=== PATIENT | female | born 1940 | race Caucasian/White ===

== ENCOUNTER 2017-01-10 05:13 | Outpatient (CLI) | payer MEDICARE, OTHER | END 2017-01-10 05:14 | disposition short-term general hospital (02) | LOC: EMS 05:13 | PROVIDERS: ATTEND Surgery | DX: R07.9 Chest pain, unspecified (principal) | CPT/HCPCS: A0425; A0433 ==

== ENCOUNTER 2017-05-03 08:47 | Inpatient (IN) | payer MEDICARE, OTHER, MEDICAID ==
[2017-05-03] MEDS ORDERED: ONDANSETRON 4 MG/2 ML VIAL IVP STA (09:17)
[2017-05-03] MEDS ORDERED: HYDROmorphone 0.5 MG/0.5 ML SYRINGE IVP STA ×2 (09:17→12:32)
--- NOTE | 2017-05-03 09:17 | ED Physician Documentation ---
PD HPI ABD PAIN - Stated complaint Stated Complaint: ABD PX - Chief complaint Chief Complaint: Abd Pain - History obtained from History obtained from: Patient - History of Present Illness Timing - onset: How many days ago (2-3) Timing - duration: Days Timing - details: Gradual onset, Still present Quality: Cramping, Aching, Pain Location: LLQ Radiation: Left flank Improved by: No: Eating, Position Worsened by: Position. No: Eating, Breathing, Palpation Associated symptoms: Nausea. No: Fever, Vomiting, Diarrhea, Constipation, Dysuria, Chest pain Similar symptoms before: Diagnosis (kidney stones in the past with similar symptoms.) Review of Systems Constitutional: denies: Fever, Chills Eyes: reports: Loss of vision (chjronic blind) Nose: denies: Rhinorrhea / runny nose, Congestion Throat: denies: Sore throat Respiratory: denies: Cough GI: reports: Abdominal Pain, Nausea, Vomiting. denies: Constipation, Diarrhea : denies: Dysuria, Frequency Skin: reports: Rash, Lesions Neurologic: reports: Generalized weakness. denies: Focal weakness, Numbness, Near syncope Immunocompromised: denies: Immunocompromised PD PAST MEDICAL HISTORY - Past Medical History Cardiovascular: [place] Respiratory: None Neuro: None Endocrine/Autoimmune: Type 2 diabetes GI: Diverticulitis : Kidney stones - Past Surgical History Past Surgical History: Yes - Present Medications Home Medications: Ambulatory Orders Medication Instructions Recorded Confirmed Insulin Glargine,Hum.rec.anlog 40 unit SQ HS 11/12/12 11/12/12 [Lantus Solostar] Atorvastatin Calcium 80 mg PO DAILY 05/03/17 05/03/17 Carvedilol 3.125 mg PO DAILY 05/03/17 05/03/17 Gabapentin 100 mg PO DAILY 05/03/17 05/03/17 Hydroxychloroquine [Plaquenil] 200 mg PO DAILY 05/03/17 05/03/17 Isosorbide Mononitrate [Isosorbide 30 mg PO DAILY 05/03/17 05/03/17 Mononitrate ER] Losartan Potassium 25 mg PO DAILY 05/03/17 05/03/17 - Allergies Allergies/Adverse Reactions: Allergies Allergy/AdvReac Type Severity Reaction Status Date / Time Penicillins Allergy Unknown unknown Verified 05/03/17 08:53 lisinopril Allergy Unknown Verified 05/03/17 08:53 metformin Allergy Emesis Verified 05/03/17 08:53 - Social History Does the pt smoke?: No Smoking Status: Never smoker Does the pt drink ETOH?: No Does the pt have substance abuse?: No - Immunizations Immunizations are current?: Yes PD ED PE NORMAL - Vitals Vital signs reviewed: Yes - General General: Alert and oriented X 3, Well developed/nourished - HEENT HEENT: Moist mucous membranes, Pharynx benign - Neck Neck: Supple, no meningeal sign, No adenopathy - Cardiac Cardiac: RRR, No murmur - Respiratory Respiratory: Clear bilaterally - Abdomen Abdomen: Normal bowel sounds, Soft, Non distended, No organomegaly, Other ( tender left lower and suprapubic with local guarding. No percussion tenderness. ) - Female Female : Deferred - Rectal Rectal: Deferred - Back Back: No CVA TTP - Derm Derm: Normal color, Warm and dry - Extremities Extremities: No tenderness to palpate, Normal ROM s pain, No edema, No calf tenderness / cord - Neuro Neuro: Alert and oriented X 3, No motor deficit, Normal speech Eye Opening: Spontaneous Motor: Obeys Commands Verbal: Oriented GCS Score: 15 Results - Vitals Vitals: Vital Signs - 24 hr 05/03/17 05/03/17 05/03/17 08:48 11:08 11:09 Temperature 36.3 C L Heart Rate 67 78 62 Respiratory 16 12 12 Rate Blood Pressure 131/85 H 113/47 L O2 Saturation 96 97 99 05/03/17 12:44 Temperature 36.6 C Heart Rate 66 Respiratory 12 Rate Blood Pressure 126/61 O2 Saturation 96 Oxygen O2 Source Room air - Labs Labs: Laboratory Tests 05/03/17 05/03/17 05/03/17 09:30 09:30 09:30 WBC 9.4 RBC 4.48 Hgb 12.6 Hct 38.9 MCV 86.9 MCH 28.1 MCHC 32.4 RDW 14.7 Plt Count 148 MPV 9.0 Neut # 7.1 H Lymph # 1.5 [place] # 0.7 Eos # 0.1 Baso # 0.0 Absolute Nucleated RBC 0.00 Nucleated RBC % 0.0 Sodium 139 Potassium 4.5 Chloride 105 Carbon Dioxide 23 Anion Gap 11.0 BUN 16 Creatinine 1.1 H Estimated GFR (MDRD) 48 L Glucose 108 H Lactic Acid 1.4 Calcium 9.4 Total Bilirubin 0.8 AST 22 ALT 15 Alkaline Phosphatase 75 Total Protein 7.5 Albumin 4.1 Globulin 3.4 Albumin/Globulin Ratio 1.2 Lipase 20 L Urine Color Urine Clarity Urine pH Ur Specific [place] Urine Protein Urine Glucose (UA) Urine Ketones Urine Occult Blood Urine Nitrite Urine Bilirubin Urine Urobilinogen Ur Leukocyte Esterase Urine RBC Urine WBC Ur Squamous Epith Cells Urine Bacteria Ur Microscopic Review Urine Culture Comments 05/03/17 11:00 WBC RBC Hgb Hct MCV MCH MCHC RDW Plt Count MPV Neut # Lymph # [place] # Eos # Baso # Absolute Nucleated RBC Nucleated RBC % Sodium Potassium Chloride Carbon Dioxide Anion Gap BUN Creatinine Estimated GFR (MDRD) Glucose Lactic Acid Calcium Total Bilirubin AST ALT Alkaline Phosphatase Total Protein Albumin Globulin Albumin/Globulin Ratio Lipase Urine Color YELLOW Urine Clarity HAZY Urine pH 6.0 Ur Specific [place] 1.010 Urine Protein NEGATIVE Urine Glucose (UA) NEGATIVE Urine Ketones NEGATIVE Urine Occult Blood TRACE-LYSE Urine Nitrite POSITIVE H Urine Bilirubin NEGATIVE Urine Urobilinogen 0.2 (NORMAL) Ur Leukocyte Esterase MODERATE H Urine RBC 0-5 Urine WBC 11-25 H Ur Squamous Epith Cells MOD Squamous H Urine Bacteria Moderate H Ur Microscopic Review INDICATED Urine Culture Comments NOT INDICATED - Rads (name of study) abd/pelvic CT Radiology: Prelim report reviewed (no kidney stones. diverticula without diverticulitis. Appendix not seen but no inflammatory changes in area. Distended gallbladder with stones. ), EMP read contemporaneously (left kidney with mild swelling/stranding. ) PD MEDICAL DECISION MAKING - ED course Complexity details: reviewed results, considered differential, d/w patient Departure - Departure Disposition: ED Place in Observation Clinical Impression: Pyelonephritis UTI (urinary tract infection) Qualifiers: Urinary tract infection type: acute pyelonephritis Qualified Code(s): N10 - Acute pyelonephritis Abdominal pain Qualifiers: Abdominal location: left lower quadrant Qualified Code(s): R10.32 - Left lower quadrant pain Vomiting Qualifiers: Vomiting type: unspecified Vomiting Intractability: non-intractable Nausea presence: with nausea Qualified Code(s): R11.2 - Nausea with vomiting, unspecified Condition: Stable Record reviewed to determine appropriate education?: Yes
[2017-05-03] MEDS ORDERED: SODIUM CHLORIDE 0.9% 1,000 ML IV ONE (09:18)
[2017-05-03] MEDS ORDERED: KETOROLAC 60 MG/2 ML VIAL IVP STA (09:19)
[2017-05-03] MEDS ORDERED: HYDROmorphone 1 MG/ML SYRINGE IVP STA ×2 (09:21→12:38)
[2017-05-03] MEDS ORDERED: IOPAMIDOL-300 100 ML VIAL ONE (09:28)
[2017-05-03 09:44] LABS: BASOPHILS % (AUTO) 0.5 %; EOSINOPHILS # (AUTO) 0.1 10^3/uL (0.0-0.7); EOSINOPHILS % (AUTO) 1.2 %; HCT - HEMATOCRIT 38.9 % (37.0-47.0); HGB - HEMOGLOBIN 12.6 g/dL (12.0-16.0); LYMPHOCYTES # (AUTO) 1.5 10^3/uL (1.5-3.5); LYMPHOCYTES % (AUTO) 15.5 %; MEAN CORPUSCULAR HEMOGLOBIN 28.1 pg (27.0-31.0); MEAN CORPUSCULAR HGB CONC 32.4 g/dL (32.0-36.0); MEAN CORPUSCULAR VOLUME 86.9 fL (81.0-99.0); MONOCYTES # (AUTO) 0.7 10^3/uL (0.0-1.0); MONOCYTES % (AUTO) 7.2 %; NEUTROPHILS # (AUTO) 7.1 10^3/uL (1.5-6.6); NEUTROPHILS % (AUTO) 75.6 %; RED BLOOD COUNT 4.48 10^6/uL (4.20-5.40); RED CELL DISTRIBUTION WIDTH 14.7 % (12.0-15.0); UNCORRECTED WHITE BLOOD COUNT 9.4 x10^3/uL; WHITE BLOOD COUNT 9.4 x10^3/uL (4.8-10.8)
[2017-05-03] MEDS ORDERED: HYDROmorphone 1 MG/ML SYRINGE ONE ×2 (09:45→12:49)
[2017-05-03] MEDS ORDERED: KETOROLAC 15 MG/ML VIAL ONE (09:46)
[2017-05-03] MEDS ORDERED: ONDANSETRON 4 MG/2 ML VIAL ONE (09:46)
[2017-05-03 09:57] LABS: ALBUMIN/GLOBULIN RATIO 1.2 (1.0-2.2); BILIRUBIN,TOTAL 0.8 mg/dL (0.2-1.0); CALCIUM 9.4 mg/dL (8.5-10.3); CREATININE 1.1 mg/dL (0.4-1.0); POTASSIUM 4.5 mmol/L (3.5-5.0); TOTAL PROTEIN 7.5 g/dL (6.7-8.2)
[2017-05-03] MEDS ORDERED: IOPAMIDOL-300 100 ML VIAL IVP ONE (10:44)
[2017-05-03 11:08] LABS: BILIRUBIN,URINE NEGATIVE (NEGATIVE)
[2017-05-03 11:12] LABS: UA w/ MICROSCOPIC CHARGE YES
[2017-05-03 11:19] LABS: UR CULTURE IF IND NOT INDICATED
--- NOTE | 2017-05-03 11:19 | CT Preliminary Report ---
Exam: CT ABDOMEN/PELVIS W/ IMPRESSION: 1. Diverticulosis. No convincing diverticulitis. 2. No hydronephrosis. Bilateral nonobstructing renal stones and/or atherosclerotic arterial calcifica tions. 3. Cholelithiasis. No evidence for cholecystitis. Borderline prominent 10 mm CBD. [facility] SITE ID: [id number]
--- NOTE | 2017-05-03 11:21 | CT Report ---
EXAM: CT ABDOMEN AND PELVIS EXAM DATE: 05/03/2017 10:44 AM. CLINICAL HISTORY: Left abd pain for 3 days. COMPARISONS: Abdominal pelvic CT 08/10/2014. TECHNIQUE: Routine helical CT imaging was performed through the abdomen and pelvis. IV contrast: 100M L OF ISOVUE 300. Enteric contrast: No. Reconstructions: Coronal and sagittal. In accordance with CT protocol optimization, one or more of the following dose reduction techniques w ere utilized for this exam: automated exposure control, adjustment of mA and/or KV based on patient s ize, or use of iterative reconstructive technique. FINDINGS: Lung Bases: Cardiomegaly with extensive coronary atherosclerotic calcifications. Prior sternotomy. Liver: Normal. No masses. Gallbladder/Bile Ducts: Distended gallbladder with dependent stone. Borderline prominent 10 mm common bile duct. Spleen: Normal. Splenule noted. Pancreas: Normal. Adrenal Glands: Normal. Kidneys: Calcifications within both bilateral upper renal poles may be from nonobstructing stones and /or atherosclerotic arterial calcifications. Peritoneal Cavity/Bowel: Diverticulosis. Appendix not identified. No inflamed appendix evident. Lower ventral abdominal wall diastases. Pelvic Organs: Prior hysterectomy. Unremarkable bladder. Vasculature: No aneurysms or other significant abnormality. Bones: Thoracic spine DISH. Advanced lumbar spine degenerative changes. Mild convex left lower lumbar scoliosis. Other: None. IMPRESSION: 1. Diverticulosis. No convincing diverticulitis. 2. No hydronephrosis. Bilateral nonobstructing renal stones and/or atherosclerotic arterial calcifica tions. 3. Cholelithiasis. No evidence for cholecystitis. Borderline prominent 10 mm CBD. [facility] Referring Provider Line: [phone] SITE ID: [id number]
[2017-05-03] MEDS ORDERED: cefTRIAXone 1 GM in SODIUM CHLORIDE 0.9% MINIBAG 100 ML IV STA (12:06)
[2017-05-03] MEDS ORDERED: cefTRIAXone 1 GM VIAL ONE (12:25)
[2017-05-03] MEDS ORDERED: diphenhydrAMINE INJ 50 MG/ML VIAL IVP STA (13:32)
[2017-05-03] MEDS ORDERED: fentaNYL 100 MCG/2 ML VIAL IVP STA (13:33)
[2017-05-03] MEDS ORDERED: diphenhydrAMINE INJ 50 MG/ML VIAL ONE (13:55)
[2017-05-03] MEDS ORDERED: fentaNYL 100 MCG/2 ML VIAL ONE (13:57)
[2017-05-03] MEDS ORDERED: SODIUM CHLORIDE 0.9% 1,000 ML IV SCH (14:00)
[2017-05-03] MEDS ORDERED: DEXTROSE GEL 37.5 GM TUBE PO ONE (15:44)
[2017-05-03] MEDS: SODIUM CHLORIDE FLUSH 0.9% 10 ML SYRINGE IVP SCH ×2 (15:57→16:29)
[2017-05-03] MEDS ORDERED: DEXTROSE 50% ABBOJECT 25 GM/50 ML SYRINGE IVP SCH (16:02)
[2017-05-03] MEDS ORDERED: DEXTROSE 5%-0.45% NACL 1,000 ML IV ONE (16:03)
[2017-05-03] MEDS: SODIUM CHLORIDE FLUSH 0.9% 10 ML SYRINGE IVP PRN ×2 (16:29→18:43)
[2017-05-03] MEDS: oxyCODONE 5 MG TABLET PO PRN ×2 (16:52→21:36)
[2017-05-03] MEDS: ENOXAPARIN 40 MG/0.4 ML SYRINGE SUBQ SCH (16:53)
--- NOTE | 2017-05-03 17:05 | HISTORY & PHYSICAL EXAMINATION ---
Chief Complaint - Chief Complaint Chief Complaint: weakness, left flank pain. 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 She will be admitted as inpatient to the hospital service for further pneumonia work up, IVF, labs, cardiac/syncope work up for at least 2 midnights. History - Past Medical History Cardiovascular: reports: [place] Respiratory: reports: None Neuro: reports: None Endocrine/Autoimmune: reports: Type 2 diabetes GI: reports: Diverticulitis [employer]: reports: Breast cancer, Other (dysmenorhea) : reports: Incontinence, Kidney stones HEENT: reports: Chronic vision loss, Macular degeneration (BEST) Psych: reports: Anxiety Musculoskeletal: reports: None Derm: reports: None MRSA Hx?: No Other Past Medical History: In cardiac rehab - Past Surgical History /[employer]: reports: Hysterectomy, Oophrectomy, Mastectomy, Breast implants Cardiovascular: reports: CABG, Coronary stent - Family & Social History Family History: Mother: , Alcoholism, Father: , [place], Sister: , Cancer (ovarian) Living arrangement: At home Living Situation: Alone - Substance History Use: Uses substance without health or social issues: NONE Abuse: Recurrent use of substance despite neg consequences: NONE Dependence: Experiences withdrawal or developed tolerances: NONE - POLST Patient has POLST: No Meds/Allgy - Home Medications Home Medications: Ambulatory Orders Medication Instructions Recorded Confirmed Insulin Glargine,Hum.rec.anlog 40 unit SUBQ QPM 11/12/12 05/03/17 [Lantus Solostar] Aspirin Chewable [[place] 81 mg PO DAILY 05/03/17 05/03/17 Aspirin] Atorvastatin Calcium 80 mg PO QPM 05/03/17 05/03/17 Carvedilol 3.125 mg PO BID 05/03/17 05/03/17 Clopidogrel [Plavix] 75 mg PO QPM 05/03/17 05/03/17 Gabapentin 100 mg PO QPM 05/03/17 05/03/17 Hydroxychloroquine [Plaquenil] 200 mg PO BID 05/03/17 05/03/17 Isosorbide Mononitrate [Isosorbide 30 mg PO DAILY 05/03/17 05/03/17 Mononitrate ER] Losartan Potassium 12.5 mg PO QPM 05/03/17 05/03/17 - Allergies Allergies/Adverse Reactions: Allergies Allergy/AdvReac Type Severity Reaction Status Date / Time Penicillins Allergy Unknown unknown Verified 05/03/17 08:53 lisinopril Allergy Unknown Verified 05/03/17 08:53 metformin Allergy Emesis Verified 05/03/17 08:53 hydromorphone [From Dilaudid] AdvReac Itching Verified 05/03/17 18:14 Review of Systems - Constitutional Constitutional: reports: Weakness, Weight loss (intentional due to cardiac rehab ) - Eyes Eyes: reports: Field loss, Vision loss - Ears, Nose & Throat Ears, Nose & Throat: reports: Dentures - Respiratory Respiratory: reports: Orthopnea, SOB with exertion - Gastrointestinal Gastrointestinal: reports: Abdominal distention, Constipation (No BM since 05/01 , has chronic constipation) - Genitourinary Genitourinary: reports: Dysuria, Frequency, Urgency, Incontinence, Flank pain ( Left) - Musculoskeletal Musculoskeletal: reports: Back pain (related to pylonephritis.) - Neurological Neurological: reports: General weakness Exam - Vital Signs Reviewed Vital Signs: Yes Vital Signs: Vital Signs x48h Temp Pulse Pulse Resp BP BP Pulse Ox 05/03/17 15:07 36.4 C L 75 16 131/74 H 97 05/03/17 13:59 69 12 127/65 95 - Physical Exam General Appearance: positive: No acute distress, Alert Eyes Bilateral: positive: Normal inspection, PERRL ENT: positive: ENT inspection nml, Pharynx nml, Dry mucous membranes Neck: positive: Nml inspection, Thyroid nml, No JVD, Trachea midline Respiratory: positive: Chest non-tender, No respiratory distress, Other ( diminshed low bases bilaterally) Cardiovascular: positive: Regular rate & rhythm, Systolic murmur Peripheral Pulses: positive: 1+ Abdomen: positive: No organomegaly, Nml bowel sounds, Tenderness, Guarding Back: positive: CVA tenderness (L) Skin: positive: Color nml, No rash, Warm, Dry, Pallor Extremities: positive: Non-tender, Full ROM, Nml appearance, No pedal edema Neurologic/Psychiatric: positive: Oriented x3, CN's nml (2-12), Sensation nml, Mood/affect nml, Weakness, Sensory loss (related to blindness.) Conclusion/Plan - Lab Results Lab results reviewed: Yes Fish Bones: 05/03/17 09:30 05/03/17 09:30 - Diagnostic Imaging Results Diagnostic Imaging Results: positive: Prelim report reviewed - EKG Results EKG Interpreted Independently: Yes Issues/Core Measures - Anticipated LOS Anticipated Stay Length: 2 or more midnights - Issues Hospital Issues and Management Plan: Pylonephritis: Patient prescribed Aztreonam IV every 6 hours for moderate pyelonephritis. Plan: Will monitor vital signs and signs of intolerance to medication. We will also continue pain management. Left flank pain: Likely due to acute infection. Denies recent injury or fall. Plan: Topical lidocaine patch for added comfort. IV tylenol, PRN. Limit narcotics. Blindness: First signs of vision loss at age 28, progressive. Now only sees figures of people. Plan: Keep everything within reach. Diabetes mellitus type 2: Diagnosed 20 years ago. Plan: Sliding scale insulin resumed. Encourage regular meals. CAD: Status post 2-vessel CABG in 1996, [place] with 2 cardiac stents in December of 2016. Contribute to DM history. Plan: Continue outpatient cardiac rehab. Patient states that she has completed 23 sessions with healthy weight loss and improved stamina. hypoglycemia: Patient as low as 52mg/dl once on the nursing floor. Juice and snacks offered with not much improvement. IV dextrose administered with an improvement up to 171mg/dl. Likely from reports of patient not eating all day, in addition to acute illness. Plan: Sliding scale insulin ordered with hypoglycemic protocol. Will continue to monitor bedside blood glucose and mental status. DVT prophylaxis: Enoxaparin SQ. Spent 40 minutes for patient exam. - DVT/VTE - Prophylaxis VTE/DVT Device ordered at admit?: Yes VTE/DVT Prophylaxis med ordered at admit?: Yes - Stroke - Rehab Assessment Rehab services assessment to be ordered?: No Not Ordered - Medical Reason: Contraindicated - AMI - Statin at Admit Aspirin Prescribed on Admit: Yes
[2017-05-03] MEDS ORDERED: AZTREONAM 2 GM in SODIUM CHLORIDE 0.9% MINIBAG 100 ML IV SCH (18:00)
[2017-05-03 18:06] LABS: HEMOGLOBIN A1C 0.72 g/dL
[2017-05-03] MEDS: LIDOCAINE PATCH 5% TOP PRN (19:59)
[2017-05-03] MEDS ORDERED: INSULIN GLARGINE 300 UNIT/3 ML PEN SUBQ SCH (21:00)
[2017-05-03] MEDS: INSULIN ASPART 300 UNIT/3 ML PEN SUBQ SCH (21:35)
[2017-05-03] MEDS: CARVEDILOL 3.125 MG TABLET PO SCH (21:36)
[2017-05-03] MEDS: CLOPIDOGREL 75 MG TABLET PO SCH (21:36)
[2017-05-03] MEDS: GABAPENTIN 100 MG CAPSULE PO SCH (21:36)
[2017-05-03] MEDS: ATORVASTATIN 40 MG TABLET PO SCH (21:37)
[2017-05-04] MEDS: SODIUM CHLORIDE FLUSH 0.9% 10 ML SYRINGE IVP PRN (01:35)
[2017-05-04] MEDS: oxyCODONE 5 MG TABLET PO PRN ×4 (01:36→20:21)
[2017-05-04 05:44] LABS: BASOPHILS # (AUTO) 0.1 10^3/uL (0.0-0.1); BASOPHILS % (AUTO) 0.8 %; EOSINOPHILS # (AUTO) 0.2 10^3/uL (0.0-0.7); EOSINOPHILS % (AUTO) 3.1 %; HCT - HEMATOCRIT 35.2 % (37.0-47.0); HGB - HEMOGLOBIN 11.3 g/dL (12.0-16.0); LYMPHOCYTES # (AUTO) 1.8 10^3/uL (1.5-3.5); LYMPHOCYTES % (AUTO) 28.1 %; MEAN CORPUSCULAR HEMOGLOBIN 28.2 pg (27.0-31.0); MEAN CORPUSCULAR VOLUME 88.1 fL (81.0-99.0); MEAN PLATELET VOLUME 8.6 fL (7.9-10.8); MONOCYTES # (AUTO) 0.7 10^3/uL (0.0-1.0); MONOCYTES % (AUTO) 11.4 %; NEUTROPHILS # (AUTO) 3.7 10^3/uL (1.5-6.6); NEUTROPHILS % (AUTO) 56.6 %; RED CELL DISTRIBUTION WIDTH 14.7 % (12.0-15.0); UNCORRECTED WHITE BLOOD COUNT 6.5 x10^3/uL; WHITE BLOOD COUNT 6.5 x10^3/uL (4.8-10.8)
[2017-05-04] MEDS: SODIUM CHLORIDE FLUSH 0.9% 10 ML SYRINGE IVP SCH ×3 (05:50→20:38)
[2017-05-04 05:55] LABS: ALBUMIN/GLOBULIN RATIO 1.1 (1.0-2.2); BILIRUBIN,TOTAL 0.6 mg/dL (0.2-1.0); CALCIUM 8.7 mg/dL (8.5-10.3); CREATININE 1.1 mg/dL (0.4-1.0); POTASSIUM 4.2 mmol/L (3.5-5.0); TOTAL PROTEIN 6.6 g/dL (6.7-8.2)
[2017-05-04 06:21] LABS: NP AUTO DIFFERENTIAL? NO; NP MAN DIFFERENTIAL? YES; PLATELET ESTIMATE, MANUAL NORMAL (130-450,000) (NORMAL)
[2017-05-04] MEDS: INSULIN ASPART 300 UNIT/3 ML PEN SUBQ SCH ×4 (08:09→20:21)
[2017-05-04] MEDS: POLYETHYLENE GLYCOL 3350 17 GM PACKET PO SCH (08:19)
[2017-05-04] MEDS: ASPIRIN CHEW 81 MG TABLET PO SCH (08:20)
[2017-05-04] MEDS: ENOXAPARIN 40 MG/0.4 ML SYRINGE SUBQ SCH (08:20)
[2017-05-04] MEDS: CARVEDILOL 3.125 MG TABLET PO SCH ×2 (08:20→20:19)
[2017-05-04] MEDS: ISOSORBIDE MONONITRATE ER 30 MG TABLET PO SCH (08:23)
[2017-05-04] MEDS ORDERED: MAGNESIUM CITRATE 296 ML BOTTLE PO PRN (11:04)
[2017-05-04] MEDS: cefTRIAXone 1 GM in SODIUM CHLORIDE 0.9% MINIBAG 100 ML IV SCH (11:39)
--- NOTE | 2017-05-04 12:32 | PROVIDER PROGRESS NOTE ---
Subjective - Prog Note Date Prog Note Date: 05/04/17 Prog Note Time: 12:31 - Subjective Pt reports feeling: No change Subjective: Stacie complains of ongoing left flank pain that is somewhat better with topical lidocaine patch and abdominal fullness with nausea related to constipation. She denies SOB, chest pain, vomiting or new cough. Current Medications - Current Medications Current Medications: Active Medications Generic Name Dose Route Start Last Admin Trade Name Freq PRN Reason Stop Dose Admin Acetaminophen 650 mg 05/03/17 13:47 Tylenol PO Q4HR PRN Pain 1 to 4 Aspirin 81 mg 05/04/17 09:00 05/04/17 08:20 [facility] Aspirin PO 81 mg DAILY ALLAN Administration Atorvastatin Calcium 80 mg 05/03/17 21:00 05/03/17 21:37 Lipitor PO 80 mg QPM ALLAN Administration Carvedilol 3.125 mg 05/03/17 21:00 05/04/17 08:20 Coreg PO 3.125 mg BID ALLAN Administration Clopidogrel Bisulfate 75 mg 05/03/17 21:00 05/03/17 21:36 Plavix PO 75 mg QPM ALLAN Administration Enoxaparin Sodium 40 mg 05/03/17 17:00 05/04/17 08:20 Lovenox SUBQ 40 mg DAILY ALLAN Administration Gabapentin 100 mg 05/03/17 21:00 05/03/17 21:36 Neurontin PO 100 mg QPM ALLAN Administration Acetaminophen 100 mls @ 400 mls/hr 05/03/17 17:25 Ofirmev IV Q6HR PRN PAIN Ceftriaxone Sodium 1 gm/ 100 mls @ 200 mls/hr 05/04/17 12:00 05/04/17 11:39 Sodium Chloride IV 200 mls/hr Q24H ALLAN Administration Insulin Aspart 1 - 5 unit 05/03/17 21:00 05/04/17 11:25 Novolog SUBQ Not Given 0800,1200,1700,2100 [facility] Protocol Insulin Glargine 30 unit 05/04/17 12:31 Lantus Solostar SUBQ QPM [facility] Isosorbide Mononitrate 30 mg 05/04/17 09:00 05/04/17 08:23 Imdur PO 30 mg DAILY ALLAN Administration Lidocaine 1 patch 05/03/17 17:42 05/03/17 19:59 Lidoderm Patch TOP 1 patch DAILY PRN Administration PAIN Losartan Potassium 12.5 mg 05/04/17 21:00 Cozaar PO QPM ALLAN Magnesium Citrate 296 ml 05/04/17 11:04 PO 05/05/17 11:03 ONCE PRN Constipation Oxycodone HCl 5 mg 05/03/17 13:47 05/04/17 11:53 Roxicodone PO 5 mg Q4HR PRN Administration Pain 5 to 7 Polyethylene Glycol 17 gm 05/04/17 09:00 05/04/17 08:19 Miralax PO 17 gm DAILY ALLAN Administration Sodium Chloride 10 ml 05/03/17 13:47 05/04/17 01:35 Normal Saline Flush 0.9% IVP 10 ml PRN PRN Administration NEEDED PER PROVIDER ORDERS Sodium Chloride 10 ml 05/03/17 14:00 05/04/17 11:39 Normal Saline Flush 0.9% IVP 10 ml Q8HR ALLAN Administration Insulin Glargine,Hum.rec.anlog [Lantus Solostar] 40 unit SUBQ QPM 11/12/12 Aspirin Chewable [[facility] Aspirin] 81 mg PO DAILY 05/03/17 Atorvastatin Calcium 80 mg PO QPM 05/03/17 Carvedilol 3.125 mg PO BID 05/03/17 Clopidogrel [Plavix] 75 mg PO QPM 05/03/17 Gabapentin 100 mg PO QPM 05/03/17 Hydroxychloroquine [Plaquenil] 200 mg PO BID 05/03/17 Isosorbide Mononitrate [Isosorbide Mononitrate ER] 30 mg PO DAILY 05/03/17 Losartan Potassium 12.5 mg PO QPM 05/03/17 Objective - Vital Signs/Intake & Output Reviewed Vital Signs: Yes Vital Signs: Vital Signs x48h Temp Pulse Resp BP Pulse Ox 05/04/17 12:17 36.3 C L 73 18 114/50 L 94 05/04/17 07:26 36.5 C 62 20 135/69 H 93 05/04/17 05:00 36.4 C L 78 16 108/58 L 97 Intake & Output: Intake & Output 05/01/17 05/02/17 05/03/17 05/04/17 23:59 23:59 23:59 23:59 Intake Total 885 560 Balance 885 560 - Objective General Appearance: positive: Alert, Moderate distress Eyes Bilateral: positive: Other (Chronic blindness with icterus bilaterally.) ENT: positive: ENT inspection nml, Pharynx nml, No signs of dehydration Neck: positive: Nml inspection, Thyroid nml, No JVD, Trachea midline Respiratory: positive: Chest non-tender, No respiratory distress, Breath sounds nml Cardiovascular: positive: Irregularly irregular, Systolic murmur Abdomen: positive: Tenderness, Guarding, Abnml bowel sounds Back: positive: Nml inspection, CVA tenderness (L) Skin: positive: No rash, Warm, Dry, Pallor Extremities: positive: Non-tender, Full ROM, Nml appearance, No pedal edema Neurologic/Psychiatric: positive: Oriented x3, CN's nml (2-12), Motor nml, Mood/ affect nml, Sensory loss - Lab Results Fish Bones: 05/04/17 05:36 05/04/17 05:36 Other Labs: Lab Results x24hrs 05/04/17 05/04/17 05/04/17 Range/Units 11:03 08:01 07:14 WBC (4.8-10.8) x10^3/uL RBC (4.20-5.40) 10^6/uL Hgb (12.0-16.0) g/dL Hct (37.0-47.0) % MCV (81.0-99.0) fL MCH (27.0-31.0) pg MCHC (32.0-36.0) g/dL RDW (12.0-15.0) % Plt Count (130-450) 10^3/uL MPV (7.9-10.8) fL Neut # (1.5-6.6) 10^3/uL Lymph # (1.5-3.5) 10^3/uL Parker # (0.0-1.0) 10^3/uL Eos # (0.0-0.7) 10^3/uL Baso # (0.0-0.1) 10^3/uL Absolute Nucleated RBC x10^3/uL Band Neuts % (Manual) Nucleated RBC % /100WBC Differential Comment Platelet Estimate (NORMAL) RBC Morph Micro Appear (NORMAL) Sodium (135-145) mmol/L Potassium (3.5-5.0) mmol/L Chloride (101-111) mmol/L Carbon Dioxide (21-32) mmol/L Anion Gap (6-13) BUN (6-20) mg/dL Creatinine (0.4-1.0) mg/dL Estimated GFR (MDRD) (>89) Glucose (70-100) mg/dL POC Whole Bld Glucose 115 H 70 50 L* (70 - 100) mg/dL Lactic Acid (0.5-2.2) mmol/L Calcium (8.5-10.3) mg/dL Phosphorus (2.5-4.6) mg/dL Magnesium (1.7-2.8) mg/dL Total Bilirubin (0.2-1.0) mg/dL AST (10-42) IU/L ALT (10-60) IU/L Alkaline Phosphatase (42-121) IU/L Total Protein (6.7-8.2) g/dL Albumin (3.2-5.5) g/dL Globulin (2.1-4.2) g/dL Albumin/Globulin Ratio (1.0-2.2) 05/04/17 05/04/17 05/04/17 Range/Units 05:36 05:36 05:36 WBC 6.5 (4.8-10.8) x10^3/uL RBC 4.00 L (4.20-5.40) 10^6/uL Hgb 11.3 L (12.0-16.0) g/dL Hct 35.2 L (37.0-47.0) % MCV 88.1 (81.0-99.0) fL MCH 28.2 (27.0-31.0) pg MCHC 32.0 (32.0-36.0) g/dL RDW 14.7 (12.0-15.0) % Plt Count 128 L (130-450) 10^3/uL MPV 8.6 (7.9-10.8) fL Neut # 3.7 (1.5-6.6) 10^3/uL Lymph # 1.8 (1.5-3.5) 10^3/uL Parker # 0.7 (0.0-1.0) 10^3/uL Eos # 0.2 (0.0-0.7) 10^3/uL Baso # 0.1 (0.0-0.1) 10^3/uL Absolute Nucleated RBC 0.00 x10^3/uL Band Neuts % (Manual) Not Reportable Nucleated RBC % 0.0 /100WBC Differential Comment MANUAL=AUTO DIFF Platelet Estimate NORMAL (130-450,000) (NORMAL) RBC Morph Micro Appear NORMAL APPEARANCE (NORMAL) Sodium 140 (135-145) mmol/L Potassium 4.2 (3.5-5.0) mmol/L Chloride 107 (101-111) mmol/L Carbon Dioxide 24 (21-32) mmol/L Anion Gap 9.0 (6-13) BUN 15 (6-20) mg/dL Creatinine 1.1 H (0.4-1.0) mg/dL Estimated GFR (MDRD) 48 L (>89) Glucose 62 L (70-100) mg/dL POC Whole Bld Glucose (70 - 100) mg/dL Lactic Acid 0.9 (0.5-2.2) mmol/L Calcium 8.7 (8.5-10.3) mg/dL Phosphorus 4.0 (2.5-4.6) mg/dL Magnesium 2.0 (1.7-2.8) mg/dL Total Bilirubin 0.6 (0.2-1.0) mg/dL AST 18 (10-42) IU/L ALT 12 (10-60) IU/L Alkaline Phosphatase 56 (42-121) IU/L Total Protein 6.6 L (6.7-8.2) g/dL Albumin 3.4 (3.2-5.5) g/dL Globulin 3.2 (2.1-4.2) g/dL Albumin/Globulin Ratio 1.1 (1.0-2.2) 05/03/17 05/03/17 05/03/17 Range/Units 20:23 18:48 16:42 WBC (4.8-10.8) x10^3/uL RBC (4.20-5.40) 10^6/uL Hgb (12.0-16.0) g/dL Hct (37.0-47.0) % MCV (81.0-99.0) fL MCH (27.0-31.0) pg MCHC (32.0-36.0) g/dL RDW (12.0-15.0) % Plt Count (130-450) 10^3/uL MPV (7.9-10.8) fL Neut # (1.5-6.6) 10^3/uL Lymph # (1.5-3.5) 10^3/uL Parker # (0.0-1.0) 10^3/uL Eos # (0.0-0.7) 10^3/uL Baso # (0.0-0.1) 10^3/uL Absolute Nucleated RBC x10^3/uL Band Neuts % (Manual) Nucleated RBC % /100WBC Differential Comment Platelet Estimate (NORMAL) RBC Morph Micro Appear (NORMAL) Sodium (135-145) mmol/L Potassium (3.5-5.0) mmol/L Chloride (101-111) mmol/L Carbon Dioxide (21-32) mmol/L Anion Gap (6-13) BUN (6-20) mg/dL Creatinine (0.4-1.0) mg/dL Estimated GFR (MDRD) (>89) Glucose (70-100) mg/dL POC Whole Bld Glucose 188 H 251 H 171 H (70 - 100) mg/dL Lactic Acid (0.5-2.2) mmol/L Calcium (8.5-10.3) mg/dL Phosphorus (2.5-4.6) mg/dL Magnesium (1.7-2.8) mg/dL Total Bilirubin (0.2-1.0) mg/dL AST (10-42) IU/L ALT (10-60) IU/L Alkaline Phosphatase (42-121) IU/L Total Protein (6.7-8.2) g/dL Albumin (3.2-5.5) g/dL Globulin (2.1-4.2) g/dL Albumin/Globulin Ratio (1.0-2.2) 05/03/17 05/03/17 05/03/17 Range/Units 16:02 15:37 15:15 WBC (4.8-10.8) x10^3/uL RBC (4.20-5.40) 10^6/uL Hgb (12.0-16.0) g/dL Hct (37.0-47.0) % MCV (81.0-99.0) fL MCH (27.0-31.0) pg MCHC (32.0-36.0) g/dL RDW (12.0-15.0) % Plt Count (130-450) 10^3/uL MPV (7.9-10.8) fL Neut # (1.5-6.6) 10^3/uL Lymph # (1.5-3.5) 10^3/uL Parker # (0.0-1.0) 10^3/uL Eos # (0.0-0.7) 10^3/uL Baso # (0.0-0.1) 10^3/uL Absolute Nucleated RBC x10^3/uL Band Neuts % (Manual) Nucleated RBC % /100WBC Differential Comment Platelet Estimate (NORMAL) RBC Morph Micro Appear (NORMAL) Sodium (135-145) mmol/L Potassium (3.5-5.0) mmol/L Chloride (101-111) mmol/L Carbon Dioxide (21-32) mmol/L Anion Gap (6-13) BUN (6-20) mg/dL Creatinine (0.4-1.0) mg/dL Estimated GFR (MDRD) (>89) Glucose (70-100) mg/dL POC Whole Bld Glucose 58 L* 52 L* 58 L* (70 - 100) mg/dL Lactic Acid (0.5-2.2) mmol/L Calcium (8.5-10.3) mg/dL Phosphorus (2.5-4.6) mg/dL Magnesium (1.7-2.8) mg/dL Total Bilirubin (0.2-1.0) mg/dL AST (10-42) IU/L ALT (10-60) IU/L Alkaline Phosphatase (42-121) IU/L Total Protein (6.7-8.2) g/dL Albumin (3.2-5.5) g/dL Globulin (2.1-4.2) g/dL Albumin/Globulin Ratio (1.0-2.2) - Diagnostic Imaging Diagnostic Imaging Results: positive: Final report reviewed Assessment/Plan - Problem List (1) Pyelonephritis Impression: Pylonephritis: Patient prescribed Rocephin IV for moderate pyelonephritis. Plan: Will monitor vital signs and signs of intolerance to medication. We will also continue pain management. (2) Left flank pain Impression: Left flank pain: Likely due to acute infection. Denies recent injury or fall. Plan: Topical lidocaine patch for added comfort. IV tylenol, PRN. Limit narcotics. (3) CAD S/P percutaneous coronary angioplasty Impression: CAD: Status post 2-vessel CABG in 1996, PR with 2 cardiac stents in December of 2016. Contribute to DM history. Plan: Continue outpatient cardiac rehab. Patient states that she has completed 23 sessions with healthy weight loss and improved stamina. (4) Blindness of both eyes Impression: Blindness: First signs of vision loss at age 28, progressive. Now only sees figures of people. Plan: Keep everything within reach. Use of voices helps Stacie recognize who you are. (5) Diabetes mellitus type 2, controlled Impression: Diabetes mellitus type 2: Diagnosed 20 years ago. Plan: Sliding scale insulin resumed, Lantus insulin decreased due to recent hypoglycemia. Encourage regular meals. (6) Hypoglycemia Impression: hypoglycemia: Patient's POC blood glucose was ~50mg/dl this AM. Juice and snacks offered with not much improvement. IV dextrose if needed, although patient ate a good breakfast and had OJ. Likely caused by acute illness. Plan: Sliding scale insulin ordered with hypoglycemic protocol. Lantus decreased today. Will continue to monitor bedside blood glucose and mental status. (7) Constipation Impression: No BM since 05/01/17 per patient. Tenderness with palpation. Patient notes a strong history of constipation, likely related to medications. No history of bowel surgery or hernias. Plan: Miralax daily, mag citrate today, and ambulation. Will monitor outputs.
[2017-05-04] MEDS: LIDOCAINE PATCH 5% TOP PRN (20:00)
[2017-05-04] MEDS: LOSARTAN 50 MG TABLET PO SCH (20:19)
[2017-05-04] MEDS: ATORVASTATIN 40 MG TABLET PO SCH (20:21)
[2017-05-04] MEDS: GABAPENTIN 100 MG CAPSULE PO SCH (20:21)
[2017-05-04] MEDS: CLOPIDOGREL 75 MG TABLET PO SCH (20:21)
[2017-05-04] MEDS: INSULIN GLARGINE 300 UNIT/3 ML PEN SUBQ SCH (20:31)
[2017-05-04] MEDS: ACETAMINOPHEN 325 MG TABLET PO PRN (22:43)
[2017-05-05] MEDS: oxyCODONE 5 MG TABLET PO PRN ×4 (03:42→21:19)
[2017-05-05] MEDS: SODIUM CHLORIDE FLUSH 0.9% 10 ML SYRINGE IVP SCH ×3 (06:06→21:37)
[2017-05-05] MEDS: INSULIN ASPART 300 UNIT/3 ML PEN SUBQ SCH ×4 (08:46→21:24)
[2017-05-05] MEDS: ASPIRIN CHEW 81 MG TABLET PO SCH (08:47)
[2017-05-05] MEDS: CARVEDILOL 3.125 MG TABLET PO SCH ×2 (08:47→21:18)
[2017-05-05] MEDS: ISOSORBIDE MONONITRATE ER 30 MG TABLET PO SCH (08:47)
[2017-05-05] MEDS: ENOXAPARIN 40 MG/0.4 ML SYRINGE SUBQ SCH (08:48)
[2017-05-05] MEDS: POLYETHYLENE GLYCOL 3350 17 GM PACKET PO SCH (08:48)
[2017-05-05 10:36] LABS: BILIRUBIN,URINE NEGATIVE (NEGATIVE)
[2017-05-05 10:53] LABS: UR CULTURE IF IND NOT INDICATED
[2017-05-05] MEDS: cefTRIAXone 1 GM in SODIUM CHLORIDE 0.9% MINIBAG 100 ML IV SCH (12:06)
--- NOTE | 2017-05-05 12:12 | PROVIDER PROGRESS NOTE ---
Subjective - Prog Note Date Prog Note Date: 05/05/17 Prog Note Time: 12:11 - Subjective Pt reports feeling: Improved, No change Subjective: Stacie continues to have Left flank pain that is not relieved by lidocaine patch , or pain medication. Current Medications - Current Medications Current Medications: Active Medications Generic Name Dose Route Start Last Admin Trade Name Freq PRN Reason Stop Dose Admin Acetaminophen 650 mg 05/03/17 13:47 05/04/17 22:43 Tylenol PO 650 mg Q4HR PRN Administration Pain 1 to 4 Aspirin 81 mg 05/04/17 09:00 05/05/17 08:47 [facility] Aspirin PO 81 mg DAILY ALLAN Administration Atorvastatin Calcium 80 mg 05/03/17 21:00 05/04/17 20:21 Lipitor PO 80 mg QPM ALLAN Administration Carvedilol 3.125 mg 05/03/17 21:00 05/05/17 08:47 Coreg PO 3.125 mg BID ALLAN Administration Clopidogrel Bisulfate 75 mg 05/03/17 21:00 05/04/17 20:21 Plavix PO 75 mg QPM ALLAN Administration Enoxaparin Sodium 40 mg 05/03/17 17:00 05/05/17 08:48 Lovenox SUBQ 40 mg DAILY ALLAN Administration Gabapentin 100 mg 05/03/17 21:00 05/04/17 20:21 Neurontin PO 100 mg QPM ALLAN Administration Acetaminophen 100 mls @ 400 mls/hr 05/03/17 17:25 Ofirmev IV Q6HR PRN PAIN Ceftriaxone Sodium 1 gm/ 100 mls @ 200 mls/hr 05/04/17 12:00 05/05/17 12:06 Sodium Chloride IV 200 mls/hr Q24H ALLAN Administration Insulin Aspart 1 - 5 unit 05/03/17 21:00 05/05/17 11:19 Novolog SUBQ Not Given 0800,1200,1700,2100 [facility] Protocol Insulin Glargine 30 unit 05/04/17 21:00 05/04/17 20:31 Lantus Solostar SUBQ 30 unit QPM ALLAN Administration Isosorbide Mononitrate 30 mg 05/04/17 09:00 05/05/17 08:47 Imdur PO 30 mg DAILY ALLAN Administration Lidocaine 1 patch 05/03/17 17:42 05/04/17 20:00 Lidoderm Patch TOP 1 patch DAILY PRN Administration PAIN Losartan Potassium 12.5 mg 05/04/17 21:00 05/04/17 20:19 Cozaar PO 12.5 mg QPM ALLAN Administration Oxycodone HCl 5 mg 05/03/17 13:47 05/05/17 09:36 Roxicodone PO 5 mg Q4HR PRN Administration Pain 5 to 7 Polyethylene Glycol 17 gm 05/04/17 09:00 05/05/17 08:48 Miralax PO 17 gm DAILY ALLAN Administration Sodium Chloride 10 ml 05/03/17 13:47 05/04/17 01:35 Normal Saline Flush 0.9% IVP 10 ml PRN PRN Administration NEEDED PER PROVIDER ORDERS Sodium Chloride 10 ml 05/03/17 14:00 05/05/17 06:06 Normal Saline Flush 0.9% IVP 10 ml Q8HR ALLAN Administration Insulin Glargine,Hum.rec.anlog [Lantus Solostar] 40 unit SUBQ QPM 11/12/12 Aspirin Chewable [[facility] Aspirin] 81 mg PO DAILY 05/03/17 Atorvastatin Calcium 80 mg PO QPM 05/03/17 Carvedilol 3.125 mg PO BID 05/03/17 Clopidogrel [Plavix] 75 mg PO QPM 05/03/17 Gabapentin 100 mg PO QPM 05/03/17 Hydroxychloroquine [Plaquenil] 200 mg PO BID 05/03/17 Isosorbide Mononitrate [Isosorbide Mononitrate ER] 30 mg PO DAILY 05/03/17 Losartan Potassium 12.5 mg PO QPM 05/03/17 Objective - Vital Signs/Intake & Output Reviewed Vital Signs: Yes Vital Signs: Vital Signs x48h Temp Pulse Resp BP Pulse Ox 05/05/17 07:42 36.3 C L 65 20 134/66 H 97 Intake & Output: Intake & Output 05/02/17 05/03/17 05/04/17 05/05/17 23:59 23:59 23:59 23:59 Intake Total 885 2400 480 Output Total 250 Balance 885 2400 230 - Objective General Appearance: positive: No acute distress, Alert Eyes Bilateral: positive: Normal inspection ENT: positive: ENT inspection nml, Pharynx nml, No signs of dehydration Neck: positive: Nml inspection, Thyroid nml, No JVD, Trachea midline Respiratory: positive: Chest non-tender, No respiratory distress Cardiovascular: positive: No gallop, Irregularly irregular, Systolic murmur Abdomen: positive: Tenderness, Guarding, Hepatomegaly, Splenomegaly Rectal: positive: Non-tender Skin: positive: Color nml, No rash, Warm, Dry, Pallor Extremities: positive: Non-tender, Full ROM, Nml appearance, No pedal edema Neurologic/Psychiatric: positive: Oriented x3, CN's nml (2-12), Motor nml, Sensation nml, Mood/affect nml, Weakness, Sensory loss, Depressed mood/affect Reflexes: Bicep (R): 2+, Bicep (L): 2+ - Lab Results Fish Bones: 05/05/17 13:00 05/05/17 13:00 Other Labs: Lab Results x24hrs 05/05/17 05/05/17 05/05/17 Range/Units 11:13 10:25 07:35 POC Whole Bld Glucose 95 70 (70 - 100) mg/dL Urine Color YELLOW Urine Clarity CLEAR (CLEAR) Urine pH 6.0 (5.0-7.5) PH Ur Specific [place] <=1.005 (1.002-1.030) Urine Protein NEGATIVE (NEGATIVE) mg/dL Urine Glucose (UA) NEGATIVE (NEGATIVE) mg/dL Urine Ketones NEGATIVE (NEGATIVE) mg/dL Urine Occult Blood NEGATIVE (NEGATIVE) Urine Nitrite NEGATIVE (NEGATIVE) Urine Bilirubin NEGATIVE (NEGATIVE) Urine Urobilinogen 0.2 (NORMAL) (NORMAL) E.U./dL Ur Leukocyte Esterase TRACE H (NEGATIVE) Urine RBC 0-5 (0-5) /HPF Urine WBC 6-10 H (0-5) /HPF Ur Squamous Epith Cells MOD Squamous H (<= Few) Urine Bacteria None Seen (None Seen) /HPF Urine Culture Comments NOT INDICATED 05/05/17 05/04/17 05/04/17 Range/Units 00:57 20:18 16:02 POC Whole Bld Glucose 110 H 121 H 73 (70 - 100) mg/dL Urine Color Urine Clarity (CLEAR) Urine pH (5.0-7.5) PH Ur Specific [place] (1.002-1.030) Urine Protein (NEGATIVE) mg/dL Urine Glucose (UA) (NEGATIVE) mg/dL Urine Ketones (NEGATIVE) mg/dL Urine Occult Blood (NEGATIVE) Urine Nitrite (NEGATIVE) Urine Bilirubin (NEGATIVE) Urine Urobilinogen (NORMAL) E.U./dL Ur Leukocyte Esterase (NEGATIVE) Urine RBC (0-5) /HPF Urine WBC (0-5) /HPF Ur Squamous Epith Cells (<= Few) Urine Bacteria (None Seen) /HPF Urine Culture Comments - Diagnostic Imaging Diagnostic Imaging Results: positive: Prelim report reviewed Assessment/Plan - Problem List (1) Left flank pain Impression: Likely due to acute infection. Denies recent injury or fall. This is ongoing with minimal relief from lidocaine patch or pain medications. Left sided CVA tenderness appreciated upon exam. Plan: Topical lidocaine patch for added comfort. IV tylenol, PRN. Limit narcotics. May consider re-imaging it progress is not made. (2) Pyelonephritis Impression: Attempts to obtain a culture worthy sample have failed. Straight cath ordered for a sample to culture due to concerns with ongoing flank pain. Plan: We continue to treat with IV antibiotics and will consider re-imaging if not improved. (3) CAD S/P percutaneous coronary angioplasty Impression: Patient most recently had 2 stents in December 2016 and is followed by cardiology. Plan: Continue outpatient cardiac rehab. Take all medications as prescribed. (4) Blindness of both eyes Impression: Patient began to loose her sight at the age of 28 years, and has been steadily progressing to full blindness. 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 Plan: Patient makes great accommodations for this disability such as having a blood glucose at home that says the values out loud. Avoid sun light. (5) Diabetes mellitus type 2, controlled Impression: Blood sugars have now been more stabilized and running between 84-170 for the past 24 hours. There have no more noted hypoglycemia. Plan: Continue POC bedside monitoring and insulin. Patient continues to have a good appetite. (6) Constipation Impression: This has been chronic for her and she feels that it is neuropathy related. Concern for constipation being the culprit for her left flank pain. Plan: continue laxative routine and regular bowel program with ambulation.
[2017-05-05] MEDS: ACETAMINOPHEN 1,000 MG/100 ML 100 ML IV PRN (12:51)
[2017-05-05] MEDS: SODIUM CHLORIDE FLUSH 0.9% 10 ML SYRINGE IVP PRN (13:21)
[2017-05-05 13:24] LABS: HCT - HEMATOCRIT 34.5 % (37.0-47.0); HGB - HEMOGLOBIN 11.3 g/dL (12.0-16.0); MEAN CORPUSCULAR HEMOGLOBIN 28.6 pg (27.0-31.0); MEAN CORPUSCULAR HGB CONC 32.8 g/dL (32.0-36.0); MEAN CORPUSCULAR VOLUME 87.4 fL (81.0-99.0); MEAN PLATELET VOLUME 9.2 fL (7.9-10.8); RED BLOOD COUNT 3.94 10^6/uL (4.20-5.40); RED CELL DISTRIBUTION WIDTH 14.7 % (12.0-15.0)
[2017-05-05 13:27] LABS: CREATININE 1.1 mg/dL (0.4-1.0); MAGNESIUM 2.1 mg/dL (1.7-2.8); POTASSIUM 4.8 mmol/L (3.5-5.0)
[2017-05-05 13:49] LABS: BILIRUBIN,URINE NEGATIVE (NEGATIVE)
[2017-05-05 14:02] LABS: UR CULTURE IF IND NOT INDICATED
[2017-05-05] MEDS: PHENAZOPYRIDINE 100 MG TABLET PO SCH (19:49)
[2017-05-05] MEDS: CLOPIDOGREL 75 MG TABLET PO SCH (21:18)
[2017-05-05] MEDS: ATORVASTATIN 40 MG TABLET PO SCH (21:18)
[2017-05-05] MEDS: GABAPENTIN 100 MG CAPSULE PO SCH (21:18)
[2017-05-05] MEDS: LIDOCAINE PATCH 5% TOP PRN (21:21)
[2017-05-05] MEDS: LOSARTAN 50 MG TABLET PO SCH (21:35)
[2017-05-05] MEDS: INSULIN GLARGINE 300 UNIT/3 ML PEN SUBQ SCH (21:36)
[2017-05-06] MEDS: ACETAMINOPHEN 1,000 MG/100 ML 100 ML IV PRN ×2 (00:33→08:49)
[2017-05-06] MEDS: SODIUM CHLORIDE FLUSH 0.9% 10 ML SYRINGE IVP PRN ×2 (00:33→00:59)
[2017-05-06] MEDS: oxyCODONE 5 MG TABLET PO PRN ×3 (03:43→23:53)
[2017-05-06] MEDS: SODIUM CHLORIDE FLUSH 0.9% 10 ML SYRINGE IVP SCH ×3 (06:07→21:51)
[2017-05-06] MEDS: ENOXAPARIN 40 MG/0.4 ML SYRINGE SUBQ SCH (08:48)
[2017-05-06] MEDS: INSULIN ASPART 300 UNIT/3 ML PEN SUBQ SCH ×4 (08:49→21:49)
[2017-05-06] MEDS: ISOSORBIDE MONONITRATE ER 30 MG TABLET PO SCH (08:50)
[2017-05-06] MEDS: ASPIRIN CHEW 81 MG TABLET PO SCH (08:50)
[2017-05-06] MEDS: CARVEDILOL 3.125 MG TABLET PO SCH ×2 (08:50→20:22)
[2017-05-06] MEDS: PHENAZOPYRIDINE 100 MG TABLET PO SCH ×4 (08:50→18:10)
[2017-05-06] MEDS ORDERED: IOPAMIDOL-300 100 ML VIAL ONE (10:48)
[2017-05-06] MEDS ORDERED: IOPAMIDOL-300 50 ML VIAL ONE (10:48)
[2017-05-06] MEDS: POLYETHYLENE GLYCOL 3350 17 GM PACKET PO SCH (11:46)
[2017-05-06] MEDS: cefTRIAXone 1 GM in SODIUM CHLORIDE 0.9% MINIBAG 100 ML IV SCH (13:15)
--- NOTE | 2017-05-06 14:13 | CT Report ---
CT IVP: 05/06/2017 CLINICAL INDICATION: Right flank pain, constipation. COMPARISON: 05/03/2017 TECHNIQUE: Axial CT images of the abdomen and pelvis were obtained prior to and following 100 mL Iso mignon-300 intravenously, using split bolus technique. In accordance with CT protocol optimization, one or more of the following dose reduction techniques w ere utilized for this exam: automated exposure control, adjustment of mA and/or KV based on patient size, or use of iterative reconstructive technique. FINDINGS: Limited evaluation of the lung bases demonstrates atelectasis. Abdomen: On the unenhanced images, bilateral nonobstructing renal calculi are again noted. No hydro nephrosis or hydroureter is seen. Cholelithiasis is again noted. The kidneys demonstrate symmetric uptake and excretion of contrast. No renal collecting system lesion or ureteral lesion is appreciate d. Allowing for the phase of contrast enhancement, the liver, spleen, pancreas, and adrenal glands a re unremarkable. No abdominal adenopathy, free gas, or free fluid is present. No bowel dilatation i s seen. Pelvis: The distal ureters and urinary bladder appear unremarkable. The patient is status post hyst erectomy. There is an anterior abdominal wall hernia, containing a nonobstructed loop of small bowel as well as fat. The hernia neck measures approximately 7 cm. Osseous structures demonstrate degenerative and postsurgical changes. IMPRESSION: NO EVIDENCE OF BOWEL OBSTRUCTION. NONOBSTRUCTING RENAL CALCULI, BUT NO HYDRONEPHROSIS O R HYDROURETER. ANTERIOR ABDOMINAL WALL HERNIA, CONTAINING A NONOBSTRUCTED LOOP OF SMALL BOWEL WEL L FAT. CHOLELITHIASIS. JOB #: [id number] EXT JOB #:[id number]
[2017-05-06] MEDS ORDERED: IOPAMIDOL-300 100 ML VIAL IVP ONE (15:14)
[2017-05-06] MEDS ORDERED: IOPAMIDOL-300 50 ML VIAL PO ONE (15:14)
--- NOTE | 2017-05-06 18:14 | PROVIDER PROGRESS NOTE ---
Subjective - Prog Note Date Prog Note Date: 05/06/17 Prog Note Time: 18:11 - Subjective Pt reports feeling: No change Subjective: Stacie claims she did not sleep well and remembers another patient coming into her room and talked about " bodies". This scared her and she could not sleep after that. She admits to ongoing left flank pain that is not relieved by pain patch or oral medications. She denies SOB, chest pain, N/V or new cough. She notes that she may be a little constipated. Current Medications - Current Medications Current Medications: Active Medications Generic Name Dose Route Start Last Admin Trade Name Freq PRN Reason Stop Dose Admin Acetaminophen 650 mg 05/03/17 13:47 05/04/17 22:43 Tylenol PO 650 mg Q4HR PRN Administration Pain 1 to 4 Aspirin 81 mg 05/04/17 09:00 05/06/17 08:50 [facility] Aspirin PO 81 mg DAILY ALLAN Administration Atorvastatin Calcium 80 mg 05/03/17 21:00 05/05/17 21:18 Lipitor PO 80 mg QPM ALLAN Administration Carvedilol 3.125 mg 05/03/17 21:00 05/06/17 08:50 Coreg PO 3.125 mg BID ALLAN Administration Clopidogrel Bisulfate 75 mg 05/03/17 21:00 05/05/17 21:18 Plavix PO 75 mg QPM ALLAN Administration Enoxaparin Sodium 40 mg 05/03/17 17:00 05/06/17 08:48 Lovenox SUBQ 40 mg DAILY ALLAN Administration Gabapentin 100 mg 05/03/17 21:00 05/05/17 21:18 Neurontin PO 100 mg QPM ALLAN Administration Acetaminophen 100 mls @ 400 mls/hr 05/03/17 17:25 05/06/17 09:10 Ofirmev IV Infused Q6HR PRN Infusion PAIN Ceftriaxone Sodium 1 gm/ 100 mls @ 200 mls/hr 05/04/17 12:00 05/06/17 13:45 Sodium Chloride IV Infused Q24H ALLAN Infusion Insulin Aspart 1 - 5 unit 05/03/17 21:00 05/06/17 18:12 Novolog SUBQ Not Given 0800,1200,1700,2100 ALLAN Protocol Insulin Glargine 30 unit 05/04/17 21:00 05/05/17 21:36 Lantus Solostar SUBQ 30 unit QPM ALALN Administration Isosorbide Mononitrate 30 mg 05/04/17 09:00 05/06/17 08:50 Imdur PO 30 mg DAILY ALLAN Administration Lidocaine 1 patch 05/03/17 17:42 05/05/17 21:21 Lidoderm Patch TOP 1 patch DAILY PRN Administration PAIN Losartan Potassium 12.5 mg 05/04/17 21:00 05/05/17 21:35 Cozaar PO Not Given QPM ALLAN Oxycodone HCl 5 mg 05/03/17 13:47 05/06/17 18:10 Roxicodone PO 5 mg Q4HR PRN Administration Pain 5 to 7 Phenazopyridine HCl 100 mg 05/05/17 17:00 05/06/17 18:10 Pyridium PO 100 mg TIDWM ALLAN Administration Polyethylene Glycol 17 gm 05/04/17 09:00 05/06/17 11:46 Miralax PO Not Given DAILY ALLAN Sodium Chloride 10 ml 05/03/17 13:47 05/06/17 00:59 Normal Saline Flush 0.9% IVP 10 ml PRN PRN Administration NEEDED PER PROVIDER ORDERS Sodium Chloride 10 ml 05/03/17 14:00 05/06/17 08:49 Normal Saline Flush 0.9% IVP 10 ml Q8HR ALLAN Administration Insulin Glargine,Hum.rec.anlog [Lantus Solostar] 40 unit SUBQ QPM 11/12/12 Aspirin Chewable [[facility] Aspirin] 81 mg PO DAILY 05/03/17 Atorvastatin Calcium 80 mg PO QPM 05/03/17 Carvedilol 3.125 mg PO BID 05/03/17 Clopidogrel [Plavix] 75 mg PO QPM 05/03/17 Gabapentin 100 mg PO QPM 05/03/17 Hydroxychloroquine [Plaquenil] 200 mg PO BID 05/03/17 Isosorbide Mononitrate [Isosorbide Mononitrate ER] 30 mg PO DAILY 05/03/17 Losartan Potassium 12.5 mg PO QPM 05/03/17 Objective - Vital Signs/Intake & Output Reviewed Vital Signs: Yes Vital Signs: Vital Signs x48h Temp Pulse Resp BP Pulse Ox 05/06/17 15:50 77 16 140/72 H 99 05/06/17 13:00 36.5 C 50 L 16 139/52 H 93 Intake & Output: Intake & Output 05/03/17 05/04/17 05/05/17 05/06/17 23:59 23:59 23:59 23:59 Intake Total 885 2400 1370 1170 Output Total 250 1000 Balance 885 2400 1120 170 - Objective General Appearance: positive: Alert, Moderate distress Eyes Bilateral: positive: Normal inspection ENT: positive: ENT inspection nml, Pharynx nml, Dry mucous membranes Neck: positive: Nml inspection, Thyroid nml, No JVD, Trachea midline Respiratory: positive: Chest non-tender, No respiratory distress, Breath sounds nml Cardiovascular: positive: Regular rate & rhythm, Systolic murmur Abdomen: positive: Tenderness, Guarding, Hepatomegaly, Splenomegaly Back: positive: Nml inspection, CVA tenderness (L) Skin: positive: Color nml, No rash, Warm, Dry, Pallor Extremities: positive: Non-tender, Full ROM, Nml appearance, No pedal edema Neurologic/Psychiatric: positive: Oriented x3, CN's nml (2-12), Motor nml, Mood/ affect nml, Weakness, Sensory loss Reflexes: Bicep (R): 2+, Bicep (L): 2+ - Lab Results Fish Bones: 05/05/17 13:00 05/05/17 13:00 Other Labs: Lab Results x24hrs 05/06/17 05/06/17 05/06/17 Range/Units 16:34 14:52 11:31 POC Whole Bld Glucose 94 84 122 H (70 - 100) mg/dL 05/06/17 05/06/17 05/06/17 Range/Units 07:46 03:34 01:02 POC Whole Bld Glucose 157 H 108 H 146 H (70 - 100) mg/dL 05/05/17 Range/Units 21:07 POC Whole Bld Glucose 138 H (70 - 100) mg/dL - Diagnostic Imaging Diagnostic Imaging Results: positive: Prelim report reviewed, Final report reviewed Diagnostic Imaging Comments: Abdominal CT with oral and IV contrast: Ordered due to ongoing unresolved left flank pain. No new findings. Stable hernia noted in anterior abdominal wall that measures 7 cm. This is stable and non-obstructing and was also seen on a 2015 CT. Assessment/Plan - Problem List (1) Left flank pain Impression: CT abdomen with oral contrast ordered due to ongoing unresolved left flank pain. No new findings. Stable hernia noted in anterior abdominal wall that measures 7 cm. This is stable and non-obstructing and was also seen on a 2015 CT. Suspected pain due to pyelonephritis. Plan: Continue current IV antibiotics. Use lidocaine patches and tylenol for pain control. Pyridium prescribed for mild dysuria and can be continued at home. (2) Pyelonephritis Impression: Patient came to the ED originally for left flank pain with dysuria and was prescribed IV antibiotics. She has a history of previous illnesses. Plan: We continue to treat with IV antibiotic. Urine cultures with no growth, squamous cells, contaminated. (3) CAD S/P percutaneous coronary angioplasty Impression: Patient most recently had 2 stents in December 2016 and is followed by cardiology. She also has a history of CABG in 2006. Plan: Continue outpatient cardiac rehab. Take all medications as prescribed. (4) Blindness of both eyes Impression: Patient began to loose her sight at the age of 28 years, and has been steadily progressing to full blindness. 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 Plan: Patient makes great accommodations for this disability such as having a blood glucose at home that says the values out loud. Avoid sun light. (5) Diabetes mellitus type 2, controlled Impression: Blood sugars have now been more stabilized and running between 105-131 for the past 24 hours. There have no more noted hypoglycemia. Plan: Continue POC bedside monitoring and insulin. Patient continues to have a good appetite. (6) Constipation Impression: This has been chronic for her and she feels that it is neuropathy related. Concern for constipation being the culprit for her left flank pain. Plan: continue laxative routine and regular bowel program with ambulation.
[2017-05-06] MEDS: LOSARTAN 50 MG TABLET PO SCH (20:16)
[2017-05-06] MEDS: LIDOCAINE PATCH 5% TOP PRN (20:22)
[2017-05-06] MEDS: CLOPIDOGREL 75 MG TABLET PO SCH (20:23)
[2017-05-06] MEDS: ATORVASTATIN 40 MG TABLET PO SCH (20:23)
[2017-05-06] MEDS: GABAPENTIN 100 MG CAPSULE PO SCH (20:23)
[2017-05-06] MEDS: INSULIN GLARGINE 300 UNIT/3 ML PEN SUBQ SCH (21:47)
[2017-05-07] MEDS: ACETAMINOPHEN 325 MG TABLET PO PRN (06:03)
[2017-05-07] MEDS: SODIUM CHLORIDE FLUSH 0.9% 10 ML SYRINGE IVP SCH (06:04)
[2017-05-07] MEDS: INSULIN ASPART 300 UNIT/3 ML PEN SUBQ SCH ×2 (07:44→11:54)
[2017-05-07] MEDS: PHENAZOPYRIDINE 100 MG TABLET PO SCH ×2 (08:15→11:54)
[2017-05-07] MEDS: ASPIRIN CHEW 81 MG TABLET PO SCH (08:15)
[2017-05-07] MEDS: ISOSORBIDE MONONITRATE ER 30 MG TABLET PO SCH (08:15)
[2017-05-07] MEDS: POLYETHYLENE GLYCOL 3350 17 GM PACKET PO SCH (08:15)
[2017-05-07] MEDS: CARVEDILOL 3.125 MG TABLET PO SCH (08:15)
[2017-05-07] MEDS: ENOXAPARIN 40 MG/0.4 ML SYRINGE SUBQ SCH (08:15)
[2017-05-07] MEDS: oxyCODONE 5 MG TABLET PO PRN (08:56)
--- NOTE | 2017-05-07 11:45 | Discharge Plan ---
Discharge Plan Disposition: Home, Self Care Condition: Stable Prescriptions: oxyCODONE [Roxicodone] 5 mg PO Q4HR PRN #18 tablet PRN Reason: Pain 5 to 7 Sulfamethoxazole/Trimethoprim [Bactrim 400-80 mg Tablet] 1 each PO BID #10 tablet Diet: Diabetic Activity Restrictions: Activity as Tolerated Shower Restrictions: No Driving Restrictions: Yes Assistance Devices: Walker Additional Instructions or Follow Up instructions: may follow up PCP in one week, may follow up urologist in one month. Follow-Up Care: [facility] - Cardiac, [facility] - [facility], [facility] - Diabetes Ed No Smoking: If you smoke, Please STOP! Call for help. Follow-up with: Bruce Plasencia MD [Provider Admit Priv/Credential] -
[2017-05-07] MEDS: cefTRIAXone 1 GM in SODIUM CHLORIDE 0.9% MINIBAG 100 ML IV SCH ×2 (11:53→12:00)
--- NOTE | 2017-05-07 12:00 | DISCHARGE SUMMARY ---
Discharge Summary Admit Date: 05/03/17 Discharge Date: 05/07/17 Discharging Provider: CALABRESE Primary Care Provider: Dr. Bruce Plasencia Condition at Discharge: Stable Discharge Disposition: 01 Home, Self Care Discharge Facility Name: home - DIAGNOSES Admission Diagnoses: (1) Pyelonephritis (2) Left flank pain (3) CAD S/P percutaneous coronary angioplasty (4) Blindness of both eyes (5) Diabetes mellitus type 2, controlled (6) Hypoglycemia (7) Constipation Discharge Diagnoses with Status of Each Condition: (1) Pyelonephritis pt refuse to have blood workup and request to be D/C to home. Stable, denies dysuria, hematuria continue to finish antibiotics course (2) Left flank pain CT of abdomen twice indicate no SBO, no obstruction of urinary trace. pain is better than before, pain management refer to PCP (3) CAD S/P percutaneous coronary angioplasty stable (4) Blindness of both eyes stable (5) Diabetes mellitus type 2, controlled reduced Lantus to 30 unit daily since pt has episode of hypoglycemia (6) Hypoglycemia resolved after reduced night lantus dosage (7) Constipation resolved, pt had twice bowel movements on yesterday, pt state she did not have more. - HPI History of Present Illness: please refer from Ms. 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 She will be admitted as inpatient to the hospital service for further pneumonia work up, IVF, labs, cardiac/syncope work up for at least 2 midnights. - HOSPITAL COURSE Hospital Course: pt was admitted for left flank pain and UA indicated UTI. Pt was treated rocephin. twice CT of abdomen reveals no obstruction of SBO and urinary trace. Pt state her pain is better control. pt is advised to finish antibiotics course. pt is advised to follow up PCP in one week ,and urologist in one month. - ALLERGIES Allergies/Adverse Reactions: Allergies Allergy/AdvReac Type Severity Reaction Status Date / Time Penicillins Allergy Unknown unknown Verified 05/03/17 08:53 lisinopril Allergy Unknown Verified 05/03/17 08:53 metformin Allergy Emesis Verified 05/03/17 08:53 hydromorphone [From Dilaudid] AdvReac Itching Verified 05/03/17 18:14 - MEDICATIONS Home Medications: Ambulatory Orders Medication Instructions Recorded Confirmed Aspirin Chewable [[facility] Eleazar 81 mg PO DAILY 05/03/17 05/03/17 Aspirin] Atorvastatin Calcium 80 mg PO QPM 05/03/17 05/03/17 Carvedilol 3.125 mg PO BID 05/03/17 05/03/17 Clopidogrel [Plavix] 75 mg PO QPM 05/03/17 05/03/17 Gabapentin 100 mg PO QPM 05/03/17 05/03/17 Hydroxychloroquine [Plaquenil] 200 mg PO BID 05/03/17 05/03/17 Isosorbide Mononitrate [Isosorbide 30 mg PO DAILY 05/03/17 05/03/17 Mononitrate ER] Losartan Potassium 12.5 mg PO QPM 05/03/17 05/03/17 Insulin Glargine [Lantus Solostar] 30 unit SUBQ QPM pen 05/07/17 Sulfamethoxazole/Trimethoprim 1 each PO BID #10 tablet 05/07/17 [Bactrim 400-80 mg Tablet] oxyCODONE [Roxicodone] 5 mg PO Q4HR PRN #18 tablet 05/07/17 - PHYSICAL EXAM AT DISCHARGE General Appearance: positive: No acute distress, Alert. negative: Lethargic Eyes Bilateral: positive: Normal inspection, PERRL, No lid inflammation, Conjunctivae nml ENT: positive: ENT inspection nml, Pharynx nml, No signs of dehydration. negative: Purulent nasal drainage, Pharyngeal erythema, Oral lesions, Dry mucous membranes Neck: positive: Nml inspection, Thyroid nml, Trachea midline. negative: Thyromegaly, Lymphadenopathy (R), Lymphadenopathy (L), Stiff neck, Carotid bruit , Swelling/bruising, Tracheal deviation Respiratory: positive: Chest non-tender, No respiratory distress, Breath sounds nml. negative: Wheezes, Rales, Rhonchi Cardiovascular: positive: Regular rate & rhythm, No murmur, No gallop. negative : Irregularly irregular, Extrasystoles, Tachycardia, Bradycardia, Systolic murmur, Diastolic murmur Peripheral Pulses: positive: 2+ Abdomen: positive: Non-tender, Nml bowel sounds, No distention. negative: Tenderness, Guarding, Rebound Back: positive: Nml inspection. negative: CVA tenderness (R), CVA tenderness (L ) Skin: positive: Color nml, No rash, Warm, Dry. negative: Cyanosis, Diaphoresis , Pallor, Skin rash Extremities: positive: Non-tender, Full ROM, Nml appearance. negative: Calf tenderness, Joint swelling, Fauzia's sign/cords Neurologic/Psychiatric: positive: Oriented x3, Motor nml, Sensation nml, Mood/ affect nml. negative: Sensory loss, Facial droop, Slurred/abnml speech, Depressed mood/affect - LABS Result Diagrams: 05/05/17 13:00 05/05/17 13:00 - FOLLOW UP Follow Up: pt is advised to follow up PCP in one week, and follow up urologist in one month. Pt is advised to finish antibiotics for UTI, and Pt's Lantus is reduced to 30 unit per night.
[2017-05-07 12:43] VITALS: BP 139/64
[2017-05-07] MEDS ORDERED: SULFAMETH/TRIMETH DS 800/160 MG TABLET PO SCH (13:00)
== END 2017-05-07 13:45 | disposition home or self-care (01) | DRG 690 ==
LOC: ED 08:47 → MS2 13:47
PROVIDERS: ADMIT Nurse Practitioner; ATTEND Nurse Practitioner Gerontology
DX: N12 Tubulo-interstitial nephritis, not specified as acute or chronic (principal); E11.649 Type 2 diabetes mellitus with hypoglycemia without coma; Z79.4 Long term (current) use of insulin; R10.9 Unspecified abdominal pain; H35.30 Unspecified macular degeneration; H54.3 Unqualified visual loss, both eyes; K59.09 Other constipation; R32 Unspecified urinary incontinence; I25.10 Atherosclerotic heart disease of native coronary artery without angina pectoris; Z95.5 Presence of coronary angioplasty implant and graft; Z79.82 Long term (current) use of aspirin; Z79.02 Long term (current) use of antithrombotics/antiplatelets; I25.2 Old myocardial infarction; Z79.899 Other long term (current) drug therapy; Z85.3 Personal history of malignant neoplasm of breast; Z90.13 Acquired absence of bilateral breasts and nipples; Z90.79 Acquired absence of other genital organ(s); Z97.8 Presence of other specified devices; Z95.1 Presence of aortocoronary bypass graft; K57.30 Diverticulosis of large intestine without perforation or abscess without bleeding
CPT/HCPCS: 36415; 51701; 74177; 74178; 80048; 80053; 81001; 81003; 83036; 83605; 83690; 83735; 84100; 85025; 87086; 96361; 96365; 96367; 96375; 96376; 99284

== ENCOUNTER 2017-05-09 09:06 | Outpatient (CLI) | payer MEDICARE, OTHER, MEDICAID ==
[2017-05-09 10:04] LABS: BUN - BLOOD UREA NITROGEN 17 mg/dL (6-20); CALCIUM 9.1 mg/dL (8.5-10.3); CARBON DIOXIDE - CO2 22 mmol/L (21-32); CHLORIDE 102 mmol/L (101-111); CHOL/HDL RATIO 2.7 (<4.4); CHOLESTEROL 102 mg/dL; CREATININE 1.4 mg/dL (0.4-1.0); GFR - MDRD 36 (>89); GLUCOSE 88 mg/dL (70-100); HDL CHOLESTEROL 38 mg/dL; LDL/HDL RATIO 1.1 (<4.4); SODIUM 137 mmol/L (135-145); TRIGLYCERIDES 113 mg/dL; VLDL CHOLESTEROL 23 mg/dL
== END 2017-05-09 09:07 | disposition home or self-care (01) ==
LOC: LAB 09:06
PROVIDERS: ATTEND Internal Medicine Interventional Cardiology
DX: I21.19 ST elevation (STEMI) myocardial infarction involving other coronary artery of inferior wall (principal); Z95.5 Presence of coronary angioplasty implant and graft; Z95.1 Presence of aortocoronary bypass graft; I10 Essential (primary) hypertension; E11.42 Type 2 diabetes mellitus with diabetic polyneuropathy; Z79.4 Long term (current) use of insulin
CPT/HCPCS: 36415; 80048; 80061

== ENCOUNTER 2017-05-18 09:37 | Outpatient (CLI) | payer MEDICARE, OTHER, MEDICAID ==
[2017-05-18] MEDS ORDERED: IOPAMIDOL-300 50 ML VIAL ONE (10:22)
[2017-05-18] MEDS ORDERED: IOPAMIDOL-300 50 ML VIAL PO ONE (11:31)
--- NOTE | 2017-05-19 00:07 | CT Report ---
EXAM: CT ABDOMEN AND PELVIS EXAM DATE: 05/18/2017 11:26 AM. CLINICAL HISTORY: Left flank pain COMPARISONS: CT IVP 05/06/2017. TECHNIQUE: Routine helical CT imaging was performed through the abdomen and pelvis. IV contrast: 50ML OF ISOVUE 300. Enteric contrast: No. Reconstructions: Coronal and sagittal. In accordance with CT protocol optimization, one or more of the following dose reduction techniques w ere utilized for this exam: automated exposure control, adjustment of mA and/or KV based on patient s ize, or use of iterative reconstructive technique. FINDINGS: Lung Bases: Postoperative changes of prior CABG. Liver: Unremarkable noncontrast appearance. Gallbladder/Bile Ducts: Cholelithiasis, as before. No gallbladder distention or pericholecystic fat s tranding to suggest acute cholecystitis. No biliary ductal dilatation. Spleen: Normal size. No contour deforming mass. Pancreas: No contour deforming mass or ductal dilatation. Adrenal Glands: Normal. Kidneys and Ureters: Tiny intrarenal vascular calcifications in the bilateral upper poles. No convinc ing stones. No hydronephrosis or hydroureter. Peritoneal Cavity/Bowel: Colonic diverticulosis, hepatic flexure through sigmoid colon. No evident fo arely colon wall thickening or adjacent mesenteric fat stranding to suggest acute diverticulitis. No ev idence for bowel obstruction. The appendix is normal. No free fluid, pneumoperitoneum, or cherelle adeno albert. Pelvic Organs: Post hysterectomy. The bladder is within normal limits. Vasculature: Extensive atherosclerotic calcifications within the aorta and its branches. No aneurysm. Bones: Mild levoscoliosis centered at L4. Lower thoracic spine DISH. Advanced multilevel degenerative disk disease in the mid/lower lumbar spine with partial ankylosis of the L3 and L4 vertebral bodies. 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 No acute bony abnormality. Other: Unchanged lower anterior abdominal wall hernia containing fat and a loop of small bowel. IMPRESSION: 1. Within the limits of noncontrast examination, no acute process identified to explain left flank pa in. 2. Colonic diverticulosis without noncontrast CT evidence of acute diverticulitis. 3. Lower anterior abdominal wall hernia containing fat and a loop of small bowel, without evidence fo r associated bowel obstruction. 4. Cholelithiasis. [facility] Referring Provider Line: [phone] SITE ID: [id number]
== END 2017-05-18 09:38 | disposition home or self-care (01) ==
LOC: DI 09:37
PROVIDERS: ATTEND Surgery
DX: R10.9 Unspecified abdominal pain (principal); K57.30 Diverticulosis of large intestine without perforation or abscess without bleeding; K43.9 Ventral hernia without obstruction or gangrene; K80.20 Calculus of gallbladder without cholecystitis without obstruction
CPT/HCPCS: 74176; Q9967

== ENCOUNTER 2017-05-27 14:12 | Outpatient (CLI) | payer MEDICARE, OTHER, MEDICAID | END 2017-05-27 14:13 | disposition home or self-care (01) | LOC: LAB 14:12 | PROVIDERS: ATTEND Internal Medicine Cardiovascular Disease | DX: I47.2 Ventricular tachycardia (principal); I10 Essential (primary) hypertension; I49.3 Ventricular premature depolarization | CPT/HCPCS: 36415; 83735; 84443 ==

== ENCOUNTER 2017-08-01 11:02 | Outpatient (CLI) | payer MEDICARE, OTHER, MEDICAID | END 2017-08-01 11:03 | disposition home or self-care (01) | LOC: NS 11:02 | PROVIDERS: ATTEND Internal Medicine | DX: Z71.3 Dietary counseling and surveillance (principal); E11.49 Type 2 diabetes mellitus with other diabetic neurological complication; Z79.4 Long term (current) use of insulin; Z68.31 Body mass index [BMI] 31.0-31.9, adult | CPT/HCPCS: 97802 ==

== ENCOUNTER 2017-09-03 15:52 | Outpatient (CLI) | payer MEDICARE, OTHER, MEDICAID ==
--- NOTE | 2017-09-03 17:33 | XRAY Report ---
TWO VIEW CHEST: 09/03/2017 COMPARISON: Chest CT 04/24/2010. INDICATION: Fever and cough. TECHNIQUE: Two views. FINDINGS: ICD and sternotomy are noted. There is a right mid lung pulmonary nodule. On the previous CT of 2009, it measured 1.8 cm. It now measures 2.2 cm. No other focal pulmonary abnormalities are seen. No pneumothorax or pleural effusion. Stable cardiomegaly. There is a subtle right lower lung infiltrate. IMPRESSION: RIGHT PULMONARY NODULE HAS INCREASED IN SIZE 2.2 CM, PREVIOUSLY 1.8 CM. THIS REMAINS NONSPECIFIC, BUT FURTHER WORKUP IS AVAILABLE. RIGHT LOWER LUNG INFILTRATE IS CONCERNING FOR PNEUMONIA IN THE CORRECT CLINICAL SETTING. TD: 09/03/2017 17:32 CLAUDIA
== END 2017-09-03 15:53 | disposition home or self-care (01) ==
LOC: DI 15:52
PROVIDERS: ATTEND Nurse Practitioner Primary Care
DX: R91.1 Solitary pulmonary nodule (principal); R91.8 Other nonspecific abnormal finding of lung field
CPT/HCPCS: 71046

== ENCOUNTER 2018-01-13 13:43 | Outpatient (CLI) | payer MEDICARE, OTHER, MEDICAID ==
[2018-01-13 19:06] LABS: HEMOGLOBIN A1C % 8.3 % (4.6-6.2)
== END 2018-01-13 13:44 | disposition home or self-care (01) ==
LOC: LAB.R 13:43
PROVIDERS: ATTEND Internal Medicine
DX: E11.49 Type 2 diabetes mellitus with other diabetic neurological complication (principal); I47.2 Ventricular tachycardia; I49.3 Ventricular premature depolarization; I10 Essential (primary) hypertension
CPT/HCPCS: 83036; 84443

== ENCOUNTER 2018-05-07 14:05 | Outpatient (CLI) | payer MEDICARE, OTHER, MEDICAID ==
[2018-05-07 19:52] LABS: HB2 TOTAL 15.1 g/dL; HEMOGLOBIN A1C 0.89 g/dL; HEMOGLOBIN A1C % 7.5 % (4.6-6.2)
== END 2018-05-07 14:06 ==
LOC: LAB.R 14:05
PROVIDERS: ATTEND Internal Medicine
DX: E11.49 Type 2 diabetes mellitus with other diabetic neurological complication (principal)
CPT/HCPCS: 83036

== ENCOUNTER 2018-06-11 11:54 | Outpatient (CLI) | payer MEDICARE, OTHER, MEDICAID | END 2018-06-11 11:55 | disposition EMS.NT | LOC: EMS 11:54 | PROVIDERS: ATTEND Surgery | DX: T17.920A Food in respiratory tract, part unspecified causing asphyxiation, initial encounter (principal) ==

== ENCOUNTER 2018-08-08 13:28 | Outpatient (CLI) | payer MEDICARE, OTHER, MEDICAID ==
[2018-08-08 13:54] LABS: CALCIUM 9.1 mg/dL (8.5-10.3); CREATININE 1.1 mg/dL (0.4-1.0)
== END 2018-08-08 13:29 | disposition home or self-care (01) ==
LOC: LAB 13:28
PROVIDERS: ATTEND Internal Medicine Cardiovascular Disease
DX: I10 Essential (primary) hypertension (principal); E78.5 Hyperlipidemia, unspecified
CPT/HCPCS: 36415; 80048

== ENCOUNTER 2018-08-27 13:06 | Outpatient (CLI) | payer MEDICARE, OTHER, MEDICAID ==
--- NOTE | 2018-08-27 15:13 | XRAY Report ---
Reason: OTHER DYSPHAGIA,HOARSENESS,RESPIRATORY OBSTRUCTION Procedure Date: 08/27/2018 Accession Number: [id number] / [id number] Procedure: FL - Modified Barium Swallow W/SP CPT Code: FULL RESULT: EXAM: MODIFIED BARIUM SWALLOW EXAM DATE: 08/27/2018 01:37 PM. CLINICAL HISTORY: Other dysphagia, hoarseness, respiratory obstruction. COMPARISON: None. TECHNIQUE: Under the direction of speech pathology, patient swallowed various consistencies of barium under lateral fluoroscopic observation of the neck. Fluoroscopy Time: 40 seconds. Number of Images: 31. FINDINGS: Swallowing Mechanism: Normal oral phase and swallowing reflex. Airway Protection: Normal epiglottic motion. No episodes of tracheal penetration or aspiration with all consistencies of barium. Pharynx: Normal. No significant vallecular or piriform sinus contrast pooling. Other: None. IMPRESSION: Normal modified barium swallow. No aspiration identified. [facility]
== END 2018-08-27 13:07 | disposition home or self-care (01) ==
LOC: DI 13:06
PROVIDERS: ATTEND Otolaryngology
DX: R13.19 Other dysphagia (principal); R49.0 Dysphonia; J98.8 Other specified respiratory disorders; R68.2 Dry mouth, unspecified
CPT/HCPCS: 74230

== ENCOUNTER 2018-12-10 08:46 | Outpatient (CLI) | payer MEDICARE, OTHER, MEDICAID ==
[2018-12-10 09:10] LABS: BASOPHILS % (AUTO) 0.9 %; EOSINOPHILS # (AUTO) 0.2 10^3/uL (0.0-0.7); HGB - HEMOGLOBIN 13.3 g/dL (12.0-16.0); LYMPHOCYTES # (AUTO) 1.5 10^3/uL (1.5-3.5); LYMPHOCYTES % (AUTO) 32.8 %; MEAN CORPUSCULAR HGB CONC 30.4 g/dL (32.0-36.0); MEAN CORPUSCULAR VOLUME 95.2 fL (81.0-99.0); MEAN PLATELET VOLUME 10.2 fL (7.9-10.8); MONOCYTES # (AUTO) 0.5 10^3/uL (0.0-1.0); MONOCYTES % (AUTO) 11.9 %; NEUTROPHILS # (AUTO) 2.3 10^3/uL (1.5-6.6); NEUTROPHILS % (AUTO) 50.2 %; PLT - PLATELET COUNT 132 10^3/uL (130-450); RED BLOOD COUNT 4.59 10^6/uL (4.20-5.40); RED CELL DISTRIBUTION WIDTH 12.7 % (12.0-15.0); WHITE BLOOD COUNT 4.5 x10^3/uL (4.8-10.8)
[2018-12-10 09:17] LABS: CALCIUM 9.3 mg/dL (8.5-10.3)
[2018-12-10 09:23] LABS: HB2 TOTAL 14.7 g/dL; HEMOGLOBIN A1C 0.84 g/dL; HEMOGLOBIN A1C % 7.4 % (4.6-6.2)
[2018-12-10 09:38] LABS: THYROID STIMULATING HORMONE 2.78 uIU/mL (0.34-5.60)
[2018-12-10 09:40] LABS: FREE T4 (FREE THYROXINE) 0.93 ng/dL (0.58-1.64)
== END 2018-12-10 08:47 | disposition home or self-care (01) ==
LOC: LAB 08:46
PROVIDERS: ATTEND Family Medicine
DX: E11.22 Type 2 diabetes mellitus with diabetic chronic kidney disease (principal); N18.9 Chronic kidney disease, unspecified; M06.9 Rheumatoid arthritis, unspecified; E11.42 Type 2 diabetes mellitus with diabetic polyneuropathy
CPT/HCPCS: 36415; 80048; 83036; 84439; 84443; 84481; 85025

== ENCOUNTER 2019-03-04 23:06 | Outpatient (CLI) | payer MEDICARE, OTHER, MEDICAID | END 2019-03-04 23:07 | disposition critical access hospital (66) | LOC: EMS 23:06 | PROVIDERS: ATTEND Surgery | DX: R68.84 Jaw pain (principal) | CPT/HCPCS: A0425; A0429 ==

== ENCOUNTER 2019-03-04 23:09 | Emergency (ER) | payer MEDICARE, OTHER, MEDICAID ==
--- NOTE | 2019-03-04 23:35 | ED Physician Documentation ---
PD HPI HEENT - Stated complaint Stated Complaint: JAW PAIN - Chief complaint Chief Complaint: Cardiac - History obtained from History obtained from: Patient - History of Present Illness Timing - onset: How many hours ago (few), How many weeks ago (Has noticed some pain around the left ear and a little bit on the right ear and down by the side of the neck intermittently for about a week and it seems worse the last day. She also noticed some pressure feeling in her chest a couple of hours ago.) Timing - details: Gradual onset, Waxing and waning Location: Left ear, Other (side of neck and submandibular area pain with some tenderness around left ear and behind ear.) Worsens: No: Swalllowing Associated symptoms: Congestion, Swollen nodes (left side of neck). No: Fever, Headache, Cough Similar symptoms before: Has not had sx before Recently seen: Not recently seen Review of Systems Constitutional: denies: Fever, Chills, Myalgias Eyes: reports: Loss of vision (chronic, legally blind) Nose: reports: Congestion. denies: Rhinorrhea / runny nose, Sinus pressure / pain Throat: denies: Sore throat Cardiac: reports: Chest pain / pressure. denies: Palpitations, Pedal edema, Calf pain Respiratory: denies: Cough GI: denies: Abdominal Pain, Nausea, Vomiting Skin: denies: Abrasion (s), Laceration (s) Musculoskeletal: reports: Neck pain (left side of neck and around the ear). denies: Back pain Neurologic: denies: Focal weakness, Numbness PD PAST MEDICAL HISTORY - Past Medical History Past Medical History: Yes Cardiovascular: [place] Respiratory: None Endocrine/Autoimmune: Type 2 diabetes GI: Diverticulitis TERMITE CONTROL REPRESENTATIVE: Breast cancer, Other : Incontinence, Kidney stones HEENT: Chronic vision loss, Macular degeneration Psych: Anxiety Musculoskeletal: None Derm: None - Past Surgical History Past Surgical History: Yes General: Other /TERMITE CONTROL REPRESENTATIVE: Hysterectomy, Oophrectomy, Mastectomy, Breast implants Cardiovascular: CABG, Coronary stent, AICD - Present Medications Home Medications: Ambulatory Orders Medication Instructions Recorded Confirmed Aspirin Chewable [St Eleazar 81 mg PO DAILY 05/03/17 01/15/19 Aspirin] Atorvastatin Calcium 80 mg PO QPM 05/03/17 01/15/19 Carvedilol 3.125 mg PO BID 05/03/17 01/15/19 Isosorbide Mononitrate [Isosorbide 15 mg PO DAILY 05/03/17 01/15/19 Mononitrate ER] Losartan Potassium 25 mg PO QPM 05/03/17 01/15/19 Insulin Glargine [Lantus Solostar] 27 unit SUBQ QPM 06/20/17 01/16/19 Oxybutynin Chloride [Ditropan Xl] 5 mg PO DAILY 06/20/17 01/15/19 Polyethylene Glycol 3350 [Miralax] 1 tsp PO DAILY 06/20/17 01/15/19 Insulin Lispro [Humalog Kwikpen] 3 unit SQ TIDWM 07/26/17 01/15/19 Acetaminophen [Tylenol Extra 1,000 mg PO QPM 01/15/19 01/15/19 Strength] Cyclosporine [Restasis] 1 each OP DAILY 01/15/19 01/15/19 Naproxen Sodium [Aleve] 220 mg PO TID 01/15/19 01/15/19 [place]-3/Dha/Epa/Fish Oil [[place] 3 1 each PO DAILY 01/15/19 01/15/19 500 Softgel] Polyethylene Glycol 3350 [Miralax] 17 gm PO DAILY 01/15/19 01/15/19 Cephalexin [Keflex] 500 mg PO TID #21 capsule 03/05/19 Naproxen 375 mg PO BID #20 tablet 03/05/19 - Allergies Allergies/Adverse Reactions: Allergies Allergy/AdvReac Type Severity Reaction Status Date / Time hydromorphone [From Dilaudid] Allergy Severe Itching Verified 03/04/19 23:20 Penicillins Allergy Severe Rash Verified 03/04/19 23:20 lisinopril AdvReac Severe cough Verified 03/04/19 23:20 metformin AdvReac Severe Emesis Verified 03/04/19 23:20 - Social History Does the pt smoke?: No Smoking Status: Never smoker Does the pt drink ETOH?: No Does the pt have substance abuse?: No - Immunizations Immunizations are current?: Yes - POLST Patient has POLST: Yes PD ED PE NORMAL - Vitals Vital signs reviewed: Yes - General General: Alert and oriented X 3, No acute distress, Well developed/nourished - HEENT HEENT: Moist mucous membranes, Pharynx benign. No: Ears normal (right is okay. Left TM is normal. The outer part of the canal and the outer ear/pinna have redness and swelling. No distortion of the cartilage shape.) - Neck Neck: Supple, no meningeal sign, Other (left anterior and postauricular nodes, mildly tender. ) - Cardiac Cardiac: RRR, No murmur - Respiratory Respiratory: Clear bilaterally, Other (no chestwall tenderness. ) - Abdomen Abdomen: Soft, Non tender - Derm Derm: Normal color, Warm and dry - Extremities Extremities: No tenderness to palpate, Normal ROM s pain, No edema, No calf tenderness / cord - Neuro Neuro: Alert and oriented X 3, metal melter 2-12 intact (ecept for vision), No motor deficit, Normal speech Results - Vitals Vitals: Vital Signs - 24 hr 03/04/19 03/04/19 03/05/19 23:09 23:15 00:12 Temperature 36.7 C Heart Rate 67 61 58 L Respiratory 18 18 Rate Blood Pressure 183/90 H 127/65 O2 Saturation 97 99 95 03/05/19 01:20 Temperature Heart Rate 50 L Respiratory 16 Rate Blood Pressure 143/66 H O2 Saturation 96 Oxygen O2 Source Room air - EKG (time done) 23:13 Rate: Rate (enter#) (57) Rhythm: Sinus bradycardia, Paced (intermittently vent paced, with atrial sensed NSR. ) QRS: Poor R wave progression Ischemia: No: ST elevation c/w ischemia, ST depression - Labs Labs: Laboratory Tests 03/05/19 03/05/19 03/05/19 00:10 00:10 00:10 WBC 5.4 RBC 4.26 Hgb 12.6 Hct 39.3 MCV 92.3 MCH 29.6 MCHC 32.1 RDW 13.2 Plt Count 118 L MPV 10.4 Neut # (Auto) 2.9 Lymph # (Auto) 1.7 [place] # (Auto) 0.6 Eos # (Auto) 0.2 Baso # (Auto) 0.0 Absolute Nucleated RBC 0.00 Nucleated RBC % 0.0 Sodium 141 Potassium 4.1 Chloride 109 Carbon Dioxide 24 Anion Gap 8.0 BUN 28 H Creatinine 1.1 H Estimated GFR (MDRD) 48 L Glucose 163 H Calcium 9.1 Magnesium 2.0 Total Bilirubin 0.8 AST 24 ALT 17 Alkaline Phosphatase 76 Troponin I High Sens 15.8 H* B-Natriuretic Peptide Total Protein 6.9 Albumin 3.7 Globulin 3.2 Albumin/Globulin Ratio 1.2 Lipase 27 Urine Color Urine Clarity Urine pH Ur Specific [place] Urine Protein Urine Glucose (UA) Urine Ketones Urine Occult Blood Urine Nitrite Urine Bilirubin Urine Urobilinogen Ur Leukocyte Esterase Urine RBC Urine WBC Ur Squamous Epith Cells Urine Bacteria Ur Microscopic Review Urine Culture Comments 03/05/19 03/05/19 00:10 00:20 WBC RBC Hgb Hct MCV MCH MCHC RDW Plt Count MPV Neut # (Auto) Lymph # (Auto) [place] # (Auto) Eos # (Auto) Baso # (Auto) Absolute Nucleated RBC Nucleated RBC % Sodium Potassium Chloride Carbon Dioxide Anion Gap BUN Creatinine Estimated GFR (MDRD) Glucose Calcium Magnesium Total Bilirubin AST ALT Alkaline Phosphatase Troponin I High Sens B-Natriuretic Peptide 225 H Total Protein Albumin Globulin Albumin/Globulin Ratio Lipase Urine Color YELLOW Urine Clarity CLEAR Urine pH 6.0 Ur Specific [place] <=1.005 Urine Protein NEGATIVE Urine Glucose (UA) NEGATIVE Urine Ketones NEGATIVE Urine Occult Blood NEGATIVE Urine Nitrite NEGATIVE Urine Bilirubin NEGATIVE Urine Urobilinogen 0.2 (NORMAL) Ur Leukocyte Esterase TRACE H Urine RBC 0-5 Urine WBC 4-5 Ur Squamous Epith Cells MOD Squamous H Urine Bacteria Rare Ur Microscopic Review INDICATED Urine Culture Comments NOT INDICATED PD MEDICAL DECISION MAKING - ED course Complexity details: considered differential (There is cellulitic changes of the outer ear on left. Some mild cervical adenopathy. No signs of heart problem on ECG/Trop. ), d/w patient Departure - Departure Disposition: 01 Home, Self Care Clinical Impression: Acute facial pain Cellulitis of external ear Qualifiers: Laterality: left Qualified Code(s): H60.12 - Cellulitis of left external ear Condition: Stable Record reviewed to determine appropriate education?: Yes Instructions: ED Cellulitis Facial Prescriptions: Cephalexin [Keflex] 500 mg PO TID #21 capsule Naproxen 375 mg PO BID #20 tablet Comments: Cephalexin 500 mg 3 times a day for a week. This is for the infection of the skin of the left ear. There may also be some infection in the middle ear and sinuses causing some of the other pains you are having around the ears and jaw. Naproxen anti-inflammatory twice daily for 7 to 10 days with food. Continue your Tylenol 3 times a day if needed for pains as well. Stay well-hydrated. Recheck if not improving on your ear pain and generally not feeling well over the next several days. Return if worsening. Your heart rhythm is showing good function of the pacemaker and your EKG along with your blood test did not show any signs of heart failure or heart attack. Discharge Date/Time: 03/05/19 01:47
[2019-03-05] MEDS ORDERED: cephALEXin 250 MG CAPSULE PO STA (00:04)
[2019-03-05] MEDS ORDERED: ACETAMINOPHEN 325 MG TABLET PO STA (00:05)
[2019-03-05] MEDS ORDERED: NAPROXEN 250 MG TABLET PO STA (00:05)
[2019-03-05 00:21] LABS: BASOPHILS % (AUTO) 0.6 %; EOSINOPHILS # (AUTO) 0.2 10^3/uL (0.0-0.7); EOSINOPHILS % (AUTO) 3.5 %; HGB - HEMOGLOBIN 12.6 g/dL (12.0-16.0); LYMPHOCYTES # (AUTO) 1.7 10^3/uL (1.5-3.5); LYMPHOCYTES % (AUTO) 31.3 %; MEAN CORPUSCULAR HEMOGLOBIN 29.6 pg (27.0-31.0); MEAN CORPUSCULAR HGB CONC 32.1 g/dL (32.0-36.0); MEAN CORPUSCULAR VOLUME 92.3 fL (81.0-99.0); MEAN PLATELET VOLUME 10.4 fL (7.9-10.8); MONOCYTES # (AUTO) 0.6 10^3/uL (0.0-1.0); NEUTROPHILS # (AUTO) 2.9 10^3/uL (1.5-6.6); NEUTROPHILS % (AUTO) 53.4 %; PLT - PLATELET COUNT 118 10^3/uL (130-450); RED BLOOD COUNT 4.26 10^6/uL (4.20-5.40); RED CELL DISTRIBUTION WIDTH 13.2 % (12.0-15.0); WHITE BLOOD COUNT 5.4 x10^3/uL (4.8-10.8)
[2019-03-05 00:32] LABS: ALBUMIN 3.7 g/dL (3.2-5.5); ALBUMIN/GLOBULIN RATIO 1.2 (1.0-2.2); BILIRUBIN,TOTAL 0.8 mg/dL (0.2-1.0); CALCIUM 9.1 mg/dL (8.5-10.3); CREATININE 1.1 mg/dL (0.4-1.0); TOTAL PROTEIN 6.9 g/dL (6.7-8.2)
[2019-03-05 00:33] LABS: BILIRUBIN,URINE NEGATIVE (NEGATIVE); GLUCOSE, URINE (UA) NEGATIVE (NEGATIVE); KETONES,URINE (UA) NEGATIVE (NEGATIVE); LEUKOCYTE ESTERASE, URINE TRACE (NEGATIVE); NITRITE,URINE NEGATIVE (NEGATIVE); OCCULT BLOOD,URINE NEGATIVE (NEGATIVE); PROTEIN,URINE NEGATIVE (NEGATIVE); UROBILINOGEN,URINE 0.2 (NORMAL) E.U./dL (NORMAL)
[2019-03-05 00:34] LABS: CLARITY,URINE CLEAR (CLEAR)
[2019-03-05 00:37] LABS: BACTERIA,URINE Rare /HPF (None Seen); RBC,URINE 0-5 /HPF (0-5); SQUAMOUS EPITHELIAL CELL,UR MOD Squamous (<= Few)
[2019-03-05] MEDS ORDERED: CEPHALEXIN 250 MG Prepack 8 CAP BOTTLE PO STA (01:14)
[2019-03-05 01:20] VITALS: BP 143/66
== END 2019-03-05 01:47 | disposition home or self-care (01) ==
LOC: EDUNIT# → ED 23:09
DX: H60.12 Cellulitis of left external ear (principal); R51 Headache; E11.9 Type 2 diabetes mellitus without complications; Z79.4 Long term (current) use of insulin
CPT/HCPCS: 36415; 80053; 81001; 83690; 83735; 83880; 84484; 85025; 93005; 99283; 99284; A9270; 81003; 87086

== ENCOUNTER 2019-05-08 13:30 | Outpatient (CLI) | payer MEDICARE, OTHER, MEDICAID ==
[2019-05-08 14:04] LABS: CREATININE 1.1 mg/dL (0.4-1.0)
[2019-05-08 14:31] LABS: HB2 TOTAL 13.7 g/dL; HEMOGLOBIN A1C 0.79 g/dL; HEMOGLOBIN A1C % 7.4 % (4.6-6.2)
== END 2019-05-08 23:59 | disposition home or self-care (01) ==
LOC: LAB 13:30
PROVIDERS: ATTEND Family Medicine
DX: E11.49 Type 2 diabetes mellitus with other diabetic neurological complication (principal); E78.5 Hyperlipidemia, unspecified; I10 Essential (primary) hypertension
CPT/HCPCS: 36415; 80048; 83036

== ENCOUNTER 2019-08-05 12:36 | Outpatient (CLI) | payer MEDICARE, OTHER, MEDICAID ==
[2019-08-05 12:55] LABS: CALCIUM 9.3 mg/dL (8.5-10.3); CREATININE 1.5 mg/dL (0.4-1.0)
== END 2019-08-05 12:37 | disposition home or self-care (01) ==
LOC: LAB 12:36
PROVIDERS: ATTEND Internal Medicine Cardiovascular Disease
DX: I10 Essential (primary) hypertension (principal)
CPT/HCPCS: 36415; 80048

== ENCOUNTER 2019-08-18 09:47 | Outpatient (CLI) | payer MEDICARE, OTHER, MEDICAID ==
[2019-08-18 10:39] LABS: HB2 TOTAL 14.2 g/dL; HEMOGLOBIN A1C 0.79 g/dL; HEMOGLOBIN A1C % 7.2 % (4.6-6.2)
[2019-08-18 11:14] LABS: ALBUMIN 3.9 g/dL (3.2-5.5); ALBUMIN/GLOBULIN RATIO 1.1 (1.0-2.2); ALKALINE PHOSPHATASE 87 IU/L (42-121); ALT ALANINE AMINOTRANSFERASE 23 IU/L (10-60); AST ASPARTATE AMINOTRANSFERASE 26 IU/L (10-42); BILIRUBIN,TOTAL 0.7 mg/dL (0.2-1.0); BUN - BLOOD UREA NITROGEN 22 mg/dL (6-20); CALCIUM 9.2 mg/dL (8.5-10.3); CARBON DIOXIDE - CO2 23 mmol/L (21-32); CHLORIDE 110 mmol/L (101-111); CHOL/HDL RATIO 2.6 (<4.4); CHOLESTEROL 123 mg/dL; GFR - MDRD 53 (>89); GLUCOSE 142 mg/dL (70-100); HDL CHOLESTEROL 48 mg/dL; LDL CHOLESTEROL,CALCULATED 55 mg/dL; LDL/HDL RATIO 1.1 (<4.4); SODIUM 140 mmol/L (135-145); TOTAL PROTEIN 7.4 g/dL (6.7-8.2); VLDL CHOLESTEROL 20 mg/dL
== END 2019-08-18 09:48 | disposition home or self-care (01) ==
LOC: LAB 09:47
PROVIDERS: ATTEND Internal Medicine Cardiovascular Disease
DX: E78.5 Hyperlipidemia, unspecified (principal); I95.2 Hypotension due to drugs; E11.49 Type 2 diabetes mellitus with other diabetic neurological complication; E11.22 Type 2 diabetes mellitus with diabetic chronic kidney disease; I12.9 Hypertensive chronic kidney disease with stage 1 through stage 4 chronic kidney disease, or unspecified chronic kidney disease; N18.9 Chronic kidney disease, unspecified
CPT/HCPCS: 36415; 80053; 80061; 83036; 83721

== ENCOUNTER 2020-05-04 14:39 | Outpatient (CLI) | payer MEDICARE, OTHER, MEDICAID ==
[2020-05-04 15:03] LABS: CALCIUM 9.1 mg/dL (8.5-10.3); CREATININE 1.1 mg/dL (0.4-1.0)
[2020-05-04 15:36] LABS: CREATININE,URINE 60.7 mg/dL; MICROALBUM/CREATININE RATIO,UR 11.5 ug/mg (<30.0); MICROALBUMIN,URINE 0.7 mg/dL (0-300.0)
[2020-05-04 18:46] LABS: HEMOGLOBIN A1c% 6.8 % (4.27-6.07)
== END 2020-05-04 14:40 | disposition home or self-care (01) ==
LOC: LAB 14:39
PROVIDERS: ATTEND Family Medicine
DX: E11.42 Type 2 diabetes mellitus with diabetic polyneuropathy (principal)
CPT/HCPCS: 36415; 80048; 82043; 82570; 83036

== ENCOUNTER 2020-08-05 07:00 | Outpatient (CLI) | payer MEDICARE, OTHER, MEDICAID ==
[2020-08-05 10:42] LABS: BASOPHILS # (AUTO) 0.1 10^3/uL (0.0-0.1); BASOPHILS % (AUTO) 0.7 %; EOSINOPHILS # (AUTO) 0.2 10^3/uL (0.0-0.7); EOSINOPHILS % (AUTO) 3.2 %; HGB - HEMOGLOBIN 13.2 g/dL (12.0-16.0); LYMPHOCYTES # (AUTO) 1.9 10^3/uL (1.5-3.5); LYMPHOCYTES % (AUTO) 28.2 %; MEAN CORPUSCULAR HEMOGLOBIN 29.1 pg (27.0-31.0); MEAN CORPUSCULAR HGB CONC 30.8 g/dL (32.0-36.0); MEAN CORPUSCULAR VOLUME 94.3 fL (81.0-99.0); MEAN PLATELET VOLUME 10.8 fL (7.9-10.8); MONOCYTES # (AUTO) 0.6 10^3/uL (0.0-1.0); MONOCYTES % (AUTO) 8.1 %; NEUTROPHILS % (AUTO) 59.5 %; PLT - PLATELET COUNT 118 10^3/uL (130-450); RED BLOOD COUNT 4.54 10^6/uL (4.20-5.40); WHITE BLOOD COUNT 6.8 x10^3/uL (4.8-10.8)
[2020-08-05 11:03] LABS: ALBUMIN 3.9 g/dL (3.2-5.5); ALBUMIN/GLOBULIN RATIO 1.2 (1.0-2.2); ALKALINE PHOSPHATASE 83 IU/L (42-121); ALT ALANINE AMINOTRANSFERASE 17 IU/L (10-60); AST ASPARTATE AMINOTRANSFERASE 22 IU/L (10-42); BILIRUBIN,TOTAL 0.8 mg/dL (0.2-1.0); BUN - BLOOD UREA NITROGEN 25 mg/dL (6-20); CALCIUM 9.3 mg/dL (8.5-10.3); CARBON DIOXIDE - CO2 23 mmol/L (21-32); CHLORIDE 106 mmol/L (101-111); CHOL/HDL RATIO 2.2 (<4.4); CHOLESTEROL 113 mg/dL; CREATININE 1.1 mg/dL (0.4-1.0); GLUCOSE 104 mg/dL (70-100); HDL CHOLESTEROL 52 mg/dL; LDL CHOLESTEROL,CALCULATED 48 mg/dL; LDL/HDL RATIO 0.9 (<4.4); TOTAL PROTEIN 7.1 g/dL (6.7-8.2); VLDL CHOLESTEROL 13 mg/dL
[2020-08-05 11:25] LABS: HEMOGLOBIN A1c% 6.6 % (4.27-6.07)
== END 2020-08-05 23:59 | disposition home or self-care (01) ==
LOC: LAB 07:00
PROVIDERS: ATTEND Family Medicine
DX: I25.10 Atherosclerotic heart disease of native coronary artery without angina pectoris (principal); M06.9 Rheumatoid arthritis, unspecified; E11.49 Type 2 diabetes mellitus with other diabetic neurological complication; E78.5 Hyperlipidemia, unspecified; I10 Essential (primary) hypertension; R06.02 Shortness of breath; E78.00 Pure hypercholesterolemia, unspecified
CPT/HCPCS: 36415; 80053; 80061; 83036; 83721; 83880; 84443; 85025

== ENCOUNTER 2020-10-10 10:33 | Outpatient (CLI) | payer MEDICARE, OTHER, MEDICAID ==
[2020-10-10 11:46] LABS: BUN - BLOOD UREA NITROGEN 21 mg/dL (6-20); CALCIUM 9.2 mg/dL (8.5-10.3); CARBON DIOXIDE - CO2 22 mmol/L (21-32); CHLORIDE 112 mmol/L (101-111); CHOL/HDL RATIO 2.3 (<4.4); CHOLESTEROL 101 mg/dL; CREATININE 1.2 mg/dL (0.4-1.0); GFR - MDRD 43 (>89); GLUCOSE 110 mg/dL (70-100); HDL CHOLESTEROL 44 mg/dL; LDL CHOLESTEROL,CALCULATED 45 mg/dL; MAGNESIUM 2.1 mg/dL (1.7-2.8); POTASSIUM 5.4 mmol/L (3.5-5.0); SODIUM 141 mmol/L (135-145); TRIGLYCERIDES 59 mg/dL; VLDL CHOLESTEROL 12 mg/dL
== END 2020-10-10 10:34 | disposition home or self-care (01) ==
LOC: LAB 10:33
PROVIDERS: ATTEND Internal Medicine Cardiovascular Disease
DX: I10 Essential (primary) hypertension (principal); R06.02 Shortness of breath; I25.5 Ischemic cardiomyopathy; R07.89 Other chest pain; I47.2 Ventricular tachycardia; I49.3 Ventricular premature depolarization; E78.00 Pure hypercholesterolemia, unspecified; Z20.822 Contact with and (suspected) exposure to COVID-19
CPT/HCPCS: 36415; 80048; 80061; 83735; 83880; 84443; U0004; 83721

== ENCOUNTER 2020-10-20 22:27 | Outpatient (CLI) | payer MEDICARE, OTHER, MEDICAID | END 2020-10-20 22:28 | disposition EMS.NT | LOC: EMS 22:27 | DX: F41.9 Anxiety disorder, unspecified (principal) ==

== ENCOUNTER 2020-11-11 07:10 | Outpatient (CLI) | payer MEDICARE, OTHER | END 2020-11-11 07:11 | disposition home or self-care (01) | LOC: LAB 07:10 | PROVIDERS: ATTEND Internal Medicine Cardiovascular Disease | DX: Z01.812 Encounter for preprocedural laboratory examination (principal); I49.5 Sick sinus syndrome ==

== ENCOUNTER 2020-12-23 16:33 | Outpatient (CLI) | payer MEDICARE, OTHER ==
[2020-12-23 16:43] LABS: BASOPHILS % (AUTO) 0.4 %; EOSINOPHILS # (AUTO) 0.2 10^3/uL (0.0-0.7); EOSINOPHILS % (AUTO) 2.2 %; HCT - HEMATOCRIT 33.6 % (37.0-47.0); HGB - HEMOGLOBIN 11.3 g/dL (12.0-16.0); LYMPHOCYTES # (AUTO) 2.1 10^3/uL (1.5-3.5); LYMPHOCYTES % (AUTO) 28.1 %; MEAN CORPUSCULAR HEMOGLOBIN 31.6 pg (27.0-31.0); MEAN CORPUSCULAR HGB CONC 33.6 g/dL (32.0-36.0); MEAN CORPUSCULAR VOLUME 93.9 fL (81.0-99.0); MEAN PLATELET VOLUME 9.6 fL (7.9-10.8); MONOCYTES # (AUTO) 0.7 10^3/uL (0.0-1.0); MONOCYTES % (AUTO) 9.8 %; NEUTROPHILS # (AUTO) 4.3 10^3/uL (1.5-6.6); NEUTROPHILS % (AUTO) 59.2 %; PLT - PLATELET COUNT 120 10^3/uL (130-450); RED BLOOD COUNT 3.58 10^6/uL (4.20-5.40); RED CELL DISTRIBUTION WIDTH 13.4 % (12.0-15.0); WHITE BLOOD COUNT 7.3 x10^3/uL (4.8-10.8)
== END 2020-12-23 16:34 | disposition home or self-care (01) ==
LOC: LAB 16:33
PROVIDERS: ATTEND Internal Medicine
DX: R23.8 Other skin changes (principal)
CPT/HCPCS: 36415; 85025

== ENCOUNTER 2020-12-29 11:32 | Outpatient (CLI) | payer MEDICARE, OTHER ==
[2020-12-29 12:01] LABS: ABSOLUTE RETICS # AUTO 0.047 10^6/uL (0.020-0.110); BASOPHILS % (AUTO) 0.6 %; EOSINOPHILS # (AUTO) 0.1 10^3/uL (0.0-0.7); EOSINOPHILS % (AUTO) 2.1 %; HGB - HEMOGLOBIN 11.5 g/dL (12.0-16.0); LYMPHOCYTES # (AUTO) 1.3 10^3/uL (1.5-3.5); LYMPHOCYTES % (AUTO) 25.1 %; MEAN CORPUSCULAR HEMOGLOBIN 31.6 pg (27.0-31.0); MEAN CORPUSCULAR HGB CONC 32.9 g/dL (32.0-36.0); MEAN CORPUSCULAR VOLUME 96.2 fL (81.0-99.0); MEAN PLATELET VOLUME 9.1 fL (7.9-10.8); MONOCYTES # (AUTO) 0.5 10^3/uL (0.0-1.0); MONOCYTES % (AUTO) 8.5 %; NEUTROPHILS # (AUTO) 3.4 10^3/uL (1.5-6.6); NEUTROPHILS % (AUTO) 63.3 %; PLT - PLATELET COUNT 114 10^3/uL (130-450); RED BLOOD COUNT 3.64 10^6/uL (4.20-5.40); RED CELL DISTRIBUTION WIDTH 13.6 % (12.0-15.0); WHITE BLOOD COUNT 5.3 x10^3/uL (4.8-10.8)
[2020-12-29 12:42] LABS: FERRITIN 161.3 ng/mL (11.0-306.8)
[2020-12-29 12:45] LABS: FOLATE 8.78 ng/mL (5.90 - >24.8)
[2020-12-29 16:52] LABS: % IRON SATURATION 29 % (20-50); IRON 87 ug/dL (28-170); TOTAL IRON BINDING CAPACITY 305 ug/dL (250-450); TRANSFERRIN 218 mg/dL (192-382)
== END 2020-12-29 11:33 | disposition home or self-care (01) ==
LOC: LAB 11:32
PROVIDERS: ATTEND Internal Medicine
DX: D64.9 Anemia, unspecified (principal)
CPT/HCPCS: 36415; 82607; 82728; 82746; 83540; 84466; 85025; 85045

== ENCOUNTER 2020-12-31 08:00 | Outpatient (CLI) | payer MEDICARE, OTHER ==
[2020-12-31 16:14] LABS: FECAL OCCULT BLOOD (FIT) NEGATIVE (NEGATIVE)
== END 2020-12-31 23:59 | disposition home or self-care (01) ==
LOC: LAB.R 08:00
PROVIDERS: ATTEND Internal Medicine
DX: D64.9 Anemia, unspecified (principal)
CPT/HCPCS: 82274

== ENCOUNTER 2021-02-09 10:27 | Outpatient (CLI) | payer MEDICARE, OTHER ==
[2021-02-09 11:01] LABS: BUN - BLOOD UREA NITROGEN 31 mg/dL (6-20); CALCIUM 9.1 mg/dL (8.5-10.3); CARBON DIOXIDE - CO2 22 mmol/L (21-32); CHLORIDE 108 mmol/L (101-111); CHOL/HDL RATIO 2.7 (<4.4); CHOLESTEROL 124 mg/dL; CREATININE 1.1 mg/dL (0.4-1.0); GFR - MDRD 47 (>89); GLUCOSE 142 mg/dL (70-100); HDL CHOLESTEROL 46 mg/dL; LDL CHOLESTEROL,CALCULATED 63 mg/dL; LDL/HDL RATIO 1.4 (<4.4); POTASSIUM 4.6 mmol/L (3.5-5.0); SODIUM 139 mmol/L (135-145); TRIGLYCERIDES 75 mg/dL; VLDL CHOLESTEROL 15 mg/dL
[2021-02-09 11:04] LABS: CREATININE,URINE 47.1 mg/dL; MICROALBUM/CREATININE RATIO,UR 31.8 ug/mg (<30.0); MICROALBUMIN,URINE 1.5 mg/dL (0-300.0)
[2021-02-09 11:33] LABS: ESTIMATED AVERAGE GLUCOSE 140 mg/dL (70-100); HEMOGLOBIN A1c% 6.5 % (4.27-6.07)
== END 2021-02-09 10:28 | disposition home or self-care (01) ==
LOC: LAB 10:27
PROVIDERS: ATTEND Internal Medicine
DX: E11.42 Type 2 diabetes mellitus with diabetic polyneuropathy (principal)
CPT/HCPCS: 36415; 80048; 80061; 82043; 82570; 83036; 83721

== ENCOUNTER 2021-05-15 11:14 | Outpatient (CLI) | payer MEDICARE, OTHER ==
[2021-05-15 11:43] LABS: BASOPHILS % (AUTO) 0.7 %; EOSINOPHILS # (AUTO) 0.2 10^3/uL (0.0-0.7); EOSINOPHILS % (AUTO) 2.9 %; HCT - HEMATOCRIT 38.4 % (37.0-47.0); HGB - HEMOGLOBIN 12.4 g/dL (12.0-16.0); LYMPHOCYTES # (AUTO) 1.5 10^3/uL (1.5-3.5); LYMPHOCYTES % (AUTO) 27.2 %; MEAN CORPUSCULAR HEMOGLOBIN 31.7 pg (27.0-31.0); MEAN CORPUSCULAR HGB CONC 32.3 g/dL (32.0-36.0); MEAN CORPUSCULAR VOLUME 98.2 fL (81.0-99.0); MONOCYTES # (AUTO) 0.5 10^3/uL (0.0-1.0); MONOCYTES % (AUTO) 8.8 %; NEUTROPHILS # (AUTO) 3.3 10^3/uL (1.5-6.6); NEUTROPHILS % (AUTO) 60.2 %; PLT - PLATELET COUNT 137 10^3/uL (130-450); RED BLOOD COUNT 3.91 10^6/uL (4.20-5.40); RED CELL DISTRIBUTION WIDTH 11.5 % (12.0-15.0); WHITE BLOOD COUNT 5.4 x10^3/uL (4.8-10.8)
[2021-05-15 12:00] LABS: ALBUMIN/GLOBULIN RATIO 1.2 (1.0-2.2); ALKALINE PHOSPHATASE 98 IU/L (42-121); ALT ALANINE AMINOTRANSFERASE 20 IU/L (10-60); AST ASPARTATE AMINOTRANSFERASE 24 IU/L (10-42); BILIRUBIN,TOTAL 0.9 mg/dL (0.2-1.0); BUN - BLOOD UREA NITROGEN 28 mg/dL (6-20); CALCIUM 9.4 mg/dL (8.5-10.3); CARBON DIOXIDE - CO2 22 mmol/L (21-32); CHLORIDE 108 mmol/L (101-111); CHOL/HDL RATIO 2.6 (<4.4); CHOLESTEROL 125 mg/dL; CREATININE 1.1 mg/dL (0.4-1.0); GFR - MDRD 47 (>89); GLUCOSE 120 mg/dL (70-100); HDL CHOLESTEROL 49 mg/dL; LDL CHOLESTEROL,CALCULATED 61 mg/dL; LDL/HDL RATIO 1.2 (<4.4); POTASSIUM 4.8 mmol/L (3.5-5.0); SODIUM 139 mmol/L (135-145); TOTAL PROTEIN 7.3 g/dL (6.7-8.2); TRIGLYCERIDES 74 mg/dL; VLDL CHOLESTEROL 15 mg/dL
[2021-05-15 12:01] LABS: CRP - C-REACTIVE PROTEIN < 1.0 mg/dL (0-1.0)
[2021-05-15 12:12] LABS: THYROID STIMULATING HORMONE 3.64 uIU/mL (0.34-5.60)
[2021-05-15 12:51] LABS: ESTIMATED AVERAGE GLUCOSE 137 mg/dL (70-100); HEMOGLOBIN A1c% 6.4 % (4.27-6.07)
[2021-05-15 12:59] LABS: CREATININE,URINE 55.7 mg/dL; MICROALBUM/CREATININE RATIO,UR 34.1 ug/mg (<30.0); MICROALBUMIN,URINE 1.9 mg/dL (0-300.0)
[2021-05-15 14:44] LABS: RHEUMATOID FACTOR NEGATIVE (Negative)
--- NOTE | 2021-05-15 14:57 | XRAY Report ---
PROCEDURE: Hips 2V BILAT INDICATIONS: HIP PAIN TECHNIQUE: 2 views of the hip were acquired. COMPARISON: Xray lumbar spiine 05/15/2021 FINDINGS: Bones: No fractures or dislocations. No suspicious bony lesions. The visualized pelvic ring appear s intact. Degenerative changes are present within the lower lumbar spine. Moderate to severe left an d moderate right foraminal narrowing is present within the hips. Periarticular osteophytes are presen t. No erosions. Soft tissues: No suspicious soft tissue calcifications or masses. IMPRESSION: Bilateral hip arthritis, left greater than right as well as arthritic changes within the visualized l ower lumbar spine. Reviewed by: Sydney Askew MD on 05/15/2021 2:56 PM PST Approved by: Sydney Askew MD on 05/15/2021 2:56 PM PST Station ID: [id number]
--- NOTE | 2021-05-15 14:57 | XRAY Report ---
PROCEDURE: Lumbar Spine 2 View INDICATIONS: L SPINE DJD TECHNIQUE: 2 views of the lumbar spine were acquired. COMPARISON: None. FINDINGS: Bones: 5 [id number] vertebrae are present. There is rightward scoliotic curvature with apex at L2. No vertebral body compression fractures. No suspicious bony lesions. Severe significant bridgi ng anterior osteophytes are present throughout the lumbar spine. Multilevel moderate to severe disc a nd foraminal narrowing are also present. Soft tissues: Overlying bowel gas pattern is normal. No suspicious soft tissue calcifications. IMPRESSION: Significant multilevel degenerative changes. Reviewed by: Sydney Askew MD on 05/15/2021 2:55 PM PST Approved by: Sydney Askew MD on 05/15/2021 2:55 PM PST Station ID: [id number]
[2021-05-19 18:31] LABS: ANA SCREEN NEGATIVE (NEGATIVE)
== END 2021-05-15 11:15 | disposition home or self-care (01) ==
LOC: LAB 11:14
PROVIDERS: ATTEND Internal Medicine
DX: E11.42 Type 2 diabetes mellitus with diabetic polyneuropathy (principal); M06.9 Rheumatoid arthritis, unspecified; M47.896 Other spondylosis, lumbar region; M16.0 Bilateral primary osteoarthritis of hip
CPT/HCPCS: 36415; 80053; 80061; 82043; 82570; 83036; 83721; 84443; 85025; 85651; 86038; 86140; 86200; 86430

== ENCOUNTER 2021-08-09 10:56 | Outpatient (CLI) | payer MEDICARE, OTHER ==
[2021-08-09 11:24] LABS: BASOPHILS % (AUTO) 0.4 %; EOSINOPHILS # (AUTO) 0.2 10^3/uL (0.0-0.7); EOSINOPHILS % (AUTO) 2.4 %; HCT - HEMATOCRIT 37.5 % (37.0-47.0); HGB - HEMOGLOBIN 12.1 g/dL (12.0-16.0); LYMPHOCYTES # (AUTO) 1.9 10^3/uL (1.5-3.5); LYMPHOCYTES % (AUTO) 26.2 %; MEAN CORPUSCULAR HEMOGLOBIN 30.6 pg (27.0-31.0); MEAN CORPUSCULAR HGB CONC 32.3 g/dL (32.0-36.0); MEAN CORPUSCULAR VOLUME 94.9 fL (81.0-99.0); MEAN PLATELET VOLUME 9.9 fL (7.9-10.8); MONOCYTES # (AUTO) 0.5 10^3/uL (0.0-1.0); MONOCYTES % (AUTO) 7.5 %; NEUTROPHILS # (AUTO) 4.5 10^3/uL (1.5-6.6); NEUTROPHILS % (AUTO) 63.2 %; PLT - PLATELET COUNT 158 10^3/uL (130-450); RED BLOOD COUNT 3.95 10^6/uL (4.20-5.40); RED CELL DISTRIBUTION WIDTH 11.9 % (12.0-15.0); WHITE BLOOD COUNT 7.1 x10^3/uL (4.8-10.8)
[2021-08-09 11:41] LABS: CREATININE,URINE 46.4 mg/dL; MICROALBUM/CREATININE RATIO,UR 15.1 ug/mg (<30.0); MICROALBUMIN,URINE 0.7 mg/dL (0-300.0)
[2021-08-09 11:42] LABS: ALBUMIN 3.7 g/dL (3.2-5.5); ALKALINE PHOSPHATASE 98 IU/L (42-121); ALT ALANINE AMINOTRANSFERASE 16 IU/L (10-60); AST ASPARTATE AMINOTRANSFERASE 22 IU/L (10-42); BILIRUBIN,TOTAL 0.6 mg/dL (0.2-1.0); BUN - BLOOD UREA NITROGEN 31 mg/dL (6-20); CALCIUM 9.2 mg/dL (8.5-10.3); CARBON DIOXIDE - CO2 22 mmol/L (21-32); CHLORIDE 104 mmol/L (101-111); CHOL/HDL RATIO 2.8 (<4.4); CHOLESTEROL 114 mg/dL; CREATININE 1.3 mg/dL (0.4-1.0); GFR - MDRD 39 (>89); GLUCOSE 120 mg/dL (70-100); HDL CHOLESTEROL 41 mg/dL; LDL CHOLESTEROL,CALCULATED 59 mg/dL; LDL/HDL RATIO 1.4 (<4.4); POTASSIUM 5.1 mmol/L (3.5-5.0); SODIUM 136 mmol/L (135-145); TOTAL PROTEIN 7.3 g/dL (6.7-8.2); TRIGLYCERIDES 68 mg/dL; VLDL CHOLESTEROL 14 mg/dL
[2021-08-09 12:23] LABS: ESTIMATED AVERAGE GLUCOSE 151 mg/dL (70-100); HEMOGLOBIN A1c% 6.9 % (4.27-6.07)
== END 2021-08-09 10:57 | disposition home or self-care (01) ==
LOC: LAB 10:56
PROVIDERS: ATTEND Internal Medicine
DX: I10 Essential (primary) hypertension (principal); E78.5 Hyperlipidemia, unspecified; E11.42 Type 2 diabetes mellitus with diabetic polyneuropathy
CPT/HCPCS: 36415; 80053; 80061; 82043; 82570; 83036; 83721; 85025

== ENCOUNTER 2021-08-31 09:37 | Outpatient (CLI) | payer MEDICARE, OTHER ==
[2021-08-31 10:08] LABS: ALBUMIN 3.8 g/dL (3.2-5.5); ALBUMIN/GLOBULIN RATIO 1.1 (1.0-2.2); ALKALINE PHOSPHATASE 97 IU/L (42-121); ALT ALANINE AMINOTRANSFERASE 17 IU/L (10-60); AST ASPARTATE AMINOTRANSFERASE 25 IU/L (10-42); BILIRUBIN,TOTAL 0.7 mg/dL (0.2-1.0); BUN - BLOOD UREA NITROGEN 36 mg/dL (6-20); CARBON DIOXIDE - CO2 20 mmol/L (21-32); CHLORIDE 108 mmol/L (101-111); CHOL/HDL RATIO 2.4 (<4.4); CHOLESTEROL 115 mg/dL; CREATININE 1.4 mg/dL (0.4-1.0); GFR - MDRD 36 (>89); GLUCOSE 139 mg/dL (70-100); HDL CHOLESTEROL 48 mg/dL; LDL CHOLESTEROL,CALCULATED 55 mg/dL; LDL/HDL RATIO 1.1 (<4.4); POTASSIUM 4.7 mmol/L (3.5-5.0); SODIUM 137 mmol/L (135-145); TOTAL PROTEIN 7.3 g/dL (6.7-8.2); TRIGLYCERIDES 58 mg/dL; VLDL CHOLESTEROL 12 mg/dL
== END 2021-08-31 09:38 | disposition home or self-care (01) ==
LOC: LAB 09:37
PROVIDERS: ATTEND Internal Medicine Cardiovascular Disease
DX: I10 Essential (primary) hypertension (principal); I25.5 Ischemic cardiomyopathy
CPT/HCPCS: 36415; 80053; 80061; 83721

== ENCOUNTER 2021-09-08 16:18 | Emergency (ER) | payer MEDICARE, OTHER ==
--- NOTE | 2021-09-08 16:49 | ED Physician Documentation ---
History of Present Illness - Stated complaint Stated Complaint: DIZZY,SOA - Chief complaint Chief Complaint: Cardiac - Additonal information Additional information: 81-year-old female who has a history most significant for type 2 diabetes as well as significant coronary artery disease as well as pacemaker x2 presents the emergency department for evaluation of worsening shortness of air as well as abdominal bloating. She is followed by Dr. Niesha Robles robot designer through [facility]. He had advised her to come to the emergency department because recent labs showed worsening kidney disease. Patient states that over the last 3 to 4 weeks that she has had worsening shortness of air especially with exertion. Occasionally she has had some chest pain though none right now. She denies any leg or arm swelling but states that her shirts are fitting differently and her abdomen has become bloated. She is unsurwe of weight gain. Patient reports that for the same amount of time 3 to 4 weeks she has been having some mild right upper quadrant abdominal pain. No fevers or vomiting and does not seem to be centered around eating. She does report that she has chronic constipation for which she takes Linzess. She is scheduled to see her robot designer (Andrea) on 14 September. Patient had attempted to speak with her cardiology office regarding her shortness of air multiple times over the last few weeks. She also attempted to get in contact with Dr. Kelly's office but no phone calls were returned. Today the doctor's office recommended she come to the ER for further evaluation of her shortness of air and abdominal bloating. Review of Systems Constitutional: denies: Fever, Chills Eyes: reports: Reviewed and negative Throat: reports: Reviewed and negative Cardiac: reports: Chest pain / pressure, Palpitations, Other (abdominal bloating). denies: Pedal edema, Calf pain Respiratory: reports: Dyspnea. denies: Cough, Hemoptysis, Wheezing GI: reports: Abdominal Swelling, Constipation. denies: Abdominal Pain, Nausea, Vomiting, Diarrhea, Hematemesis, Bloody / black stool : reports: Reviewed and negative Skin: reports: Reviewed and negative Musculoskeletal: reports: Reviewed and negative Neurologic: reports: Reviewed and negative PD PAST MEDICAL HISTORY - Past Medical History Cardiovascular: [place] Respiratory: None Endocrine/Autoimmune: Type 2 diabetes GI: Diverticulitis BLOOD DONOR RECRUITER: Breast cancer, Other : Incontinence, Kidney stones HEENT: Chronic vision loss, Macular degeneration Psych: Anxiety Musculoskeletal: None Derm: None - Past Surgical History Past Surgical History: Yes General: Other /BLOOD DONOR RECRUITER: Hysterectomy, Oophrectomy, Mastectomy, Breast implants Cardiovascular: CABG, Coronary stent, AICD - Present Medications Home Medications: Ambulatory Orders Medication Instructions Recorded Confirmed Aspirin Chewable [St Eleazar 81 mg PO DAILY 05/03/17 09/06/21 Aspirin] Atorvastatin Calcium 80 mg PO QPM 05/03/17 09/06/21 Isosorbide Mononitrate [Isosorbide 30 mg PO DAILY 05/03/17 09/06/21 Mononitrate ER] Losartan Potassium 25 mg PO QPM 05/03/17 09/06/21 carvediloL [Carvedilol] 6.25 mg PO BID 05/03/17 09/06/21 Insulin Glargine [Lantus Solostar] 20 unit SUBQ QPM 06/20/17 09/06/21 Oxybutynin Chloride [Ditropan Xl] 5 mg PO DAILY 06/20/17 09/06/21 Insulin Lispro [Humalog Kwikpen] 3 unit SQ TIDWM 07/26/17 09/06/21 Acetaminophen [Tylenol Extra 1,000 mg PO QPM 01/15/19 09/06/21 Strength] [place]-3/Dha/Epa/Fish Oil [[place] 3 1 each PO DAILY 01/15/19 09/06/21 500 Softgel] Furosemide [Lasix] 20 mg PO DAILY 09/06/21 09/06/21 Linaclotide [Linzess] 145 mcg PO DAILY 09/06/21 09/06/21 Spironolactone [Aldactone] 12.5 mg PO DAILY 09/06/21 09/06/21 Wheat Dextrin [Benefiber] 1 each PO DAILY 09/06/21 09/06/21 - Allergies Allergies/Adverse Reactions: Allergies Allergy/AdvReac Type Severity Reaction Status Date / Time hydromorphone [From Dilaudid] Allergy Severe Itching Verified 09/08/21 16:32 Penicillins Allergy Severe Rash Verified 09/08/21 16:32 lisinopril AdvReac Severe cough Verified 09/08/21 16:32 metformin AdvReac Severe Emesis Verified 09/08/21 16:32 - Social History Does the pt smoke?: No Smoking Status: Never smoker Does the pt drink ETOH?: No Does the pt have substance abuse?: No - Immunizations Immunizations are current?: Yes - POLST Patient has POLST: Yes PD ED PE EXPANDED - General General: Alert, No acute distress - Cardiac Cardiac: Regular Rate, Radial strong equal, Pedal strong equal, Cap refill < 2 sec. No: Murmur Present - Respiratory Respiratory: Clear to ausultation myriam. No: Distress, Labored - Abdomen Abdomen: Hyperactive BS, Tender to palpation - Derm Derm: Normal color, Warm and dry. No: Rash - Extremities Extremities: Normal. No: Deformity, Tenderness, Pedal edema bilateral - Neuro Neuro: Alert and Oriented X 3, CNII-XII intact - GCS Eye Opening: Spontaneous Motor: Obeys Commands Verbal: Oriented Total: 15 Results - Vitals Vitals: Vital Signs - 24 hr 09/08/21 09/08/21 09/08/21 16:22 16:32 17:09 Temperature 35.8 C L Heart Rate 70 70 70 Respiratory 24 18 18 Rate Blood Pressure 106/70 118/102 H O2 Saturation 97 98 100 09/08/21 19:03 Temperature Heart Rate 72 Respiratory 22 Rate Blood Pressure 132/100 H O2 Saturation 97 Oxygen O2 Source Room air - EKG (time done) 1649 Rate: Rate (enter#) (70) Rhythm: Paced Intervals: LBBB - Labs Labs: Laboratory Tests 09/08/21 09/08/21 09/08/21 16:47 16:47 16:47 WBC 5.6 RBC 3.82 L Hgb 11.7 L Hct 36.1 L MCV 94.5 MCH 30.6 MCHC 32.4 RDW 12.6 Plt Count 138 MPV 10.0 Neut # (Auto) 3.1 Lymph # (Auto) 1.6 [place] # (Auto) 0.6 Eos # (Auto) 0.2 Baso # (Auto) 0.0 Absolute Nucleated RBC 0.00 Nucleated RBC % 0.0 Sodium 138 Potassium 4.0 Chloride 106 Carbon Dioxide 22 Anion Gap 10.0 BUN 31 H Creatinine 1.3 H Estimated GFR (MDRD) 39 L Glucose 156 H Calcium 9.2 Total Bilirubin 0.2 AST 23 ALT 18 Alkaline Phosphatase 112 Troponin I High Sens 13.6 B-Natriuretic Peptide Total Protein 7.1 Albumin 3.8 Globulin 3.3 Albumin/Globulin Ratio 1.2 Lipase 33 09/08/21 16:47 WBC RBC Hgb Hct MCV MCH MCHC RDW Plt Count MPV Neut # (Auto) Lymph # (Auto) [place] # (Auto) Eos # (Auto) Baso # (Auto) Absolute Nucleated RBC Nucleated RBC % Sodium Potassium Chloride Carbon Dioxide Anion Gap BUN Creatinine Estimated GFR (MDRD) Glucose Calcium Total Bilirubin AST ALT Alkaline Phosphatase Troponin I High Sens B-Natriuretic Peptide 96 Total Protein Albumin Globulin Albumin/Globulin Ratio Lipase - Rads (name of study) CXR' Radiology: EMP read indepedently (No acute cardiopulmonary process. Pacemaker and wires seen in place.) abd US Radiology: Other (Per development technologist known cholelithiasis. Upper limits of the gallbladder wall. No free fluid or other signs of acute cholecystitis.) PD MEDICAL DECISION MAKING - ED course Complexity details: reviewed results, re-evaluated patient, d/w patient, d/w recruiting and selection consultant ([facility] cardiology [place])) ED course: 81-year-old female presents emergency department for evaluation of 3 to 4 weeks worsening shortness of air as well as what she reports is abdominal bloating and intermittent right upper quadrant pain. She had been told recently by both her primary care provider as well as cardiology that she had some chronic kidney disease. She interpreted this as worsening kidney disease though in review of her labs they are on different. She presents well-appearing without hypoxia. She has no upper or lower extremity edema. Her screening EKG shows a left bundle branch block which is not new. Troponin is negative. Her BNP is 96 this is certainly the best BNP we have had for her. Chest x-ray is without acute focal findings. She is compliant with both her Aldactone as well as her Lasix and clinically she does not appear to be in worsening heart failure. I did discuss this case with Dr. Lang and he agrees and would not recommend any new treatment with regards to her hx of CHF today. She is scheduled to follow-up in office on the . Patient is reporting chronic constipation and right upper quadrant abdominal pain. She does not have any LFT abnormalities. An abdominal ultrasound will be obtained to ensure that there is no findings of cholelithiasis or acute cholecystitis. I suspect that the cause of her bloating and pain is related to her constipation for which she takes Linzess. She may also benefit from [id number] such as MiraLAX. Abdominal ultrasound did not reveal any findings suggestive of acute cholecystitis. These findings were discussed at length with the patient and she is stable for discharge home. Departure - Departure Disposition: 01 Home, Self Care Clinical Impression: Cholelithiasis Qualifiers: Cholelithiasis location: gallbladder Cholecystitis presence: without cholecystitis Biliary obstruction: without biliary obstruction Qualified Code(s): K80.20 - Calculus of gallbladder without cholecystitis without obstruction Dyspnea Qualifiers: Dyspnea type: unspecified Qualified Code(s): R06.00 - Dyspnea, unspecified Constipation Qualifiers: Constipation type: unspecified constipation type Qualified Code(s): K59.00 - Constipation, unspecified CKD (chronic kidney disease) Qualifiers: Chronic kidney disease stage: unspecified stage Qualified Code(s): N18.9 - Chronic kidney disease, unspecified Condition: Stable Record reviewed to determine appropriate education?: Yes Comments: Stacie you were seen today in the emergency department for worsening shortness of air as well as mental pain and constipation. You do have chronic kidney disease but your labs and kidney function are essentially unchanged over the last year. You do not need to make changes to your diuretics. Continue to take them as you already are. Do not miss the follow-up with Dr. Niesha Robles your robot designer next week. The ultrasound of your gallbladder shows gallstones but nothing to suggest a need for surgery tonight. You do have constipation which I think is contribu ting to your shortness of air and bloating. I recommend you continue the Linzess. I also recommend that you start taking MiraLAX once or twice daily until you have 3 or 4 watery bowel movements then you can continue with the Benefiber and Linzess. If at any point you develop chest pain, have sudden severe abdominal pain, black or bloody stools, uncontrolled vomiting then please return immediately to the ER for a second evaluation.
[2021-09-08] MEDS ORDERED: FUROSEMIDE 40 MG/4 ML VIAL IVP STA (16:52)
[2021-09-08 16:53] LABS: BASOPHILS % (AUTO) 0.5 %; EOSINOPHILS # (AUTO) 0.2 10^3/uL (0.0-0.7); EOSINOPHILS % (AUTO) 3.6 %; HCT - HEMATOCRIT 36.1 % (37.0-47.0); HGB - HEMOGLOBIN 11.7 g/dL (12.0-16.0); LYMPHOCYTES # (AUTO) 1.6 10^3/uL (1.5-3.5); LYMPHOCYTES % (AUTO) 28.6 %; MEAN CORPUSCULAR HEMOGLOBIN 30.6 pg (27.0-31.0); MEAN CORPUSCULAR HGB CONC 32.4 g/dL (32.0-36.0); MEAN CORPUSCULAR VOLUME 94.5 fL (81.0-99.0); MONOCYTES # (AUTO) 0.6 10^3/uL (0.0-1.0); NEUTROPHILS # (AUTO) 3.1 10^3/uL (1.5-6.6); NEUTROPHILS % (AUTO) 55.9 %; PLT - PLATELET COUNT 138 10^3/uL (130-450); RED BLOOD COUNT 3.82 10^6/uL (4.20-5.40); RED CELL DISTRIBUTION WIDTH 12.6 % (12.0-15.0); WHITE BLOOD COUNT 5.6 x10^3/uL (4.8-10.8)
[2021-09-08 17:08] LABS: ALBUMIN 3.8 g/dL (3.2-5.5); ALBUMIN/GLOBULIN RATIO 1.2 (1.0-2.2); BILIRUBIN,TOTAL 0.2 mg/dL (0.2-1.0); CALCIUM 9.2 mg/dL (8.5-10.3); CREATININE 1.3 mg/dL (0.4-1.0); TOTAL PROTEIN 7.1 g/dL (6.7-8.2)
--- NOTE | 2021-09-08 17:47 | XRAY Report ---
PROCEDURE: Chest 1 View X-Ray INDICATIONS: Chest Pain TECHNIQUE: One view of the chest was acquired. COMPARISON: 07/31/2019 FINDINGS: Surgical changes and devices: Stable left-sided ICD and median sternotomy changes.. Lungs and pleura: 2.5 cm right midlung nodule with smooth margins stable compared to the prior study. There is mild interstitial prominence in the perihilar regions. No pleural effusion or thorax. Mediastinum: Mediastinal contours appear normal. Heart size is enlarged, stable. Slight central thuy ous congestion.. Bones and chest wall: No suspicious bony lesions. Overlying soft tissues appear unremarkable. IMPRESSION: 1. Possible mild central venous and interstitial congestion. 2. Mild hepatomegaly with ICD. 3. Stable circumscribed right midlung nodule Reviewed by: Ida Parada MD on 09/08/2021 5:46 PM PDT Approved by: Ida Parada MD on 09/08/2021 5:46 PM PDT Station ID: [id number]
[2021-09-08 20:33] VITALS: BP 144/76
--- NOTE | 2021-09-08 20:37 | Ultrasound Report ---
PROCEDURE: Abdomen Limited INDICATIONS: abd pain TECHNIQUE: Real-time focused scanning was performed of the abdomen, with image documentation. COMPARISON: 01/09/2013 FINDINGS: Liver is normal in size. Liver has coarse echotexture. No focal hepatic mass lesions. No intrahepatic biliary tree dilatation. Multiple gallstones are noted. Largest gallstone measures 14 mm. Gallbladder wall is slightly thicken ed at 3.1 mm. No pericholecystic fluid. No sonographic Long sign reported. Biliary tree is mildly dilated with common bile duct measures 9.1 mm. Pancreas not visualized and cannot be evaluated. Right kidney measures 8.9 mm in long axis. Right renal cortex measures 2.1 cm. There is a possible 3 mm nonobstructing right renal stone. IMPRESSION: Cholelithiasis with mild gallbladder wall thickening suspicious for early acute cholecystitis. Recomm end correlation with clinical data. Mild common bile duct dilatation to 9.1 mm. Recommend correlation with clinical and laboratory data t o exclude biliary obstruction. There is clinical concern for biliary obstruction consider MRCP for ad ditional evaluation. Reviewed by: Norma Che MD, PhD on 09/08/2021 8:36 PM PDT Approved by: Norma Che MD, PhD on 09/08/2021 8:36 PM PDT Station ID: [id number]
== END 2021-09-08 20:35 | disposition home or self-care (01) ==
LOC: ED 16:18
DX: K80.20 Calculus of gallbladder without cholecystitis without obstruction (principal); K59.00 Constipation, unspecified; Z95.1 Presence of aortocoronary bypass graft; E11.22 Type 2 diabetes mellitus with diabetic chronic kidney disease; Z79.4 Long term (current) use of insulin; N18.9 Chronic kidney disease, unspecified; Z95.0 Presence of cardiac pacemaker
CPT/HCPCS: 36415; 80053; 83690; 83880; 84484; 85025; 93005; 96374; 99284

== ENCOUNTER 2021-09-26 11:02 | Outpatient (CLI) | payer MEDICARE, OTHER ==
[2021-09-26 11:36] LABS: CALCIUM 8.9 mg/dL (8.5-10.3); CREATININE 1.4 mg/dL (0.4-1.0)
== END 2021-09-26 11:03 | disposition home or self-care (01) ==
LOC: LAB 11:02
PROVIDERS: ATTEND Internal Medicine Cardiovascular Disease
DX: I50.22 Chronic systolic (congestive) heart failure (principal)
CPT/HCPCS: 36415; 80048

== ENCOUNTER 2021-10-25 11:54 | Outpatient (CLI) | payer MEDICARE, OTHER, MEDICAID ==
[2021-10-25 12:03] LABS: BASOPHILS % (AUTO) 0.6 %; EOSINOPHILS # (AUTO) 0.2 10^3/uL (0.0-0.7); EOSINOPHILS % (AUTO) 3.3 %; HCT - HEMATOCRIT 36.7 % (37.0-47.0); HGB - HEMOGLOBIN 11.8 g/dL (12.0-16.0); LYMPHOCYTES # (AUTO) 1.5 10^3/uL (1.5-3.5); LYMPHOCYTES % (AUTO) 29.4 %; MEAN CORPUSCULAR HEMOGLOBIN 30.6 pg (27.0-31.0); MEAN CORPUSCULAR HGB CONC 32.2 g/dL (32.0-36.0); MEAN CORPUSCULAR VOLUME 95.3 fL (81.0-99.0); MEAN PLATELET VOLUME 9.6 fL (7.9-10.8); MONOCYTES # (AUTO) 0.5 10^3/uL (0.0-1.0); MONOCYTES % (AUTO) 9.9 %; NEUTROPHILS # (AUTO) 2.9 10^3/uL (1.5-6.6); NEUTROPHILS % (AUTO) 56.6 %; PLT - PLATELET COUNT 111 10^3/uL (130-450); RED BLOOD COUNT 3.85 10^6/uL (4.20-5.40); RED CELL DISTRIBUTION WIDTH 12.7 % (12.0-15.0); WHITE BLOOD COUNT 5.1 x10^3/uL (4.8-10.8)
[2021-10-25 12:18] LABS: CALCIUM 9.2 mg/dL (8.5-10.3); CREATININE 1.3 mg/dL (0.4-1.0); POTASSIUM 4.7 mmol/L (3.5-5.0)
== END 2021-10-25 23:59 | disposition home or self-care (01) ==
LOC: LAB 11:54
PROVIDERS: ATTEND Internal Medicine Cardiovascular Disease
DX: I25.5 Ischemic cardiomyopathy (principal)
CPT/HCPCS: 36415; 80048; 85025

== ENCOUNTER 2021-12-01 09:58 | Outpatient (CLI) | payer MEDICARE, OTHER, MEDICAID ==
[2021-12-01 10:33] LABS: ALBUMIN 3.6 g/dL (3.2-5.5); ALBUMIN/GLOBULIN RATIO 1.1 (1.0-2.2); ALKALINE PHOSPHATASE 92 IU/L (42-121); ALT ALANINE AMINOTRANSFERASE 19 IU/L (10-60); AST ASPARTATE AMINOTRANSFERASE 23 IU/L (10-42); BILIRUBIN,TOTAL 0.9 mg/dL (0.2-1.0); BUN - BLOOD UREA NITROGEN 27 mg/dL (6-20); CALCIUM 8.8 mg/dL (8.5-10.3); CARBON DIOXIDE - CO2 23 mmol/L (21-32); CHLORIDE 102 mmol/L (101-111); CHOL/HDL RATIO 2.4 (<4.4); CHOLESTEROL 116 mg/dL; CREATININE 1.3 mg/dL (0.4-1.0); GFR - MDRD 39 (>89); GLUCOSE 133 mg/dL (70-100); HDL CHOLESTEROL 48 mg/dL; LDL CHOLESTEROL,CALCULATED 54 mg/dL; LDL/HDL RATIO 1.1 (<4.4); POTASSIUM 4.4 mmol/L (3.5-5.0); SODIUM 132 mmol/L (135-145); TRIGLYCERIDES 68 mg/dL; VLDL CHOLESTEROL 14 mg/dL
[2021-12-01 10:42] LABS: CRP - C-REACTIVE PROTEIN < 1.0 mg/dL (0-1.0)
[2021-12-01 10:56] LABS: RHEUMATOID FACTOR NEGATIVE (Negative)
[2021-12-01 12:45] LABS: ESTIMATED AVERAGE GLUCOSE 157 mg/dL (70-100); HEMOGLOBIN A1c% 7.1 % (4.27-6.07)
[2021-12-04 14:08] LABS: ANTI-DNA (DS) AB QN 4 IU/mL (0-9); CENTROMERE B ANTIBODIES <0.2 AI (0.0-0.9); CHROMATIN ANTIBODIES <0.2 AI (0.0-0.9); JO-1 AB <0.2 AI (0.0-0.9); RIBOSOMAL P ANTIBODIES <0.2 AI (0.0-0.9); RNP ANTIBODIES <0.2 AI (0.0-0.9); SCLERODERMA-70 ANTIBODIES <0.2 AI (0.0-0.9); SJOGREN'S ANTI-SS-A >8.0 AI (0.0-0.9); SJOGREN'S ANTI-SS-B <0.2 AI (0.0-0.9); SMITH ANTIBODIES <0.2 AI (0.0-0.9); SMITH/RNP ANTIBODIES <0.2 AI (0.0-0.9)
[2021-12-04 22:07] LABS: CYCLIC CITRULLINATED PEP IGG/A 5 units (0-19)
== END 2021-12-01 09:59 | disposition home or self-care (01) ==
LOC: LAB 09:58
PROVIDERS: ATTEND Internal Medicine
DX: E11.42 Type 2 diabetes mellitus with diabetic polyneuropathy (principal); E78.5 Hyperlipidemia, unspecified; M06.9 Rheumatoid arthritis, unspecified; I50.22 Chronic systolic (congestive) heart failure
CPT/HCPCS: 36415; 80053; 80061; 83036; 83721; 85651; 86140; 86200; 86225; 86235; 86430

== ENCOUNTER 2022-01-12 08:00 | Outpatient (CLI) | payer MEDICARE, OTHER, MEDICAID | END 2022-01-12 23:59 | disposition home or self-care (01) | LOC: LAB.N 08:00 | PROVIDERS: ATTEND Family Medicine | DX: R30.0 Dysuria (principal) | CPT/HCPCS: 87086 ==

== ENCOUNTER 2022-02-27 21:33 | Outpatient (CLI) | payer MEDICARE, OTHER, MEDICAID | END 2022-02-27 21:34 | disposition critical access hospital (66) | LOC: EMS 21:33 | DX: R10.84 Generalized abdominal pain (principal); R14.0 Abdominal distension (gaseous); R19.8 Other specified symptoms and signs involving the digestive system and abdomen | CPT/HCPCS: A0425; A0429 ==

== ENCOUNTER 2022-02-27 21:36 | Emergency (ER) | payer MEDICARE, OTHER, MEDICAID ==
--- NOTE | 2022-02-27 21:54 | ED Physician Documentation ---
PD HPI ABD PAIN - Stated complaint Stated Complaint: ABD PX - Chief complaint Chief Complaint: Abd Pain - History obtained from History obtained from: Patient - History of Present Illness Timing - onset: How many hours ago (2-3) Timing - details: Abrupt onset Pain level now: 4 Quality: Pain Location: RLQ Radiation: Right flank Improved by: Laying still Worsened by: Moving, Palpation Associated symptoms: Nausea, Constipation. 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 She says she has not had a BM in 3 days but pain did not start until this evening. Mild nausea, no vomiting. Review of Systems Constitutional: denies: Fever, Chills, Sweats Cardiac: reports: Reviewed and negative Respiratory: reports: Reviewed and negative GI: reports: Abdominal Pain, Abdominal Swelling, Nausea, Constipation. 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: Breast cancer, Other : Incontinence, Kidney stones HEENT: Chronic vision loss, Macular degeneration Psych: Anxiety Musculoskeletal: None Derm: None - Past Surgical History Past Surgical History: Yes General: Other /INTERNATIONAL ACCOUNT EXECUTIVE: Hysterectomy, Oophrectomy, Mastectomy, Breast implants Cardiovascular: CABG, Coronary stent, AICD - Present Medications Home Medications: Ambulatory Orders Medication Instructions Recorded Confirmed Aspirin Chewable [St Eleazar 81 mg PO DAILY 05/03/17 09/06/21 Aspirin] Atorvastatin Calcium 80 mg PO QPM 05/03/17 09/06/21 Isosorbide Mononitrate [Isosorbide 30 mg PO DAILY 05/03/17 09/06/21 Mononitrate ER] Losartan Potassium 25 mg PO QPM 05/03/17 09/06/21 carvediloL [Carvedilol] 6.25 mg PO BID 05/03/17 09/06/21 Insulin Glargine [Lantus Solostar] 20 unit SUBQ QPM 06/20/17 09/06/21 Oxybutynin Chloride [Ditropan Xl] 5 mg PO DAILY 06/20/17 09/06/21 Insulin Lispro [Humalog Kwikpen] 3 unit SQ TIDWM 07/26/17 09/06/21 Acetaminophen [Tylenol Extra 1,000 mg PO QPM 01/15/19 09/06/21 Strength] [place]-3/Dha/Epa/Fish Oil [[place] 3 1 each PO DAILY 01/15/19 09/06/21 500 Softgel] Furosemide [Lasix] 20 mg PO DAILY 09/06/21 09/06/21 Linaclotide [Linzess] 145 mcg PO DAILY 09/06/21 09/06/21 Spironolactone [Aldactone] 12.5 mg PO DAILY 09/06/21 09/06/21 Wheat Dextrin [Benefiber] 1 each PO DAILY 09/06/21 09/06/21 - Allergies Allergies/Adverse Reactions: Allergies Allergy/AdvReac Type Severity Reaction Status Date / Time hydromorphone [From Dilaudid] Allergy Severe Itching Verified 02/27/22 21:51 Penicillins Allergy Severe Rash Verified 02/27/22 21:51 lisinopril AdvReac Severe cough Verified 02/27/22 21:51 metformin AdvReac Severe Emesis Verified 02/27/22 21:51 - Social History Does the pt smoke?: No Smoking Status: Never smoker Does the pt drink ETOH?: No Does the pt have substance abuse?: No - Immunizations Immunizations are current?: Yes - POLST Patient has POLST: Yes PD ED PE NORMAL - Vitals Vital signs reviewed: Yes - General General: Alert and oriented X 3, No acute distress, Well developed/nourished - HEENT HEENT: Moist mucous membranes - Neck Neck: Supple, no meningeal sign - Cardiac Cardiac: RRR, No murmur - Respiratory Respiratory: No respiratory distress, Clear bilaterally - Abdomen Abdomen: Normal bowel sounds, Soft, Non distended, Other (diffuse but mild TTP without rebound or guarding) - Back Back: No CVA TTP - Derm Derm: Normal color, Warm and dry - Extremities Extremities: No edema Results - Vitals Vitals: Vital Signs - 24 hr 02/27/22 02/27/22 02/27/22 21:48 21:51 22:50 Temperature 36.9 C 36.9 C Heart Rate 55 L 55 L 60 Respiratory 19 19 18 Rate Blood Pressure 159/94 H 159/94 H 134/65 H O2 Saturation 75 L 75 L 98 02/28/22 02/28/22 02/28/22 00:00 02:00 04:00 Temperature Heart Rate 60 66 63 Respiratory 16 13 13 Rate Blood Pressure 115/55 L 132/63 H 140/61 H O2 Saturation 96 100 97 02/28/22 02/28/22 06:00 08:57 Temperature 36.7 C Heart Rate 60 75 Respiratory 12 16 Rate Blood Pressure 110/59 L 115/86 H O2 Saturation 99 98 Oxygen O2 Source Room air - Labs Labs: Laboratory Tests 02/27/22 02/27/22 02/28/22 22:00 22:00 02:34 WBC 6.3 RBC 4.35 Hgb 13.4 Hct 41.8 MCV 96.1 MCH 30.8 MCHC 32.1 RDW 12.8 Plt Count 138 MPV 10.2 Neut # (Auto) 3.5 Lymph # (Auto) 1.9 [place] # (Auto) 0.6 Eos # (Auto) 0.2 Baso # (Auto) 0.0 Absolute Nucleated RBC 0.00 Nucleated RBC % 0.0 Sodium 140 Potassium 4.3 Chloride 108 Carbon Dioxide 22 Anion Gap 10.0 BUN 31 H Creatinine 1.3 H Estimated GFR (MDRD) 39 L Glucose 119 H Calcium 9.2 Total Bilirubin 0.8 AST 26 ALT 17 Alkaline Phosphatase 89 Total Protein 7.6 Albumin 4.1 Globulin 3.5 Albumin/Globulin Ratio 1.2 Lipase 32 Urine Color YELLOW Urine Clarity CLEAR Urine pH 5.5 Ur Specific [place] <=1.005 Urine Protein NEGATIVE Urine Glucose (UA) >=1000 H Urine Ketones NEGATIVE Urine Occult Blood NEGATIVE Urine Nitrite NEGATIVE Urine Bilirubin NEGATIVE Urine Urobilinogen 0.2 (NORMAL) Ur Leukocyte Esterase NEGATIVE Ur Microscopic Review NOT INDICATED Urine Culture Comments NOT INDICATED - Rads (name of study) CT A/P Radiology: Prelim report reviewed, See rad report PD MEDICAL DECISION MAKING - ED course Complexity details: reviewed results, re-evaluated patient, considered differential, d/w patient ED course: unremarkable blood tests and UA (mildly elevated bun, creatinine; both approximate her baseline). CT A/P without clear cause of her pain. Gallstone noted but her pain c/o and the tenderness is not localized to RUQ and LFTs are unremarkable. There is moderate amount of stool, raising possibility of constipation . She says she has this problem on a chronic basis, says she frequently uses magnesium citrate, stool softeners, and linzess. She also says she has painful hemorrhoids, making BM more uncomfortable than simple constipation. I recommended she try fleets enema with mineral oil, and she says she "buys them as a six-pack". There is no emergent medical condition at this time, and I recommended she follow up with primary care provider , return if worse. She says she is in the process of being referred to GI Departure - Departure Disposition: Home, Self Care Clinical Impression: Abdominal pain Qualifiers: Abdominal location: generalized Qualified Code(s): R10.84 - Generalized abdominal pain Condition: Good Instructions: ED Abdominal Pain Female Non-Specific Abdominal Pain, ED Constipation Follow-Up: Moose Kelly MD [Primary Care Provider] - Comments: The results of tonight's tests are unremarkable. The cause of your abdominal discomfort is not apparent at this time. There is a gallstone noted in your gallbladder, although there is no evidence on CT that this is causing the pain (no evidence of obstruction of the gallbladder). You also have a moderate amount of stool throughout your colon and thus constipation could also be playing a role in the discomfort. Discharge Date/Time: 02/28/22 08:59
[2022-02-27] MEDS ORDERED: MORPHINE 2 MG/ML CARPUJECT IVP STA ×2 (22:11→22:55)
[2022-02-27] MEDS ORDERED: ONDANSETRON 4 MG/2 ML VIAL IVP STA (22:11)
[2022-02-27] MEDS ORDERED: SODIUM CHLORIDE 0.9% 500 ML IV STA (22:12)
[2022-02-27 22:22] LABS: BASOPHILS % (AUTO) 0.6 %; EOSINOPHILS # (AUTO) 0.2 10^3/uL (0.0-0.7); EOSINOPHILS % (AUTO) 3.5 %; HCT - HEMATOCRIT 41.8 % (37.0-47.0); HGB - HEMOGLOBIN 13.4 g/dL (12.0-16.0); LYMPHOCYTES # (AUTO) 1.9 10^3/uL (1.5-3.5); LYMPHOCYTES % (AUTO) 30.6 %; MEAN CORPUSCULAR HEMOGLOBIN 30.8 pg (27.0-31.0); MEAN CORPUSCULAR HGB CONC 32.1 g/dL (32.0-36.0); MEAN CORPUSCULAR VOLUME 96.1 fL (81.0-99.0); MEAN PLATELET VOLUME 10.2 fL (7.9-10.8); MONOCYTES # (AUTO) 0.6 10^3/uL (0.0-1.0); MONOCYTES % (AUTO) 9.3 %; NEUTROPHILS # (AUTO) 3.5 10^3/uL (1.5-6.6); NEUTROPHILS % (AUTO) 55.8 %; PLT - PLATELET COUNT 138 10^3/uL (130-450); RED BLOOD COUNT 4.35 10^6/uL (4.20-5.40); RED CELL DISTRIBUTION WIDTH 12.8 % (12.0-15.0); WHITE BLOOD COUNT 6.3 x10^3/uL (4.8-10.8)
--- OUTSIDE RECORDS SUMMARY | 2022-02-27 22:28 | EXTERNAL MEDICAL SUMMARY RPT | Continuity of Care Document ---
:1940 Author Organization [place] Address [address] [place] [address] Phone Allergies No information. Encounters No information. Functional Status No information. Immunizations No information. Medications No information. Problems No information. Procedures No information. Results/Labs test date author facility value unit interpret ation Result panel 1 (unknown) (no (unknown) (unknown) (no value) (units (unk nown) date) unknown) (unknown) (no (unknown) (unknown) [address] [place] [address] (units (unknown) date) unknown) (unknown) (no (unknown) (unknown) [place], [place] (units ( unknown) date) [id number] unknown) (unknown) (no (unknown) (unknown) [facility] (units (unknown) date) unknown) (unknown) (no (unknown) (unknown) Signed (units (unkno wn) date) unknown) (unknown) (no (unknown) (unknown) Ultrasound (units (unk nown) date) Report unknown) (unknown) (no (unknown) (unknown) (no value) (units (unk nown) date) unknown) (unknown) (no (unknown) (unknown) 02/14/22 (units (unkno wn) date) unknown) (unknown) (no (unknown) (unknown) 1. No evidence (units (unknown) date) of inflow unknown) stenosis, based on common femoral waveforms. (unknown) (no (unknown) (unknown) 2. Diffuse (units (unk nown) date) bilateral plaque. unknown) (unknown) (no (unknown) (unknown) 3. On the right, (units (unknown) date) there is a focal unknown) mid SFA stenosis of 50% or greater. (unknown) (no (unknown) (unknown) 4. Bilateral (units (u nknown) date) small vessel unknown) disease. (unknown) (no (unknown) (unknown) Anterior tibial (units (unknown) date) artery/dorsalis unknown) pedis: 130 cm/sec, with monophasic flow. (unknown) (no (unknown) (unknown) Anterior tibial (units (unknown) date) artery/dorsalis unknown) pedis: Occluded (unknown) (no (unknown) (unknown) Approved by: (units (u nknown) date) Jeff Bush, alfredito) Roger on 02/14/2022 at 13:26 (unknown) (no (unknown) (unknown) COMPARISON: (units (un known) date) None. unknown) (unknown) (no (unknown) (unknown) Color and pulse (units (unknown) date) Doppler unknown) interrogation was performed of both lower extremity (unknown) (no (unknown) (unknown) Common femoral (units (unknown) date) artery: 110 unknown) cm/sec, with biphasic flow. (unknown) (no (unknown) (unknown) Common femoral (units (unknown) date) artery: 78 unknown) cm/sec, with biphasic flow. (unknown) (no (unknown) (unknown) Deep femoral (units (u nknown) date) artery: 64 unknown) cm/sec, with biphasic flow. (unknown) (no (unknown) (unknown) Deep femoral (units (u nknown) date) artery: 67 unknown) cm/sec, with biphasic flow. (unknown) (no (unknown) (unknown) Dictated by: (units (u nknown) date) Jeff Bush, unknown) Roger on 02/14/2022 at 13:17 (unknown) (no (unknown) (unknown) Distal (units (unkno wn) date) superficial unknown) femoral artery: 40 cm/sec, with biphasic flow. (unknown) (no (unknown) (unknown) Distal (units (unkno wn) date) superficial unknown) femoral artery: 60 cm/sec, with biphasic flow. (unknown) (no (unknown) (unknown) FINDINGS: (units (unkn own) date) unknown) (unknown) (no (unknown) (unknown) Edwards-scale (units (unk nown) date) imaging unknown) description: Diffuse plaque. No focal significant stenosis (unknown) (no (unknown) (unknown) Edwards-scale (units (unk nown) date) imaging unknown) description: Diffuse plaque. Stenosis of the mid SFA with (unknown) (no (unknown) (unknown) IMPRESSION: (units (un known) date) unknown) (unknown) (no (unknown) (unknown) INDICATIONS: (units (u nknown) date) PAIN IN LEGS unknown) (unknown) (no (unknown) (unknown) Left lower (units (unk nown) date) extremity: unknown) (unknown) (no (unknown) (unknown) Mid superficial (units (unknown) date) femoral artery: unknown) 157 cm/sec, with biphasic flow. (unknown) (no (unknown) (unknown) Mid superficial (units (unknown) date) femoral artery: unknown) 73 cm/sec, with biphasic flow. (unknown) (no (unknown) (unknown) Popliteal (units (unkn own) date) artery: 41 unknown) cm/sec, with biphasic flow. (unknown) (no (unknown) (unknown) Popliteal (units (unkn own) date) artery: 78 unknown) cm/sec, with biphasic flow. (unknown) (no (unknown) (unknown) Posterior tibial (units (unknown) date) artery: 100 unknown) cm/sec, with biphasic flow. (unknown) (no (unknown) (unknown) Posterior tibial (units (unknown) date) artery: 106 unknown) cm/sec, with monophasic flow. (unknown) (no (unknown) (unknown) Proximal (units (unkno wn) date) superficial unknown) femoral artery: 67 cm/sec, with biphasic flow. (unknown) (no (unknown) (unknown) Proximal (units (unkno wn) date) superficial unknown) femoral artery: 68 cm/sec, with biphasic flow. (unknown) (no (unknown) (unknown) Right lower (units (un known) date) extremity: unknown) (unknown) (no (unknown) (unknown) TECHNIQUE: (units (unk nown) date) unknown) (unknown) (no (unknown) (unknown) common femoral (units (unknown) date) through the unknown) popliteal. Distal runoff disease. (unknown) (no (unknown) (unknown) elevation, (units (unk nown) date) indicating a 50% unknown) or greater stenosis. Occluded anterior tibial. (unknown) (no (unknown) (unknown) systems, with (units ( unknown) date) image unknown) documentation. (unknown) (no (unknown) (unknown) [id number] (units (unkno wn) date) unknown) (unknown) (no (unknown) (unknown) Accession (units (unkn own) date) Number: unknown) [id number] (unknown) (no (unknown) (unknown) Age/Sex: 82 / F (units (unknown) date) Date of unknown) Service: (unknown) (no (unknown) (unknown) : 1940 (units (unknown) date) Acct:[id number] unknown) (unknown) (no (unknown) (unknown) Loc: [place] (units (unkno wn) date) unknown) (unknown) (no (unknown) (unknown) Ordering (units (unkno wn) date) Provider: unknown) Carine Cole MD (unknown) (no (unknown) (unknown) PROCEDURE: US (units (unknown) date) ARTERIAL DUPLEX unknown) LE BI (unknown) (no (unknown) (unknown) Patient: (units (unkno wn) date) Stacie Kimble L unknown) MR#: [id number] (unknown) (no (unknown) (unknown) Procedure: US (units ( unknown) date) arterial duplex unknown) LE BI (unknown) (no (unknown) (unknown) arterial (units (unkno wn) date) unknown) (unknown) (no (unknown) (unknown) from the (units (unkno wn) date) unknown) (unknown) (no (unknown) (unknown) velocity (units (unkno wn) date) unknown) Social History No information. Vital Signs No information.
[2022-02-27] MEDS ORDERED: DIATRIZOATE MEGLU/DIATRIZO SOD 30 ML BOTTLE PO ONE (22:51)
[2022-02-27 22:53] LABS: ALBUMIN 4.1 g/dL (3.2-5.5); ALBUMIN/GLOBULIN RATIO 1.2 (1.0-2.2); BILIRUBIN,TOTAL 0.8 mg/dL (0.2-1.0); CALCIUM 9.2 mg/dL (8.5-10.3); CREATININE 1.3 mg/dL (0.4-1.0); POTASSIUM 4.3 mmol/L (3.5-5.0); TOTAL PROTEIN 7.6 g/dL (6.7-8.2)
[2022-02-28] MEDS ORDERED: DEXTROSE 50% ABBOJECT 25 GM/50 ML SYRINGE IVP STA (01:18)
--- NOTE | 2022-02-28 01:48 | CT Report ---
PROCEDURE: Abdomen/Pelvis W INDICATIONS: right-sided abdominal pain CONTRAST: IV CONTRAST: Optiray 320 ml: 100 PO CONTRAST: Optiray 320 ml30 TECHNIQUE: After the administration of intravenous contrast, 5 mm thick sections acquired from the diaphragms to the symphysis. 5 mm thick coronal and sagittal reformats were acquired. For radiation dose reducti on, the following was used: automated exposure control, adjustment of mA and/or kV according to tavia ent size. COMPARISON: None. FINDINGS: Image quality: Excellent. Lung bases:There is mild dependent atelectasis bilaterally. Heart: Heart size is enlarged. There is a small hiatal hernia. ABDOMEN: Liver: No mass lesion. Gallbladder:There is a calcified gallstone in the region of the gallbladder neck. No gallbladder wal l thickening or pericholecystic fluid. Biliary ducts:There is mild intra and extra hepatic biliary ductal dilatation. No calcified common d uct stone or discrete obstructing mass visualized. Pancreas: No pancreatic duct dilatation or discrete pancreatic mass identified. Spleen: Normal in size. Adrenal Glands: No adrenal nodules. Kidneys and Ureters: No hydronephrosis. Stomach and Bowel: Stomach and small bowel loops are normal in caliber and wall thickness. No perice arely inflammatory changes to suggest appendicitis. There is colonic diverticulosis without acute diver ticulitis. There is moderate stool distention in the rectosigmoid colon. Peritoneum: No abnormal intraperitoneal fluid. No free air. Ventral Wall: No hernia. Abdominal Nodes: No retroperitoneal or mesenteric adenopathy by size criteria. Vessels: Aorta and inferior vena cava are normal in size. PELVIS: Pelvic Organs:The uterus is surgically absent. Bladder:There is prominent enlargement of the bladder. Pelvic Nodes: No enlarged lymph nodes. Miscellaneous: No inguinal hernias are seen. Bones: There are postsurgical changes status post posterior laminectomies and fusion at L3-L5. Multi level exam changes including severe degenerative disc disease demonstrated at L5-S1. Visualized osseo us structures demonstrate no suspicious focal lesions. IMPRESSION: 1. No pericecal inflammatory changes to suggest acute appendicitis. 2. Cholelithiasis without CT evidence of acute cholecystitis. 3. Mild intra and extra hepatic biliary ductal dilatation without a calcified obstructing stone visua lized. Recommend correlation with laboratory values and if indicated further evaluation with ultrasou nd. 4. Colonic diverticulosis without acute diverticulitis. 5. Moderate colonic stool distention in the rectosigmoid colon suggestive of constipation or impactio n. Reviewed by: Anmol Parker MD on 02/28/2022 1:47 AM PDT Approved by: Anmol Parker MD on 02/28/2022 1:47 AM PDT Station ID: [id number]
[2022-02-28 02:44] LABS: BILIRUBIN,URINE NEGATIVE (NEGATIVE); GLUCOSE, URINE (UA) >=1000 mg/dL (NEGATIVE); KETONES,URINE (UA) NEGATIVE (NEGATIVE); LEUKOCYTE ESTERASE, URINE NEGATIVE (NEGATIVE); NITRITE,URINE NEGATIVE (NEGATIVE); OCCULT BLOOD,URINE NEGATIVE (NEGATIVE); PH,URINE 5.5 PH (5.0-7.5); PROTEIN,URINE NEGATIVE (NEGATIVE); UROBILINOGEN,URINE 0.2 (NORMAL) E.U./dL (NORMAL)
[2022-02-28 02:46] LABS: CLARITY,URINE CLEAR (CLEAR)
[2022-02-28] MEDS ORDERED: DIATRIZOATE MEGLU/DIATRIZO SOD 30 ML BOTTLE PO ONE (04:07)
[2022-02-28] MEDS ORDERED: MORPHINE 2 MG/ML CARPUJECT IVP STA (06:59)
[2022-02-28 08:59] VITALS: BP 115/86
== END 2022-02-28 08:59 | disposition home or self-care (01) ==
LOC: EDUNIT# → EDBD → ED 21:36
DX: R10.84 Generalized abdominal pain (principal)
CPT/HCPCS: 36415; 74177; 80053; 81003; 83690; 85025; 93005; 96374; 96375; 96376; 99282; 99284; Q9963; Q9967; 81001; 87086

== ENCOUNTER 2022-08-27 10:10 | Outpatient (CLI) | payer MEDICARE, OTHER, MEDICAID ==
[2022-08-27 10:39] LABS: CALCIUM 9.3 mg/dL (8.5-10.3); CREATININE 1.2 mg/dL (0.4-1.0); POTASSIUM 4.4 mmol/L (3.5-5.0)
== END 2022-08-27 10:11 | disposition home or self-care (01) ==
LOC: LAB 10:10
PROVIDERS: ATTEND Internal Medicine Cardiovascular Disease
DX: I25.10 Atherosclerotic heart disease of native coronary artery without angina pectoris (principal)
CPT/HCPCS: 36415; 80048

== ENCOUNTER 2022-10-05 10:10 | Outpatient (CLI) | payer MEDICARE, OTHER, MEDICAID ==
[2022-10-05 10:28] LABS: CREATININE 1.4 mg/dL (0.4-1.0); POTASSIUM 4.4 mmol/L (3.5-5.0)
[2022-10-05 12:09] LABS: ESTIMATED AVERAGE GLUCOSE 146 mg/dL (70-100); HEMOGLOBIN A1c% 6.7 % (4.27-6.07)
== END 2022-10-05 10:11 | disposition home or self-care (01) ==
LOC: LAB 10:10
PROVIDERS: ATTEND Internal Medicine
DX: E11.42 Type 2 diabetes mellitus with diabetic polyneuropathy (principal)
CPT/HCPCS: 36415; 80048; 83036

== ENCOUNTER 2022-12-11 20:46 | Outpatient (CLI) | payer MEDICARE, OTHER, MEDICAID | END 2022-12-11 20:47 | disposition critical access hospital (66) | LOC: EMS 20:46 | DX: R07.9 Chest pain, unspecified (principal); Z95.0 Presence of cardiac pacemaker | CPT/HCPCS: A0425; A0429 ==

== ENCOUNTER 2022-12-11 20:51 | Emergency (ER) | payer MEDICARE, OTHER, MEDICAID ==
--- NOTE | 2022-12-11 21:42 | ED Physician Documentation ---
PD HPI CHEST PAIN - Stated complaint Stated Complaint: CHEST PX - Chief complaint Chief Complaint: Cardiac - History obtained from History obtained from: Patient - Additional information Additional information: HPI from patient. Patient says that tonight, after eating dinner, she developed midline anterior low chest pain that radiated to the right chest. This was approximately 30 minutes prior to arrival to the emergency department. The pain rapidly became associated with diaphoresis, generalized weakness, nausea. She took 324 mg of aspirin and used one of her nitroglycerin (0.4 mg sublingual nitroglycerin). These measures resulted in relief of her symptoms. By the time of my H&P, patient is asymptomatic. Patient's past medical history includes AL, CABG x2, PPM. Review of Systems Constitutional: reports: Sweats Cardiac: reports: Chest pain / pressure. denies: Palpitations, Pedal edema, Calf pain Respiratory: denies: Dyspnea, Cough GI: reports: Nausea. 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: Hysterectomy, Oophrectomy, Mastectomy, Breast implants Cardiovascular: CABG, Coronary stent, AICD - Present Medications Home Medications: Ambulatory Orders Medication Instructions Recorded Confirmed Aspirin Chewable [St Eleazar 81 mg PO DAILY 05/03/17 09/07/22 Aspirin] Atorvastatin Calcium 80 mg PO QPM 05/03/17 09/07/22 Insulin Glargine [Lantus Solostar] 8 unit SUBQ QPM 06/20/17 09/07/22 Oxybutynin Chloride [Ditropan Xl] 5 mg PO DAILY 06/20/17 09/07/22 Insulin Lispro [Humalog Kwikpen] 1 - 3 unit SQ TIDWM 07/26/17 09/07/22 Acetaminophen [Tylenol Extra 1,000 mg PO QPM 01/15/19 09/07/22 Strength] [place]-3/Dha/Epa/Fish Oil [[place] 3 1 each PO DAILY 01/15/19 09/07/22 500 Softgel] Furosemide [Lasix] 20 mg PO DAILY 09/06/21 09/07/22 Linaclotide [Linzess] 75 mcg PO DAILY 09/06/21 09/07/22 Spironolactone [Aldactone] 12.5 mg PO DAILY 09/06/21 09/07/22 Cyclosporine [Restasis Multidose] 5.5 ml OP DAILY 09/07/22 09/07/22 Empagliflozin [Jardiance] 10 mg PO DAILY 09/07/22 09/07/22 Gabapentin [Neurontin] 100 - 300 mg PO HS 09/07/22 09/07/22 Hydroxychloroquine [Plaquenil] 200 mg PO DAILY 09/07/22 09/07/22 Metoprolol Succinate [Toprol Xl] 50 mg PO DAILY 09/07/22 09/07/22 Nitroglycerin [Nitrostat] 0.3 mg SL PRN PRN 09/07/22 09/07/22 Sacubitril/Valsartan [Entresto 24 1 tab PO BIDWM 09/07/22 09/07/22 mg-26 mg Tablet] polyethylene glycoL 3350 8.5 gm PO BID 09/07/22 09/07/22 [Polyethylene Glycol 3350] - Allergies Allergies/Adverse Reactions: Allergies Allergy/AdvReac Type Severity Reaction Status Date / Time hydromorphone [From Dilaudid] Allergy Severe Itching Verified 02/27/22 21:51 Penicillins Allergy Severe Rash Verified 02/27/22 21:51 lisinopril AdvReac Severe cough Verified 02/27/22 21:51 metformin AdvReac Severe Emesis Verified 02/27/22 21:51 - Social History Does the pt smoke?: No Smoking Status: Never smoker Does the pt drink ETOH?: No Does the pt have substance abuse?: No - Immunizations Immunizations are current?: Yes - POLST Patient has POLST: Yes PD ED PE NORMAL - Vitals Vital signs reviewed: Yes - General General: Alert and oriented X 3, No acute distress, Well developed/nourished - HEENT HEENT: Moist mucous membranes - Cardiac Cardiac: RRR - Respiratory Respiratory: No respiratory distress, Clear bilaterally - Abdomen Abdomen: Soft, Non tender - Derm Derm: Normal color, Warm and dry - Extremities Extremities: No edema - Neuro Neuro: Alert and oriented X 3 PD ED PE EXPANDED - Cardiac Cardiac: Murmur Present Results - Vitals Vitals: Vital Signs - 24 hr 12/12/22 05:13 Heart Rate 65 Respiratory 15 Rate Blood Pressure 126/63 O2 Saturation 95 Oxygen O2 Source Room air - EKG (time done) No standard instances EKG releavant findings:: EKG personally interpreted by author of this note. Relevant findings are: Rate: Rate (enter#) (64) Rhythm: Paced (atrial) Compare to prior EKG: Unchanged from prior EKG (no change compared to 02/27/22, 09/08/21) - Labs Labs: Laboratory Tests 12/11/22 12/11/22 12/11/22 21:00 21:00 21:00 WBC 6.9 RBC 4.30 Hgb 12.6 Hct 39.5 MCV 91.9 MCH 29.3 MCHC 31.9 L RDW 13.2 Plt Count 117 L MPV 11.8 H Neut # (Auto) 4.1 Lymph # (Auto) 2.0 [place] # (Auto) 0.6 Eos # (Auto) 0.2 Baso # (Auto) 0.0 Absolute Nucleated RBC 0.00 Nucleated RBC % 0.0 Sodium 139 Potassium 4.3 Chloride 108 Carbon Dioxide 24 Anion Gap 7.0 BUN 28 H Creatinine 1.3 H Estimated GFR (MDRD) 39 L Glucose 170 H Calcium 8.6 Total Bilirubin 0.7 AST 24 ALT 16 Alkaline Phosphatase 68 Troponin I High Sens 16.8 H* Total Protein 6.8 Albumin 3.4 Globulin 3.4 Albumin/Globulin Ratio 1.0 Lipase 32 12/12/22 01:56 WBC RBC Hgb Hct MCV MCH MCHC RDW Plt Count MPV Neut # (Auto) Lymph # (Auto) [place] # (Auto) Eos # (Auto) Baso # (Auto) Absolute Nucleated RBC Nucleated RBC % Sodium Potassium Chloride Carbon Dioxide Anion Gap BUN Creatinine Estimated GFR (MDRD) Glucose Calcium Total Bilirubin AST ALT Alkaline Phosphatase Troponin I High Sens 15.8 H* Total Protein Albumin Globulin Albumin/Globulin Ratio Lipase - Rads (name of study) chest xray Relevant Findings:: Prelim report reviewed, See rad report PD Medical Decision Making - ED course Complexity details: reviewed results, re-evaluated patient, considered differential, d/w patient ED course: Tests ordered and results reviewed by me: EKG, CXR, CBC, ER abdominal panel, hs- cTn. No concerning nor diagnostic findings on these tests. The hs-cTn is very mildly above normal limits, 16.8, but 2 hour repeat is 15.8. Creatinine mildly elevated at 1.3, but comparable to baseline using previous results for comparison. Results are d/w patient, return precautions reviewed, advised to contact PMD and manager furniture to arrange for next available appointment for reevaluation. Departure - Departure Disposition: 01 Home, Self Care Clinical Impression: Near syncope Chest pain Qualifiers: Chest pain type: unspecified Qualified Code(s): R07.9 - Chest pain, unspecified Condition: Good Instructions: ED Chest Pain Atypical Unkn Cause, ED Near Syncope Unkn Follow-Up: Moose Kelly MD [Primary Care Provider] - Within 1 week Comments: There were no concerning or diagnostic findings on tonight's tests. As we discussed, your cardiac enzyme blood test was very slightly above the normal range, but not nearly enough to be of a concerning extent. Nonetheless, a repeat of the same blood test was performed after a few hours, and the result was slightly decreased from the previous result although still in abnormal range. This is very reassuring; generally, acute coronary events such as angina or heart attack resulted in a cardiac enzyme blood test that is not only elevated, but continues to elevate over the course of many hours sometimes over the course of a few days. The cause of your chest pain and the episode of nearly passing out is not apparent at this time. As we discussed, I strongly recommend that you contact your primary care provider in the morning when the office opens to arrange for next available appointment. Discharge Date/Time: 12/12/22 05:26
[2022-12-11 22:10] LABS: BASOPHILS % (AUTO) 0.6 %; EOSINOPHILS # (AUTO) 0.2 10^3/uL (0.0-0.7); EOSINOPHILS % (AUTO) 3.2 %; HCT - HEMATOCRIT 39.5 % (37.0-47.0); HGB - HEMOGLOBIN 12.6 g/dL (12.0-16.0); LYMPHOCYTES % (AUTO) 28.8 %; MEAN CORPUSCULAR HEMOGLOBIN 29.3 pg (27.0-31.0); MEAN CORPUSCULAR HGB CONC 31.9 g/dL (32.0-36.0); MEAN CORPUSCULAR VOLUME 91.9 fL (81.0-99.0); MEAN PLATELET VOLUME 11.8 fL (7.9-10.8); MONOCYTES # (AUTO) 0.6 10^3/uL (0.0-1.0); MONOCYTES % (AUTO) 8.8 %; NEUTROPHILS # (AUTO) 4.1 10^3/uL (1.5-6.6); NEUTROPHILS % (AUTO) 58.3 %; PLT - PLATELET COUNT 117 10^3/uL (130-450); RED CELL DISTRIBUTION WIDTH 13.2 % (12.0-15.0); WHITE BLOOD COUNT 6.9 x10^3/uL (4.8-10.8)
[2022-12-11 22:14] LABS: ALBUMIN 3.4 g/dL (3.2-5.5); BILIRUBIN,TOTAL 0.7 mg/dL (0.2-1.0); CALCIUM 8.6 mg/dL (8.5-10.3); CREATININE 1.3 mg/dL (0.4-1.0); POTASSIUM 4.3 mmol/L (3.5-5.0); TOTAL PROTEIN 6.8 g/dL (6.7-8.2)
--- NOTE | 2022-12-12 01:14 | XRAY Report ---
PROCEDURE: Chest 2 View X-Ray INDICATIONS: chest pain TECHNIQUE: 2 views of the chest were acquired. COMPARISON: 09/08/2021, 07/31/2019. FINDINGS: Surgical changes and devices: Left chest wall ICD and postsurgical changes in mediastinum redemonstr ated. Lungs and pleura: No pleural effusions or pneumothorax. Visualized lungs demonstrate no acute consol idation. There is a circumscribed nodule in the right midlung which appears stable in size compared t o the prior studies. Mediastinum: Mediastinal contours appear unchanged. Heart size is normal. Bones and chest wall: No suspicious bony lesions. Overlying soft tissues appear unremarkable. IMPRESSION: 1. No acute cardiopulmonary disease. 2. Right midlung circumscribed nodule appears stable in size compared to the prior studies. Reviewed by: Anmol Parker MD on 12/12/2022 1:13 AM PDT Approved by: Anmol Parker MD on 12/12/2022 1:13 AM PDT Station ID: [id number]
[2022-12-12 05:19] VITALS: BP 126/63
== END 2022-12-12 05:26 | disposition home or self-care (01) ==
LOC: EDUNIT# → ED 20:51
DX: R07.9 Chest pain, unspecified (principal); R55 Syncope and collapse; E11.9 Type 2 diabetes mellitus without complications; Z79.4 Long term (current) use of insulin; Z95.1 Presence of aortocoronary bypass graft
CPT/HCPCS: 36415; 80053; 83690; 84484; 85025; 93005; 99283; 99284

== ENCOUNTER 2023-02-16 10:01 | Outpatient (CLI) | payer MEDICARE, OTHER ==
[2023-02-16 10:31] LABS: CALCIUM 9.3 mg/dL (8.5-10.3); CREATININE 1.2 mg/dL (0.6-1.3); POTASSIUM 4.3 mmol/L (3.5-4.5)
[2023-02-16 12:41] LABS: ESTIMATED AVERAGE GLUCOSE 151 mg/dL (70-100); HEMOGLOBIN A1c% 6.9 % (4.27-6.07)
== END 2023-02-16 10:02 | disposition home or self-care (01) ==
LOC: LAB 10:01
PROVIDERS: ATTEND Internal Medicine
DX: E11.42 Type 2 diabetes mellitus with diabetic polyneuropathy (principal); I25.5 Ischemic cardiomyopathy
CPT/HCPCS: 36415; 80048; 83036

== ENCOUNTER 2023-02-21 09:40 | Outpatient (CLI) | payer MEDICARE, OTHER ==
[2023-02-21 09:55] LABS: BASOPHILS % (AUTO) 0.8 %; EOSINOPHILS # (AUTO) 0.2 10^3/uL (0.0-0.7); EOSINOPHILS % (AUTO) 3.4 %; HCT - HEMATOCRIT 39.8 % (37.0-47.0); HGB - HEMOGLOBIN 12.3 g/dL (12.0-16.0); LYMPHOCYTES # (AUTO) 1.6 10^3/uL (1.5-3.5); MEAN CORPUSCULAR HEMOGLOBIN 29.4 pg (27.0-31.0); MEAN CORPUSCULAR HGB CONC 30.9 g/dL (32.0-36.0); MEAN PLATELET VOLUME 10.3 fL (7.9-10.8); MONOCYTES # (AUTO) 0.4 10^3/uL (0.0-1.0); NEUTROPHILS % (AUTO) 56.6 %; PLT - PLATELET COUNT 121 10^3/uL (130-450); RED BLOOD COUNT 4.19 10^6/uL (4.20-5.40); RED CELL DISTRIBUTION WIDTH 13.5 % (12.0-15.0); WHITE BLOOD COUNT 5.3 x10^3/uL (4.8-10.8)
[2023-02-21 10:05] LABS: BUN - BLOOD UREA NITROGEN 25 mg/dL (6-20); CALCIUM 9.5 mg/dL (8.5-10.3); CARBON DIOXIDE - CO2 24 mmol/L (21-32); CHLORIDE 110 mmol/L (101-111); CHOL/HDL RATIO 2.5 (<4.4); CHOLESTEROL 109 mg/dL; CREATININE 1.3 mg/dL (0.6-1.3); GFR - MDRD 39 (>89); GLUCOSE 131 mg/dL (74-104); HDL CHOLESTEROL 43 mg/dL; LDL CHOLESTEROL,CALCULATED 51 mg/dL; LDL/HDL RATIO 1.2 (<4.4); POTASSIUM 4.3 mmol/L (3.5-4.5); SODIUM 139 mmol/L (135-145); TRIGLYCERIDES 73 mg/dL (48-352); VLDL CHOLESTEROL 15 mg/dL
== END 2023-02-21 09:41 | disposition home or self-care (01) ==
LOC: LAB 09:40
PROVIDERS: ATTEND Internal Medicine Cardiovascular Disease
DX: I25.10 Atherosclerotic heart disease of native coronary artery without angina pectoris (principal)
CPT/HCPCS: 36415; 80048; 80061; 83721; 85025

== ENCOUNTER 2023-03-26 08:00 | Outpatient (CLI) | payer MEDICARE, OTHER ==
[2023-03-26 16:50] LABS: BACTERIAL VAGINOSIS DNA NEGATIVE (NEGATIVE); CANDIDA KRUSEI DNA NEGATIVE (NEGATIVE); TRICHOMONAS VAGINALIS DNA NEGATIVE (NEGATIVE)
[2023-03-26 16:51] LABS: CANDIDA GLABRATA DNA POSITIVE (NEGATIVE); CANDIDA GROUP DNA POSITIVE (NEGATIVE)
== END 2023-03-26 23:59 | disposition home or self-care (01) ==
LOC: LAB.WCP 08:00
PROVIDERS: ATTEND Physician Assistant
DX: L30.4 Erythema intertrigo (principal); N77.1 Vaginitis, vulvitis and vulvovaginitis in diseases classified elsewhere
CPT/HCPCS: 81514

== ENCOUNTER 2023-06-05 09:43 | Outpatient (CLI) | payer MEDICARE, OTHER ==
[2023-06-05 10:09] LABS: CALCIUM 9.4 mg/dL (8.5-10.3); CREATININE 1.4 mg/dL (0.6-1.3); POTASSIUM 4.5 mmol/L (3.5-4.5)
[2023-06-05 11:56] LABS: ESTIMATED AVERAGE GLUCOSE 146 mg/dL (70-100); HEMOGLOBIN A1c% 6.7 % (4.27-6.07)
== END 2023-06-05 09:44 | disposition home or self-care (01) ==
LOC: LAB 09:43
PROVIDERS: ATTEND Internal Medicine
DX: E11.42 Type 2 diabetes mellitus with diabetic polyneuropathy (principal)
CPT/HCPCS: 36415; 80048; 83036

== ENCOUNTER 2023-07-24 12:15 | Outpatient (CLI) | payer MEDICARE, OTHER | END 2023-07-24 12:30 | disposition home or self-care (01) | LOC: LAB.N 12:15 | PROVIDERS: ATTEND Family Medicine | DX: M21.621 Bunionette of right foot (principal) | CPT/HCPCS: 87070; 87205 ==

== ENCOUNTER 2023-08-08 11:48 | Outpatient (CLI) | payer MEDICARE, OTHER ==
[2023-08-08 12:07] LABS: HCT - HEMATOCRIT 42.8 % (37.0-47.0); HGB - HEMOGLOBIN 13.2 g/dL (12.0-16.0); MEAN CORPUSCULAR HEMOGLOBIN 29.7 pg (27.0-31.0); MEAN CORPUSCULAR HGB CONC 30.8 g/dL (32.0-36.0); MEAN CORPUSCULAR VOLUME 96.2 fL (81.0-99.0); MEAN PLATELET VOLUME 10.4 fL (7.9-10.8); RED BLOOD COUNT 4.45 10^6/uL (4.20-5.40); RED CELL DISTRIBUTION WIDTH 13.8 % (12.0-15.0); WHITE BLOOD COUNT 9.2 x10^3/uL (4.8-10.8)
[2023-08-08 12:25] LABS: CALCIUM 9.3 mg/dL (8.5-10.3); CREATININE 1.4 mg/dL (0.6-1.3); POTASSIUM 5.2 mmol/L (3.5-4.5)
[2023-08-08 12:37] LABS: THYROID STIMULATING HORMONE 2.65 uIU/mL (0.34-5.60)
[2023-08-08 12:43] LABS: FERRITIN 59.9 ng/mL (11.0-306.8)
== END 2023-08-08 11:49 | disposition home or self-care (01) ==
LOC: LAB 11:48
PROVIDERS: ATTEND Family Medicine
DX: R53.1 Weakness (principal)
CPT/HCPCS: 36415; 80048; 82728; 84443; 85027

== ENCOUNTER 2023-09-11 10:13 | Outpatient (CLI) | payer MEDICARE, OTHER ==
[2023-09-11 10:45] LABS: CALCIUM 9.4 mg/dL (8.5-10.3); CREATININE 1.3 mg/dL (0.6-1.3); POTASSIUM 4.6 mmol/L (3.5-4.5)
[2023-09-11 11:50] LABS: ESTIMATED AVERAGE GLUCOSE 148 mg/dL (70-100); HEMOGLOBIN A1c% 6.8 % (4.27-6.07)
== END 2023-09-11 10:14 | disposition home or self-care (01) ==
LOC: LAB 10:13
PROVIDERS: ATTEND Internal Medicine Cardiovascular Disease
DX: E11.42 Type 2 diabetes mellitus with diabetic polyneuropathy (principal)
CPT/HCPCS: 36415; 80048; 80061; 83036; 83721; 85027

== ENCOUNTER 2023-09-16 09:28 | Outpatient (CLI) | payer MEDICARE, OTHER | END 2023-09-16 23:59 | disposition critical access hospital (66) | LOC: EMS 09:28 | DX: R07.89 Other chest pain (principal); R42 Dizziness and giddiness; R06.02 Shortness of breath | CPT/HCPCS: A0425; A0429 ==

== ENCOUNTER 2023-09-16 09:31 | Emergency (ER) | payer MEDICARE, OTHER ==
[2023-09-16 10:22] LABS: BASOPHILS % (AUTO) 0.5 %; EOSINOPHILS # (AUTO) 0.2 10^3/uL (0.0-0.7); EOSINOPHILS % (AUTO) 2.9 %; HCT - HEMATOCRIT 39.9 % (37.0-47.0); HGB - HEMOGLOBIN 12.2 g/dL (12.0-16.0); LYMPHOCYTES # (AUTO) 1.1 10^3/uL (1.5-3.5); LYMPHOCYTES % (AUTO) 19.4 %; MEAN CORPUSCULAR HGB CONC 30.6 g/dL (32.0-36.0); MEAN PLATELET VOLUME 10.7 fL (7.9-10.8); MONOCYTES # (AUTO) 0.5 10^3/uL (0.0-1.0); MONOCYTES % (AUTO) 8.7 %; NEUTROPHILS # (AUTO) 3.8 10^3/uL (1.5-6.6); NEUTROPHILS % (AUTO) 68.3 %; PLT - PLATELET COUNT 121 10^3/uL (130-450); RED CELL DISTRIBUTION WIDTH 13.4 % (12.0-15.0); WHITE BLOOD COUNT 5.6 x10^3/uL (4.8-10.8)
[2023-09-16 10:37] LABS: ALBUMIN 3.6 g/dL (3.2-5.5); ALBUMIN/GLOBULIN RATIO 1.2 (1.0-2.2); BILIRUBIN,TOTAL 0.6 mg/dL (0.2-1.0); CALCIUM 9.4 mg/dL (8.5-10.3); CREATININE 1.5 mg/dL (0.6-1.3); POTASSIUM 4.8 mmol/L (3.5-4.5); TOTAL PROTEIN 6.5 g/dL (6.4-8.9)
--- NOTE | 2023-09-16 10:40 | XRAY Report ---
PROCEDURE: Chest 1V INDICATIONS: Chest pain TECHNIQUE: One view of the chest was acquired. COMPARISON: 12/11/2022 FINDINGS: Surgical changes and devices: Mediastinal clips and sternotomy wires, some of which are broken. Left chest wall pulse generator with electrode leads. Lungs and pleura: Low lung volumes. Right mid lung nodule again seen. No dense consolidation. Mildly prominent interstitium. Mediastinum: Heart size is at the upper limit of normal. Cardiac mediastinal contours unchanged. Bones and chest wall: Degenerative changes. IMPRESSION: Mildly prominent interstitium, nonspecific, possibly edema or atypical infection. Low lung volumes. Indeterminate right mid lung nodule again seen. Reviewed by: Dick Egan MD on 09/16/2023 10:39 AM PDT Approved by: Dick Egan MD on 09/16/2023 10:39 AM PDT Station ID: [id number]
[2023-09-16 10:46] LABS: TROPONIN I HIGH SENSITIVITY 37.4 ng/L (2.3-14.8)
--- NOTE | 2023-09-16 11:06 | ED Physician Documentation ---
PD HPI CHEST PAIN - Stated complaint Stated Complaint: CP/SOA/DIZZY - Chief complaint Chief Complaint: Cardiac - Additional information Additional information: 83-year-old female with complex past medical history including macular degenerative disease, MIs, type 2 diabetes, chronic kidney disease, hypertension presents emergency department for multiple complaints. Patient said that she got COVID at the end of July and she has been feeling pretty fatigued malaise and rundown since then. She has been having new burning chest pain for she says for a long time now as well as dizziness that has been here for months but has gotten worse over the last couple days. Patient says that yesterday she is having a hard time ambulating around her house she is legally blind but she says that she has been very dizzy to the point where she is having a hard time ambulating despite her blindness. She recently saw her primary care provider Dr. Kelly for her dizziness who took her off her spironolactone and decrease her metoprolol from 50 mg to 25 mg twice a day and she has had no alleviation in her symptoms. She also has a 2-lead pacemaker of the upper and lower chamber, she reports that her county director welfare is Dr. Baum with [facility] cardiology. 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: Breast cancer, Other : Incontinence, Kidney stones HEENT: Chronic vision loss, Macular degeneration Psych: Anxiety Musculoskeletal: None Derm: None - Past Surgical History Past Surgical History: Yes General: Other /SENIOR MANUFACTURING TECHNICIAN: Hysterectomy, Oophrectomy, Mastectomy, Breast implants Cardiovascular: CABG, Coronary stent, AICD - Present Medications Home Medications: Ambulatory Orders Medication Instructions Recorded Confirmed Aspirin Chewable [[place] 81 mg PO DAILY 05/03/17 09/16/23 Aspirin] Atorvastatin Calcium 80 mg PO QPM 05/03/17 09/16/23 Insulin Glargine [Lantus Solostar] 8 unit SUBQ QPM 06/20/17 09/16/23 oxyBUTYnin chloride [Ditropan Xl] 5 mg PO DAILY 06/20/17 09/16/23 Insulin Lispro [Humalog Kwikpen] 1 - 3 unit SQ TIDWM 07/26/17 09/16/23 Acetaminophen [Tylenol Extra 1,000 mg PO QPM 07/25/19 03/25/24 Strength] [place]-3/Dha/Epa/Fish Oil [[place] 3 1 each PO DAILY 01/15/19 09/16/23 500 Softgel] Furosemide [Lasix] 20 mg PO DAILY 09/06/21 09/16/23 Cyclosporine [Restasis Multidose] 5.5 ml OP DAILY 09/07/22 09/16/23 Empagliflozin [Jardiance] 10 mg PO DAILY 09/07/22 09/16/23 Gabapentin [Neurontin] 100 - 300 mg PO HS 09/07/22 09/16/23 Hydroxychloroquine [Plaquenil] 200 mg PO DAILY 09/07/22 09/16/23 Metoprolol Succinate [Toprol Xl] 50 mg PO DAILY 09/07/22 09/16/23 Nitroglycerin [Nitrostat] 0.3 mg SL PRN PRN 09/07/22 09/16/23 polyethylene glycoL 3350 8.5 gm PO BID 09/07/22 09/16/23 [Polyethylene Glycol 3350] Meclizine [Antivert] 12.5 mg PO Q6H PRN #20 tablet 09/16/23 - Allergies Allergies/Adverse Reactions: Allergies Allergy/AdvReac Type Severity Reaction Status Date / Time hydromorphone [From Dilaudid] Allergy Severe Itching Verified 09/16/23 09:51 Penicillins Allergy Severe Rash Verified 09/16/23 09:51 lisinopril AdvReac Severe cough Verified 09/16/23 09:51 metformin AdvReac Severe Emesis Verified 09/16/23 09:51 - Social History Does the pt smoke?: No Smoking Status: Never smoker Does the pt drink ETOH?: No Does the pt have substance abuse?: No - Immunizations Immunizations are current?: Yes - POLST Patient has POLST: Yes PD ED PE NORMAL - Vitals Vital signs reviewed: Yes - General General: Alert and oriented X 3, No acute distress, Well developed/nourished - HEENT HEENT: Atraumatic, PERRL, EOMI, Ears normal, Moist mucous membranes - Neck Neck: No JVD - Cardiac Cardiac: RRR, No murmur, No gallop, Strong equal pulses - Respiratory Respiratory: No respiratory distress, Clear bilaterally - Abdomen Abdomen: Normal bowel sounds, Soft, Non tender, Non distended, No organomegaly - Back Back: No CVA TTP - Derm Derm: Normal color, Warm and dry, No rash - Extremities Extremities: No deformity, No edema - Neuro Neuro: Alert and oriented X 3, mining helper 2-12 intact, No motor deficit, No sensory deficit Eye Opening: Spontaneous Motor: Obeys Commands Verbal: Oriented GCS Score: 15 - Psych Psych: Normal mood Results - Vitals Vitals: Vital Signs - 24 hr 09/16/23 09/16/23 09/16/23 09:43 09:52 11:51 Temperature 35.9 C L Heart Rate 68 71 Respiratory 15 16 Rate Blood Pressure 107/60 124/75 Blood Pressure 107/60 [Right] O2 Saturation 98 09/16/23 09/16/23 14:02 15:53 Temperature Heart Rate 64 64 Respiratory 14 15 Rate Blood Pressure 120/74 108/56 L Blood Pressure [Right] O2 Saturation 93 94 Oxygen O2 Source Room air - EKG (time done) 0946 EKG releavant findings:: EKG personally interpreted by author of this note. Relevant findings are: Rate: Rate (enter#) (61) Rhythm: Paced, Other ([place] paced) [place]: LAD Intervals: Prolonged MT Ischemia: Normal ST segments, Other Other comments: Other comments (LVH) Computer interpretation: Agree with computer - Labs Labs: Laboratory Tests 09/16/23 09/16/23 09/16/23 10:15 10:15 12:31 WBC 5.6 RBC 4.20 Hgb 12.2 Hct 39.9 MCV 95.0 MCH 29.0 MCHC 30.6 L RDW 13.4 Plt Count 121 L MPV 10.7 Neut # (Auto) 3.8 Lymph # (Auto) 1.1 L [place] # (Auto) 0.5 Eos # (Auto) 0.2 Baso # (Auto) 0.0 Absolute Nucleated RBC 0.00 Nucleated RBC % 0.0 Sodium 137 Potassium 4.8 H Chloride 106 Carbon Dioxide 24 Anion Gap 7.0 BUN 34 H Creatinine 1.5 H Estimated GFR (MDRD) 33 L Glucose 126 H Calcium 9.4 Total Bilirubin 0.6 AST 25 ALT 16 Alkaline Phosphatase 71 Troponin I High Sens 37.4 H* 36.9 H* B-Natriuretic Peptide Total Protein 6.5 Albumin 3.6 Globulin 2.9 Albumin/Globulin Ratio 1.2 Lipase 14 Urine Color Urine Clarity Urine pH Ur Specific [place] Urine Protein Urine Glucose (UA) Urine Ketones Urine Occult Blood Urine Nitrite Urine Bilirubin Urine Urobilinogen Ur Leukocyte Esterase Urine RBC Urine WBC Ur Squamous Epith Cells Urine Bacteria Urine Culture Comments 09/16/23 09/16/23 12:31 13:30 WBC RBC Hgb Hct MCV MCH MCHC RDW Plt Count MPV Neut # (Auto) Lymph # (Auto) [place] # (Auto) Eos # (Auto) Baso # (Auto) Absolute Nucleated RBC Nucleated RBC % Sodium Potassium Chloride Carbon Dioxide Anion Gap BUN Creatinine Estimated GFR (MDRD) Glucose Calcium Total Bilirubin AST ALT Alkaline Phosphatase Troponin I High Sens B-Natriuretic Peptide 202 H Total Protein Albumin Globulin Albumin/Globulin Ratio Lipase Urine Color LT. YELLOW Urine Clarity CLEAR Urine pH 6.0 Ur Specific [place] 1.010 Urine Protein NEGATIVE Urine Glucose (UA) 500 H Urine Ketones NEGATIVE Urine Occult Blood NEGATIVE Urine Nitrite NEGATIVE Urine Bilirubin NEGATIVE Urine Urobilinogen 0.2 (NORMAL) Ur Leukocyte Esterase NEGATIVE Urine RBC None Seen Urine WBC 0-3 Ur Squamous Epith Cells FEW Squamous Urine Bacteria None Seen Urine Culture Comments NOT INDICATED - Rads (name of study) chest Xray Relevant Findings:: Final report received, EMP independent interpretation of test, Other (Interstitium, edema versus atypical infection, low lung volumes, right mid lung nodule) Head CT without Relevant Findings:: Final report received, EMP independent interpretation of test, Other (No acute intracranial abnormality) PD Medical Decision Making - ED course ED course: 83-year-old female presents emergency department for chest pain and dizziness. Head CT was complete for further evaluation of possible stroke versus hemorrhage versus any other sort of intracranial abnormality and it came back unremarkable and benign. I was unable to elicit patient's dizziness she says that it is kind of there constantly and she does not have any eye nystagmus. In regards to her chest pain the patient's troponins did come back slightly elevated at 36.9 we did a repeat in 2 hours and it came back at 37.4, BNP elevated at 202, creatinine 1.5, BUN 34, GFR 33. I called the patient's county director welfare Dr. Baum who I was not able to get a hold of I then spoke with [facility] on-call county director welfare as that is who patient is already established with and spoke with Dr. Davis who said that if patient needed any further workup neck step should be a stress test. When I informed the patient of this patient said that she did not want to pursue any other further interventions or workup as last time she had done a stress test she was hospitalized at [facility] for complications. Patient was also informed that she would benefit from brain MRI but I was not able to do so given that she has a pacemaker. I offered to transfer patient to another hospital for MRI as well as for stress test but patient said that she feels comfortable going home at this time. She said that couple years ago she was only given a couple months left to live and she is limited significantly longer than doctors anticipated she also was given a 50% chance of survival after breast cancer in the 90s and she feels very content with the life that she lives and understands going home that she could from possible worsening MS or stroke. Patient said that she would like to go home follow-up with her county director welfare outpatient as well as her primary care provider she understands the risk her caregivers at bedside, Her name is Evie and she understands patient's wishes to return home and understands the risks with this. Patient was given meclizine and Zyrtec prior to discharge to see if this could possibly help with the dizziness and head fullness that she is experiencing and a prescription of meclizine was sent to her preferred pharmacy if it were to work while she is here. All questions answered safe for discharge patient was informed if she changes her mind she is more than welcome to present back to the emergency department for further evaluation and workup. Departure - Departure Disposition: 01 Home, Self Care Clinical Impression: Elevated troponin, Dizziness Chest pain Qualifiers: Chest pain type: other chest pain Qualified Code(s): R07.89 - Other chest pain Instructions: ED Dizziness UKO Prescriptions: Meclizine [Antivert] 12.5 mg PO Q6H PRN #20 tablet PRN Reason: Dizziness Comments: Thank you for trusting us with your care, we have evaluated you for chest pain, dizziness. As we discussed your troponins are slightly elevated and cardiology is recommending a stress test. At this point in time you would like to pursue going home and you understand the risks of this including a possible undiagnosed stroke versus possible heart attack. We discussed looking to transfer you to another hospital but you kindly declined and said at this point in time you think you be more comfortable in your own home with the assistance of your caregivers. I would follow-up with your scheduled appoint with your primary care provider and feel free to reach out to cardiology if desired. If you change your mind and would like to pursue further workup feel free to come back to the emergency department keep in mind we will not be able to do an MRI with your pacemaker. Forms: PCP List Discharge Date/Time: 09/16/23 16:10
[2023-09-16] MEDS: SODIUM CHLORIDE 0.9% 500 ML IV ONE (11:31)
--- NOTE | 2023-09-16 12:46 | CT Report ---
PROCEDURE: Head WO INDICATIONS: dizziness TECHNIQUE: Noncontrast 4.5 mm thick angled axial sections acquired from the foramen magnum to the vertex. For r adiation dose reduction, the following was used: automated exposure control, adjustment of mA and/or kV according to patient size. COMPARISON: None. FINDINGS: Image quality: Diagnostic CSF spaces: Basal cisterns are patent. Lateral ventricles are symmetric. Volume: Vascular calcifications. Periventricular white matter disease is commonly seen with chronic m icroangiopathy. Volume loss is present. These findings are moderate. Brain: No intracranial hemorrhage. Edwards-white differentiation is grossly maintained. Craniofacial structures: No displaced fracture. No significant paranasal sinus opacification. IMPRESSION: No acute intracranial abnormality. If there is high concern for parenchymal pathology, consider furth er evaluation with MRI. Reviewed by: Dick Egan MD on 09/16/2023 12:45 PM PDT Approved by: Dick Egan MD on 09/16/2023 12:45 PM PDT Station ID: [id number]
[2023-09-16 13:57] LABS: BILIRUBIN,URINE NEGATIVE (NEGATIVE); GLUCOSE, URINE (UA) 500 mg/dL (NEGATIVE); KETONES,URINE (UA) NEGATIVE (NEGATIVE); LEUKOCYTE ESTERASE, URINE NEGATIVE (NEGATIVE); NITRITE,URINE NEGATIVE (NEGATIVE); OCCULT BLOOD,URINE NEGATIVE (NEGATIVE); PROTEIN,URINE NEGATIVE (NEGATIVE); UROBILINOGEN,URINE 0.2 (NORMAL) E.U./dL (NORMAL)
[2023-09-16 14:13] LABS: BACTERIA,URINE None Seen /HPF (None Seen); CLARITY,URINE CLEAR (CLEAR); RBC,URINE None Seen /HPF (0-5); SQUAMOUS EPITHELIAL CELL,UR FEW Squamous (<= Few); WBC,URINE 0-3 /HPF (0-5)
[2023-09-16] MEDS: MECLIZINE 12.5 MG TABLET PO STA (15:47)
[2023-09-16] MEDS: CETIRIZINE 10 MG TABLET PO STA (15:47)
[2023-09-16 15:57] VITALS: BP 108/56; O2SAT 94
== END 2023-09-16 16:10 | disposition home or self-care (01) ==
LOC: EDUNIT# → ED 09:31
DX: R07.89 Other chest pain (principal); R79.89 Other specified abnormal findings of blood chemistry; R42 Dizziness and giddiness; I12.9 Hypertensive chronic kidney disease with stage 1 through stage 4 chronic kidney disease, or unspecified chronic kidney disease; E11.22 Type 2 diabetes mellitus with diabetic chronic kidney disease; N18.9 Chronic kidney disease, unspecified; H54.8 Legal blindness, as defined in USA; I25.2 Old myocardial infarction; Z95.0 Presence of cardiac pacemaker; Z79.82 Long term (current) use of aspirin; Z79.899 Other long term (current) drug therapy; Z79.4 Long term (current) use of insulin; Z79.84 Long term (current) use of oral hypoglycemic drugs
CPT/HCPCS: 36415; 70450; 71045; 80053; 81001; 83690; 83880; 84443; 84484; 85025; 93005; 99284; A9270; P9612; 51701; 81003; 87086

== ENCOUNTER 2023-10-03 14:24 | Outpatient (CLI) | payer MEDICARE, OTHER ==
--- NOTE | 2023-10-03 17:08 | Ultrasound Report ---
PROCEDURE: Carotid Doppler Complete INDICATIONS: ORTHOSTATIC DIZZINESS TECHNIQUE: Color and pulse Doppler interrogation was performed of both carotid systems, with image documentation and velocity measurements. COMPARISON: None. FINDINGS: Right side: Brachial blood pressure: 135/55 mm Hg. Common carotid artery peak systolic velocity: 68 cm/sec. Internal carotid artery peak systolic velocity: 69 cm/sec. Internal carotid artery end diastolic velocity: 16 cm/sec. External carotid artery peak systolic velocity: 72 cm/sec. ICA/CCA peak systolic ratio: 1.0 . Edwards scale imaging description: Atheromatous plaque is present at the bifurcation. Percent internal carotid artery stenosis: Less than 50 percent stenosis. Vertebral artery: Flow direction is antegrade. Left side: Brachial blood pressure: 139/58 mm Hg. Common carotid artery peak systolic velocity: 72 cm/sec. Internal carotid artery peak systolic velocity: 64 cm/sec. Internal carotid artery end diastolic velocity: 20 cm/sec. External carotid artery peak systolic velocity: 82 cm/sec. ICA/CCA peak systolic ratio: 0.89 . Edwards scale imaging description: Atheromatous plaque is present at the carotid bifurcation. Percent internal carotid artery stenosis: Less than 50 percent stenosis. Vertebral artery: Flow direction is antegrade. IMPRESSION: 1. In the right internal carotid artery, there is less than 50 percent stenosis based on peak systoli c velocity criteria. 2. In the left internal carotid artery, there is less than 50 percent stenosis based on peak systolic velocity criteria. 3. Antegrade blood flow within the right vertebral artery. 4. Antegrade blood flow within the left vertebral artery. The estimate of stenosis included in the report of the imaging study was calculated using the [facility]-end orsed standards of carotid artery stenosis. Reviewed by: Patricia Milian MD on 10/03/2023 5:07 PM PDT Approved by: Patricia Milian MD on 10/03/2023 5:07 PM PDT Station ID: [id number]
== END 2023-10-03 14:25 | disposition home or self-care (01) ==
LOC: DI 14:24
PROVIDERS: ATTEND Internal Medicine
DX: I65.23 Occlusion and stenosis of bilateral carotid arteries (principal)
CPT/HCPCS: 93880

== ENCOUNTER 2024-02-11 11:40 | Outpatient (CLI) | payer MEDICARE, OTHER, MEDICAID ==
[2024-02-11 12:08] LABS: ALBUMIN 3.8 g/dL (3.2-5.5); ALBUMIN/GLOBULIN RATIO 1.2 (1.0-2.2); ALKALINE PHOSPHATASE 96 IU/L (42-121); ALT ALANINE AMINOTRANSFERASE 17 IU/L (10-60); AST ASPARTATE AMINOTRANSFERASE 25 IU/L (10-42); BILIRUBIN,TOTAL 0.7 mg/dL (0.2-1.0); BUN - BLOOD UREA NITROGEN 32 mg/dL (6-20); CALCIUM 8.9 mg/dL (8.5-10.3); CARBON DIOXIDE - CO2 24 mmol/L (21-32); CHLORIDE 107 mmol/L (101-111); CHOL/HDL RATIO 2.2 (<4.4); CHOLESTEROL 111 mg/dL; CREATININE 1.3 mg/dL (0.6-1.3); GFR - MDRD 39 (>89); GLUCOSE 129 mg/dL (74-104); HDL CHOLESTEROL 51 mg/dL; LDL CHOLESTEROL,CALCULATED 46 mg/dL; LDL/HDL RATIO 0.9 (<4.4); POTASSIUM 4.7 mmol/L (3.5-4.5); SODIUM 136 mmol/L (135-145); TOTAL PROTEIN 6.9 g/dL (6.4-8.9); TRIGLYCERIDES 68 mg/dL; VLDL CHOLESTEROL 14 mg/dL
[2024-02-11 12:23] LABS: THYROID STIMULATING HORMONE 3.17 uIU/mL (0.34-5.60)
[2024-02-11 12:25] LABS: ESTIMATED AVERAGE GLUCOSE 151 mg/dL (70-100); HEMOGLOBIN A1c% 6.9 % (4.27-6.07)
[2024-02-11 13:44] LABS: CREATININE,URINE 26.3 mg/dL; MICROALBUM/CREATININE RATIO,UR 45.6 ug/mg (<30.0); MICROALBUMIN,URINE 1.2 mg/dL
== END 2024-02-11 11:41 | disposition home or self-care (01) ==
LOC: LAB 11:40
PROVIDERS: ATTEND Internal Medicine
DX: E11.42 Type 2 diabetes mellitus with diabetic polyneuropathy (principal); E78.5 Hyperlipidemia, unspecified; K59.03 Drug induced constipation
CPT/HCPCS: 36415; 80053; 80061; 82043; 82570; 83036; 83721; 84443